=== PATIENT | male | born 1955 | race Caucasian/White ===

== ENCOUNTER 2018-07-11 08:00 | Outpatient (RCR) | payer OTHER, SELFPAY ==
--- NOTE | 2018-06-13 13:36 | PTTR_ITS ---
DATE: 06/13/18 SUBJECTIVE: [place] states he rec'd an injection; autologous blood, into the right elbow yesterday. This was the most painful injection he has had thus far regarding his right elbow; 3 injections. OBJECTIVE: Manual therapy: ([id number]). Humeroulnar joint distractions, proximal radial head PA mobs, forearm supination and pronation with hold relax techniques followed by passive wrist flexor and extensor stretching. Ended with cryotherapy x10 min. at no charge. Held on soft tissue mobs secondary to the injection. Will resume this 72 hours post injection when he is seen this coming Monday. Will review his strengthening program, as well, for radial deviation, forearm flexion and eccentric wrist extension. * [x] Ultrasound - (x [8] mins) - [id number]]: applied @3 megahertz 50% pulsed duty phonophoresis with Dex gel to the common extensor tendon on the right Direct treatment time: 45 min. MM/gc
--- NOTE | 2018-06-15 08:30 | PN_ITS ---
DATE: June 15, 2018 SUBJECTIVE: Budcontinues to complain of injection site pain. Has been wearing his arm counterforce brace. Does feel a little better than it did earlier this week when he was in for PT. Treatment: We resume his instrument assisted soft tissue mobilization. Did perform Ultrasound [id number]: phonophoresis 3mhz, 50% pulsed duty 1 w/cm2 with dex dex gel to lateral epicondyle, common extensor tendon. Manual Therapy [id number]: Instrument assisted soft tissue mobilization via Graston techniques with sweeping and fanning with GT 4 and 5 to the dorsal forearm, strumming along the common extensor tendon with GT3 as well as epicondylar framing with GT3. Then performed PRT's to the extensor musculature. Did review Therapeutic Procedure [id number]: Reviewed his therapeutic exercises for eccentric wrist extension and concentric wrist flexion and radial deviation as well as friction massage. Patient is going away on vacation for the next 10 days. Will follow up with him when he returns. Told him to work on his exercises through fatigue. Treatment time: Direct: 45 mins/Total 45 mins Plan: Will see him when he returns from vacation. MM/dl
--- NOTE | 2018-07-05 13:11 | PTTR_ITS ---
DATE: 07/05/18 SUBJECTIVE: [place] states his elbow is still a little sore. Had difficulty while on vacation when trying to kayak, as this aggravated his elbow. Is complaining of global arthralgias, medial and lateral elbows bilaterally, general fatigue in the leg musculature and admits to being a bit depressed. 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 OBJECTIVE: Manual therapy: ([id number]). IASTM via Graston Techniques for sweeping and fanning with GT 4 and 5 with elbow extended and flexed for muscle slack and tense positions. Performed strumming with GT 3 around the lateral epicondyle. Then performed soft tissue mobs, manually, to include PRTs to the extensor musculature. Also, performed proximal radial head mobs, humeroulnar joint distractions followed by hold relax mobs into supination and pronation. Ended with ice at no charge. * [x] Ultrasound - (x 8 mins) - [id number]: applied @1 megahertz 50% pulsed duty phonophoresis w/Dex gel to the right lateral epicondyle Direct treatment time: 8:30 til 9:00 A.M. Assessment: Tolerated session well. Decreased pain upon departing the clinic today. I do feel he'd benefit from more aggressive strengthening, which we will begin next week 2x with Jeremias Meza ATC for wrist extension, eccentric strengthening, finger extensor strengthening, forearm flexor and radial deviation strengthening as well as postural correction exercises. MM/gc
--- NOTE | 2018-07-11 08:00 | PTTR_ITS ---
DATE: 07/11/18 SUBJECTIVE: [place] states he finds the soft tissue mobilization with Graston techniques offers good symptom reduction. Admits he has not been very faithful with his HEP. Ultrasound [id number]: 3mhz, 50% pulsed phono with dex gel to the lateral epicondyle, common extensor tendon of the R arm followed by Manual therapy: ([id number]). Instrument assisted soft tissue mobilization via Graston incorporating fanning and sweeping through the dorsal forearm, extensors with GT 4 and 5 followed by some strumming with GT3 on the common extensor tendon and framing of lateral epicondyle GT 3. Then performed humeral , ulna joint distraction followed by mobilization into supination/pronation, hold/relax x3 in each direction. This was followed by review of his HEP consisting of eccentric wrist extension exercises, concentric wrist flexion and radial deviation. He was told to resume this activity. Direct treatment time: 30 mins Total treatment time: 30 mins P: Continue as above, will continue progressing with his strengthening and incorporate some therabar exercise. MM/dl
== END 2018-07-13 23:59 | disposition home or self-care (01) ==
LOC: PT 08:00
PROVIDERS: PCP Internal Medicine; Referring Provider Nurse Practitioner; Visit Provider Nurse Practitioner
DX: M77.11 Lateral epicondylitis, right elbow (principal)
CPT/HCPCS: 97035; 97110; 97140

== ENCOUNTER 2018-07-16 02:05 | Emergency (ER) | payer OTHER, SELFPAY ==
[2018-07-16] VITALS (9 sets, daily range): BP systolic 142–149; BP diastolic 76–83; PULSE 61–67; RESP 12–20; TEMP 36.8; O2SAT 94–98
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
[2018-07-16] MEDS: Ibuprofen 600 MG TAB PO (02:42)
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
== END 2018-07-16 02:55 | disposition home or self-care (01) ==
PROVIDERS: Emergency Provider Emergency Medicine; PCP Internal Medicine
DX: T75.4XXA Electrocution, initial encounter (principal); S80.02XA Contusion of left knee, initial encounter; W86.8XXA Exposure to other electric current, initial encounter; Y99.0 Civilian activity done for income or pay
CPT/HCPCS: 93005; 99284; 93010

== ENCOUNTER 2018-08-27 12:52 | Outpatient (REF) | payer OTHER, SELFPAY ==
[2018-08-27 20:42] LABS: HCT 43.2 % (40.0-50.0); Mean Corp. HGB Concentration 34.7 g/dL (32.0-36.0); Mean Corpuscular Hemoglobin 31.2 pg (27.0-33.0); Mean Corpuscular Volume 89.8 fL (80-95); Mean Platelet Volume 10.5 fL (8.0-11.0); Platelet Count 177 x1000/uL (130-400); RBC 4.81 m/cumm (4.50-6.00); RBC Distribution Width 13.5 % (11.8-14.1); White Blood Cell Count 6.66 k/cumm (4.4-10.8)
[2018-08-27 21:08] LABS: Hemoglobin A1C 5.8 % (4.5-6.2)
[2018-08-27 21:09] LABS: ALT 18 U/L (12-78); AST 23 U/L (15-37); Alkaline Phosphatase 62 U/L (46-116); Anion Gap 10.1 mmol/L (3-11); BUN 15 mg/dL (7-18); Bilirubin, Total 0.8 mg/dL (0.2-1.0); CO2 27.9 mmol/L (21.0-32.0); CREATININE 1.03 mg/dL (0.70-1.30); Calcium 9.1 mg/dL (8.5-10.1); Chloride 105 mmol/L (98-107); Glucose 111 mg/dL (70-100); Potassium 4.2 mmol/L (3.5-5.1); Sodium 143 mmol/L (136-145); TSH (W/Ref FT4) 0.87 uIU/mL (0.358-3.74)
[2018-08-27 22:37] LABS: Vitamin D 25 Total 24.1 ng/ml (30-100)
== END 2018-08-27 13:12 ==
LOC: NCHCN 12:52
PROVIDERS: PCP Internal Medicine; Visit Provider Internal Medicine
DX: R53.83 Other fatigue (principal)
CPT/HCPCS: 80053; 82306; 85027; 83036; 84443

== ENCOUNTER 2018-11-11 21:01 | Emergency (ER) | payer OTHER, SELFPAY ==
[2018-11-11 21:04] VITALS: BP 152/88; PULSE 76; RESP 16; TEMP 36.6; O2SAT 97
--- NOTE | 2018-11-11 21:18 | DI.RAD_ITS ---
SYMPTOMS/DIAGNOSIS: PAIN S/P FALL LUMBAR SPINE: There are no prior comparison exams. Degenerative disc changes are noted. No acute fracture is identified. The alignment appears normal. The SI joints and visualized portions of the hip joints appear intact. IMPRESSION: Degenerative changes. No acute abnormality.
--- NOTE | 2018-11-11 21:18 | DI.CT_ITS ---
SYMPTOMS/DIAGNOSIS: PAIN S/P FALL NONCONTRAST HEAD CT: No intracranial hemorrhage or skull fracture is seen. There is no significant atrophy or visible white matter changes. The ventricles are normal in size. The sinuses and mastoid air cells appear clear. IMPRESSION: Negative head CT. CT OF THE CERVICAL SPINE: No fracture or subluxation is seen. There are advanced degenerative disc changes from C4-5 through C7-T1. Facet joint degenerative changes are also seen. IMPRESSION: Degenerative changes. No acute abnormality.
[2018-11-11] MEDS: Acetaminophen 500 MG TAB 1000 MG PO (21:23)
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
--- NOTE | 2018-11-11 22:34 | DI.VRAD_ITS ---
EXAM: CT Head Without Contrast EXAM DATE/TIME: 11/11/2018 9:19 PM CLINICAL HISTORY: 63 years old, male; Pain; Headache; Post-traumatic; Neck pain; Patient HX: Pain after fall TECHNIQUE: Axial computed tomography images of the head/brain without contrast. All CT scans at this facility use at least one of these dose optimization techniques: automated exposure control; mA and/or kV adjustment per patient size (includes targeted exams where dose is matched to clinical indication); or iterative reconstruction. Coronal and sagittal reformatted images were created and reviewed. COMPARISON: No relevant prior studies available. FINDINGS: Brain: There is mild diffuse cerebral atrophy present, consistent with this patient's age. There is no significant white matter disease present. There is no evidence of intracranial hemorrhage. There is no evidence of acute intracranial injury or other pathologic process. There is no evidence of an acute ischemic event. No evidence of an acute intracranial abnormality. Ventricles: The ventricular system is normal in caliber and are seen in the midline. Bones/joints: The orbits are normal without evidence of fracture. The bony cranium shows no evidence of injury or other acute pathologic processes. Sinuses: Mucoperiosteal thickening consistent with chronic sinusitis. No air-fluid levels to suggest evidence of acute sinusitis. Mastoid air cells: The mastoid aircells are normal. Orbits: There is no evidence of retro-bulbar hemorrhage. There is no evidence of globe or lens injury. Soft tissues: The extracranial soft tissues are normal. IMPRESSION: No evidence of an acute intracranial abnormality. EXAM: CT Cervical Spine Without Contrast EXAM DATE/TIME: 11/11/2018 9:19 PM CLINICAL HISTORY: 63 years old, male; Pain; Headache; Post-traumatic; Neck pain; Patient HX: Pain after fall TECHNIQUE: Axial computed tomography images of the cervical spine without intravenous contrast. All CT scans at this facility use at least one of these dose optimization techniques: automated exposure control; mA and/or kV adjustment per patient size (includes targeted exams where dose is matched to clinical indication); or iterative reconstruction. Coronal and sagittal reformatted images were created and reviewed. COMPARISON: No relevant prior studies available. FINDINGS: Vertebrae: There is no evidence of acute vertebral body element or posterior vertebral element fracture. The anterior posterior borders of the vertebral bodies are in good alignment. No evidence of acute subluxation. No evidence of compression fractures. There are moderate to severe degenerative changes of the cervical spine. There are moderate degenerative changes of the facets. There are moderate to severe degenerative changes of the uncovertebral joints. The visualized portions of the skull base and brain are unremarkable. Discs/Spinal canal/Neural foramina: There are moderate to severe degenerative changes of the discs. Moderate neurforaminal narrowing secondary to degenerative changes present. Mild to moderate narrowing of the central spinal canal secondary to degenerative changes. There is no evidence of acute disc injury. The spinal canal and cord are otherwise normal. Soft tissues: Calcifications seen within the hypopharyngeal soft tissues bilaterally consistent with old inflammatory change. The prevertebal, paravertebral, pharyngeal, hypopharyngeal, and laryngeal soft tissue structures are otherwise unremarkable. Lymph nodes: There is no evidence of lymphadenopathy. Lungs: The visualized portions of the lung apices are unremarkable. IMPRESSION: 1. There is no evidence of acute vertebral body element or posterior vertebral element fracture. 2. The anterior posterior borders of the vertebral bodies are in good alignment. No evidence of acute subluxation. 3. There are moderate to severe degenerative changes of the cervical spine. 4. There is no evidence of acute disc injury. Dictated and Authenticated by: Vince Owusu MD. Ordering:RADHA Elizalde MD
--- NOTE | 2018-11-11 22:36 | DI.VRAD_ITS ---
EXAM: XR Lumbar Spine, 4 or 5 Views EXAM DATE/TIME: 11/11/2018 10:01 PM CLINICAL HISTORY: 63 years old, male; Pain; Low back pain; Patient HX: Trauma, fall TECHNIQUE: XR of the lumbar spine, 4 or 5 views. COMPARISON: No relevant prior studies available. FINDINGS: Vertebrae: Mild chronic compression of the lumbar vertebral bodies with sclerosis. There is no evidence of acute compression fractures or deformities. Spinal alignment is normal. Narrowing of the intervertebral disc spaces between L1 and L2, L2-L3, L3-L4 and L5-S1. There is mild degenerative osteophytosis and sclerosis. The facet joints show no evidence of degeneration. Sacrum/coccyx: The sacroiliac joints are within normal limits. Soft tissues: There are no soft tissue calcifications or masses. IMPRESSION: Degenerative changes of the lumbosacral spine no definitive evidence of acute fracture subluxation Dictated and Authenticated by: Vince Owusu MD. Ordering:RADHA Elizalde MD
[2018-11-11] MEDS: Cyclobenzaprine 10 MG TAB PO (22:53)
[2018-11-11 22:58] VITALS: BP 133/77; PULSE 72; RESP 16; O2SAT 95
== END 2018-11-11 23:00 | disposition home or self-care (01) ==
PROVIDERS: Emergency Provider Emergency Medicine; PCP Internal Medicine
DX: S09.90XA Unspecified injury of head, initial encounter (principal); S16.1XXA Strain of muscle, fascia and tendon at neck level, initial encounter; W00.0XXA Fall on same level due to ice and snow, initial encounter; S30.0XXA Contusion of lower back and pelvis, initial encounter
CPT/HCPCS: 99284; 70450; 72110; 72125

== ENCOUNTER 2019-03-21 07:33 | Outpatient (CLI) | payer OTHER, SELFPAY ==
[2019-03-21 08:12] LABS: Abs Immature Grans 0.01 k/cumm (0.0-0.09); Absolute Basophil Count 0.02 k/cumm (0.0-0.2); Absolute Lymphocyte Count 2.12 k/cumm (1.2-3.4); Absolute Monocyte Count 0.62 k/cumm (0.11-0.7); Absolute Neutrophil Count 4.08 k/cumm (1.2-6.7); Basophils % 0.3; Eosinophils % 2.8; HCT 44.3 % (40.0-50.0); HGB 15.1 g/dL (13.5-17.5); Immature Grans % 0.1; Lymphocytes % 30.1; Mean Corp. HGB Concentration 34.1 g/dL (32.0-36.0); Mean Corpuscular Hemoglobin 30.1 pg (27.0-33.0); Mean Corpuscular Volume 88.4 fL (80-95); Mean Platelet Volume 9.9 fL (8.0-11.0); Monocytes % 8.8; Neutrophils % 57.9; Platelet Count 172 x1000/uL (130-400); RBC 5.01 m/cumm (4.50-6.00); RBC Distribution Width 13.2 % (11.8-14.1); White Blood Cell Count 7.05 k/cumm (4.4-10.8)
[2019-03-21 08:50] LABS: Hemoglobin A1C 5.8 % (4.5-6.2)
[2019-03-21 09:09] LABS: ALT 15 U/L (12-78); AST 20 U/L (15-37); Albumin 3.9 g/dL (3.4-5.0); Alkaline Phosphatase 56 U/L (46-116); Anion Gap 11.6 mmol/L (3-11); BUN 15 mg/dL (7-18); Bilirubin, Total 0.8 mg/dL (0.2-1.0); CO2 27.4 mmol/L (21.0-32.0); CREATININE 1.06 mg/dL (0.70-1.30); Calcium 8.9 mg/dL (8.5-10.1); Chloride 104 mmol/L (98-107); Cholesterol 165 mg/dL (50-200); Glucose 96 mg/dL (70-100); HDL Cholesterol 38 mg/dL (40-60); LDL CHOLESTEROL 114 mg/dL (<100); Potassium 3.8 mmol/L (3.5-5.1); Sodium 143 mmol/L (136-145); Total Protein 6.8 g/dL (6.4-8.2); Triglyceride 95 mg/dL (30-150)
[2019-03-21 09:25] LABS: Vitamin D 25 Total 30.7 ng/ml (30-100)
[2019-03-21 09:27] LABS: NT-proBNP 27 pg/mL
== END 2019-03-21 07:53 ==
PROVIDERS: PCP Internal Medicine; Visit Provider Internal Medicine
DX: R53.83 Other fatigue (principal); R05 Cough; G47.33 Obstructive sleep apnea (adult) (pediatric); J30.81 Allergic rhinitis due to animal (cat) (dog) hair and dander; E55.9 Vitamin D deficiency, unspecified; R06.01 Orthopnea; Z00.00 Encounter for general adult medical examination without abnormal findings
CPT/HCPCS: 36415; 80053; 80061; 82306; 82533; 83721; 83036; 83880; 85025

== ENCOUNTER 2019-06-15 08:34 | Emergency (ER) | payer OTHER, SELFPAY ==
[2019-06-15 08:39] VITALS: BP 143/94; PULSE 70; RESP 15; TEMP 37; O2SAT 100
--- NOTE | 2019-06-15 08:56 | W.ED.GENAD ---
Discharge Plan Disposition Patient Disposition: HOME Condition: Stable Discharge Details Chief Complaint: Nk/Back Pain Clinical Impression: Acute thoracic myofascial strain Primary Care Provider: Sonu Espinosa ED Provider: Cristy Cox Home Meds and New Rx's Prescriptions: New cyclobenzaprine 10 mg tablet 10 mg PO TID PRN (Reason: muscle spasm) Qty: 10 RF: 0 Continued multivitamin [Multi-Day] 1 EACH tablet 1 ea PO DAILY RF: 0 cholecalciferol (vitamin D3) 5,000 UNIT tablet 5,000 unit PO DAILY RF: 0 acetaminophen [Mapap Extra Strength] 500 MG tablet 500 mg PO Q4H PRN PRNRF: 0 ibuprofen 600 MG tablet 600 mg PO Q6H PRN (Reason: Pain) Qty: 20 RF: 0 cyclobenzaprine 10 mg tablet 10 mg PO TID PRN (Reason: pain) Qty: 20 RF: 0 Discharge Instructions Instructions: Muscle Strain (ED) Additional Instructions: Alternate Tylenol and Motrin as needed and directed for pain. Alternate ice and heat to the affected area several times daily for 20 minutes at a time. Follow-up with your primary care doctor next week for reevaluation. Return to the emergency department if you develop any worsening or new concerning symptoms. 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 Pain extends from bilateral upper thoracic down to upper lumbar paraspinal region. Denies any radiation of pain to his upper or lower extremities. No cauda equina symptoms. No numbness or weakness in his arms. He has not taken anything for pain. He has tenderness to palpation of bilateral paraspinal thoracic and lumbar regions. No evidence of trauma. No focal deficits. Neurovascularly intact. As there is no direct or blunt trauma, do not see an indication for imaging and patient is agreeable. He is declining any medication for pain here. He is requesting a prescription for flexible which is worked for similar injuries in the past. Prescription for Flexeril given. Patient advised to alternate Tylenol and Motrin, ice and heat. He is advised to follow-up with his primary care doctor for reevaluation and to return here at any time if worse. Medical Records Medical records reviewed: Yes I reviewed the patient's medical records. HPI General Mode of arrival: ambulatory. Date/Time Provider Initiated Documentation: 06/15/19 08:45. Limitations to Documentation: no limitations. Information obtained by: patient. 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 Patient states the patient became weak and he held likely 75% of the patient's weight to prevent him from falling. He is now complaining of pain extending from his bilateral upper back near his trapezius down to his upper lower back bilaterally. He has not taken any medication for pain. Denies any extension of pain, numbness or weakness in his upper or lower extremities. Related Data Home Medications Medication Instructions Recorded Confirmed acetaminophen [Mapap Extra 500 mg PO Q4H PRN PRN 03/30/13 11/11/18 Strength] cholecalciferol (vitamin D3) 5,000 unit PO DAILY 03/30/13 11/11/18 multivitamin [Multi-Day] 1 ea PO DAILY 03/30/13 11/11/18 ibuprofen 600 mg PO Q6H PRN #20 tab 12/29/17 11/11/18 cyclobenzaprine 10 mg PO TID PRN #20 tab 11/11/18 cyclobenzaprine 10 mg PO TID PRN #10 tab 06/15/19 Previous Rx's Medication Instructions Recorded ibuprofen 600 mg PO Q6H PRN #20 tab 12/29/17 cyclobenzaprine 10 mg PO TID PRN #20 tab 11/11/18 cyclobenzaprine 10 mg PO TID PRN #10 tab 06/15/19 Allergies Allergy/AdvReac Type Severity Reaction Status Date / Time Latex, Natural Rubber Allergy Mild Itching Unverified 11/11/18 21:18 loratadine [From Claritin] AdvReac Intermediate COUGH Unverified 11/11/18 21:18 General Stated Complaint: Nk/Back Pain CASTRO: 3 Review of Systems Review of Systems All systems reviewed & are unremarkable except as noted in HPI and below Constitutional Reports as per HPI, Denies chills and Denies fever(s) Eyes Denies blurry vision ENT Denies dizziness, Denies sore throat and Denies throat swelling Cardiovascular Denies chest pain and Denies dyspnea Respiratory Denies cough and Denies dyspnea Gastrointestinal Denies abdominal pain, Denies diarrhea and Denies vomiting Genitourinary Denies hematuria and Denies dysuria Musculoskeletal Reports back pain and Denies numbness Integumentary/Breasts Denies lesions and Denies rash Neurologic Denies dizziness, Denies focal weakness and Denies numbness Allergic/Immunologic Denies throat swelling [facility] Medical History Obstructive sleep apnea (Chronic) Surgical History H/O hand surgery (Inactive) Social History Smoking/Tobacco Use Status: Never Drug use: Never Substance use type: does not use Do you feel safe in your relationship?: Yes Exam Const General: cooperative, healthy appearing and no acute distress HENMT Head: normal to inspection Face and sinus: normal facial exam Eyes General: appearance normal, both eyes and all related structures EOM: EOM intact bilaterally Neck Neck: normal visual inspection and No submandibular swelling Lymphatic: no lymphadenopathy noted Chest Chest: normal inspection of the chest and no tenderness Resp Effort & Inspection: normal respiratory effort and able to speak in complete sentences Cardio Rate: regular rate Back/Spine/Pelvis Thoracic/Lumbar Spine: thoracic and lumbar spine normal to inspection, paraspinal tenderness (extending from upper thoracic to upper lumbar b/l), No thoracic spinal tenderness and No lumbar spinal tenderness Skin General skin exam: no rashes or lesions noted Neuro General: alert, awake and oriented x3 Cognition: normal cognition Speech: speech normal Motor: muscle tone normal throughout and strength 5/5 throughout Sensory Exam: no sensory deficits noted Extrem General: normal to inspection, full ROM, normal capillary refill, no calf tenderness bilaterally and no edema Other: B/L radial/ulnar pulses intact. Psych Appearance: grossly normal Mental Status: mental status grossly normal Speech and Movement: speech and movement normal Affect: normal affect Course Vital Signs Temperature 98.6 F 06/15/19 08:39 Pulse 70 06/15/19 08:39 Respiratory Rate 15 06/15/19 08:39 Blood Pressure 143/94 H 06/15/19 08:39 Pulse Oximetry 100 06/15/19 08:39 Temperature 98.6 F 06/15/19 08:39 Temperature Source Skin 06/15/19 08:39 Pulse 70 06/15/19 08:39 Respiratory Rate 15 06/15/19 08:39 Respiratory Effort Non-Labored 06/15/19 08:39 Blood Pressure 143/94 H 06/15/19 08:39 Blood Pressure Position Sitting 06/15/19 08:39 Pulse Oximetry 100 06/15/19 08:39 Oxygen Delivery Method Room Air 06/15/19 08:39 Oxygen Flow Rate 0 06/15/19 08:39
== END 2019-06-15 09:25 | disposition home or self-care (01) ==
PROVIDERS: Emergency Provider Physician Assistant; PCP Internal Medicine
DX: S29.012A Strain of muscle and tendon of back wall of thorax, initial encounter (principal); X50.0XXA Overexertion from strenuous movement or load, initial encounter; Y99.0 Civilian activity done for income or pay
CPT/HCPCS: 99283

== ENCOUNTER 2019-10-16 09:09 | Outpatient (CLI) | payer OTHER, SELFPAY ==
--- NOTE | 2019-10-16 16:14 | DI.RAD_ITS ---
EXAM: XR HIP PELVIS ADULT BL INDICATION: HIP PAIN LT, M25.552, BACK PAIN LUMBAR RADICULOPATHY, M54.16, RT KNEE PAIN, M25.561 COMPARISON: XR lumbar spine complete from 11/11/2018 TECHNIQUE: 2D digital imaging was performed. FINDINGS: The hip joint spaces are well maintained. There is minimal acetabular spurring. The femoral heads are well maintained. There is mild spurring at the inferior SI joints. IMPRESSION: Mild degenerative changes.
== END 2019-10-16 09:29 ==
PROVIDERS: PCP Internal Medicine; Visit Provider Internal Medicine
DX: M25.552 Pain in left hip (principal); M54.5 Low back pain; M25.561 Pain in right knee; M53.3 Sacrococcygeal disorders, not elsewhere classified
CPT/HCPCS: 73521

== ENCOUNTER 2019-10-30 00:57 | Outpatient (CLI) | payer OTHER, SELFPAY ==
--- NOTE | 2019-10-30 08:55 | DI.MRI_ITS ---
EXAM: MR LUMBAR SPINE WO CLINICAL HISTORY: BACK PAIN LUMBAR WITH RADICULOPATHY, M54.16. TECHNIQUE: Multiplanar multisequence MRI was performed. COMPARISON: XR lumbar spine complete from 11/11/2018 FINDINGS: T11-12 and T12-L1 levels are unremarkable. The conus medullaris terminates at T12-L1. There is mild loss of disc height and slight disc bulging at L1-2. There is mild to moderate broad-based disc bulging at L2-3. There are mild facet degenerative change s and mild ligamentous hypertrophy but no significant neural foraminal narrowing or central canal alla nosis. At L L3-4, there is broad-based disc bulging. There is a superimposed tiny central disc protrusion. There is ligamentous hypertrophy and facet degenerative changes which combine to produce a moderate degree of central canal stenosis as well as moderate to severe bilateral neural foraminal narrowing. The L4-5 disc is well maintained in height. There is mild lateral bulging. There are mild facet join t degenerative changes and hypertrophy. There is no central canal stenosis. There is moderate bilat eral neural foraminal narrowing. There are bilateral L5 pars defects and slight L5-S1 spondylolisthesis, unchanged from previous plain films. There is mild concentric disc bulging but no central canal stenosis. There [id number] bilateral neural foraminal narrowing. The marrow signal appears normal. The aorta and visualized p ortions of the iliac arteries are normal in diameter. IMPRESSION: 1. Combination of degenerative disc changes, small central disc protrusion, facet degenerative carroll ge and ligamentous hypertrophy causes moderate central canal stenosis and moderate to severe bilatera l neural foraminal narrowing at L3-4. 2. Stable L5 spondylolysis and mild spondylolisthesis at L5-S1. Facet degenerative changes cause mary ateral neural foraminal narrowing at multiple levels.
== END 2019-10-30 01:17 ==
PROVIDERS: PCP Internal Medicine; Visit Provider Internal Medicine
DX: M54.16 Radiculopathy, lumbar region (principal); M54.5 Low back pain; M51.16 Intervertebral disc disorders with radiculopathy, lumbar region; M47.26 Other spondylosis with radiculopathy, lumbar region; M43.06 Spondylolysis, lumbar region; M43.17 Spondylolisthesis, lumbosacral region
CPT/HCPCS: 72148

== ENCOUNTER 2019-11-20 01:51 | Outpatient (CLI) | payer OTHER, SELFPAY ==
--- NOTE | 2019-11-20 08:18 | DI.MRI_ITS ---
EXAM: MR LOWER JOINT LT WO CLINICAL HISTORY: LT HIP PAIN, M25.552. TECHNIQUE: Multiplanar multisequence MRI was performed. COMPARISON: XR HIP PELVIS ADULT BL from 10/16/2019 FINDINGS: There is abnormal high signal in the marrow of the left femoral head and neck as well as in the adjac ent acetabulum. A small joint effusion is also present. There is no evidence of a discrete fracture . There appears to be slight collapse of the superior posterior femoral head. Overall, the marrow s hows some red marrow reconversion, which could be seen with anemia. The bladder, prostate and semina l vesicles are unremarkable. No significant abnormalities seen of the right hip. IMPRESSION: Marked marrow edema and slight collapse of the superior right femoral head, suspicious for avascular necrosis.
== END 2019-11-20 02:11 ==
PROVIDERS: PCP Internal Medicine; Visit Provider Internal Medicine
DX: M25.552 Pain in left hip (principal); M25.452 Effusion, left hip; M89.8X8 Other specified disorders of bone, other site
CPT/HCPCS: 73721

== ENCOUNTER 2019-12-13 07:36 | Outpatient (CLI) | payer OTHER, SELFPAY ==
[2019-12-13 08:35] LABS: HCT 44.6 % (40.0-50.0); HGB 14.9 g/dL (13.5-17.5); Mean Corp. HGB Concentration 33.4 g/dL (32.0-36.0); Mean Corpuscular Hemoglobin 29.7 pg (27.0-33.0); Mean Platelet Volume 9.6 fL (8.0-11.0); Platelet Count 190 x1000/uL (130-400); RBC 5.01 m/cumm (4.50-6.00); RBC Distribution Width 13.5 % (11.8-14.1); White Blood Cell Count 6.77 k/cumm (4.4-10.8)
[2019-12-13 08:55] LABS: Anion Gap 7.5 mmol/L (3-11); BUN 15 mg/dL (7-18); CO2 29.5 mmol/L (21.0-32.0); CREATININE 1.11 mg/dL (0.70-1.30); Calcium 8.6 mg/dL (8.5-10.1); Chloride 107 mmol/L (98-107); Glucose 103 mg/dL (74-106); Potassium 3.9 mmol/L (3.5-5.1); Sodium 144 mmol/L (136-145)
[2019-12-16 08:06] LABS: Vitamin D 25 Total 24.7 ng/ml (30-100)
[2019-12-18 11:37] LABS: Testosterone, Free 7.38 ng/dL (3.67-13.9); Testosterone, Total 369 ng/dL (240-950)
== END 2019-12-13 07:56 ==
PROVIDERS: Student in an Organized Health Care Education/Training Program; PCP Internal Medicine; Visit Provider Internal Medicine
DX: M25.552 Pain in left hip (principal); M87.052 Idiopathic aseptic necrosis of left femur; M16.12 Unilateral primary osteoarthritis, left hip; R53.83 Other fatigue; F41.9 Anxiety disorder, unspecified; Z01.818 Encounter for other preprocedural examination; Z01.812 Encounter for preprocedural laboratory examination
CPT/HCPCS: 36415; 80048; 82306; 82533; 84402; 84403; 85027; 86850; 86900; 86901

== ENCOUNTER 2019-12-16 11:53 | Outpatient (CLI) | payer OTHER, SELFPAY ==
--- NOTE | 2019-12-16 13:04 | DI.RAD_ITS ---
EXAM: XR PELVIS AP INDICATION: surgical planning. COMPARISON: XR HIP PELVIS ADULT BL from 10/16/2019 TECHNIQUE: 2D digital imaging was performed. FINDINGS: In the left hip there is moderate narrowing of the joint space. In the right hip there is mild narro wing of the joint space. The bones are normally mineralized and intact. The soft tissues are unrema rkable.
== END 2019-12-16 12:13 ==
PROVIDERS: PCP Internal Medicine; Visit Provider Physician Assistant
DX: M16.0 Bilateral primary osteoarthritis of hip (principal)
CPT/HCPCS: 72170

== ENCOUNTER 2019-12-31 11:52 | Inpatient (IN) | payer OTHER, SELFPAY ==
[2019-12-31] VITALS (13 sets, daily range): BP systolic 83–136; BP diastolic 54–88; PULSE 58–80; RESP 11–19; TEMP 34.1–36.9; O2SAT 96–98
--- NOTE | 2019-12-31 11:00 | DI.RAD_ITS ---
EXAM: XR HIP LT IN OR CLINICAL HISTORY: left total hip anterior. TECHNIQUE: 2D digital imaging was performed. COMPARISON: XR PELVIS AP from 12/16/2019 FINDINGS: Fluoroscopy was utilized by Dr. Colvin during the placement of a left total hip replacement. The o rthopedic hardware appears in good position. Please refer to the procedure report for complete detai ls. IMPRESSION: Status post left total hip replacement.
[2019-12-31] MEDS: Lactated Ringers 1,000 ML 80 ML IV ×3 (12:42→18:31)
[2019-12-31] MEDS: Acetaminophen 500 MG TAB 1000 MG PO ×2 (12:47→20:43)
[2019-12-31] MEDS: Celecoxib 200 MG CAP 400 MG PO (12:47)
[2019-12-31 13:18] LABS: HCT 42.6 % (40.0-50.0); HGB 14.7 g/dL (13.5-17.5); Mean Corp. HGB Concentration 34.5 g/dL (32.0-36.0); Mean Corpuscular Hemoglobin 30.1 pg (27.0-33.0); Mean Corpuscular Volume 87.3 fL (80-95); Mean Platelet Volume 9.2 fL (8.0-11.0); Platelet Count 182 x1000/uL (130-400); RBC 4.88 m/cumm (4.50-6.00)
[2019-12-31] MEDS: ceFAZolin 2 GM/50 ML BAG IVPB (14:02)
[2019-12-31 14:32] LABS: Anion Gap 10.5 mmol/L (3-11); BUN 14 mg/dL (7-18); CO2 27.5 mmol/L (21.0-32.0); CREATININE 1.06 mg/dL (0.70-1.30); Calcium 8.4 mg/dL (8.5-10.1); Chloride 106 mmol/L (98-107); Glucose 108 mg/dL (74-106); Potassium 3.8 mmol/L (3.5-5.1); Sodium 144 mmol/L (136-145)
[2019-12-31] MEDS: Bupivacaine 0.25% Pres-Free 30 ML VIAL (15:23)
[2019-12-31] MEDS: Ketorolac 30 MG/ML VIAL (15:23)
[2019-12-31] MEDS: fentaNYL 100 MCG/2 ML VIAL IVP ×2 (19:23→19:29)
--- NOTE | 2019-12-31 19:34 | W.PM.OP ---
Date of service: 12/31/19 Time of Service: 18:34 Operative Note Operative Note DATE OF PROCEDURE: 12/31/19 PRE-OP DIAGNOSIS: Left Hip Avascular Necrosis POST-OP DIAGNOSIS: other (Left Hip Avascular Necrosis and Hip Dysplasia) PROCEDURE: Left Anterior Total Hip Arthroplasty SURGEON: Gurjit Colvin MARKETING WRITER: Marcell Garcia ANESTHESIA: spinal ESTIMATED BLOOD LOSS: 1,800 PATHOLOGY: none sent COMPLICATIONS: None Patient was transported to: PACU Patient's condition: stable Implants: 1. Depuy Zearing Acetabular Component, 54mm 2. Depuy Acetabular Liner, [id number] 3. Depuy Corail Coxa Vara Femoral Stem, Size 13 4. Depuy Altrx Ceramic Femoral Head, Size 36+5mm Indications: I have seen Godwni in clinic for symptoms of hip pain from avascular necrosis in the setting of hip dysplasia, confirmed with radiographic findings (MRI and X-ray). Godwin has exhausted nonoperative methods and was having significant limitations in daily function and desired better function and less pain. I discussed the technical details of a hip replacement. I explained the risks of the procedure to include, but not limited to, bleeding, infection, pain, stiffness, fracture, damage to nerves and vessels, damage to muscles and tendons, loosening, instability, leg length inequality, need for repeat procedure, blood clot and cardiopulmonary demise. Despite these risks, Godwin elected to proceed. Findings: There was softening of the superior, weight bearing portion of the femoral head with obvious necrosis and articular collapse. He was significantly tight even on initial dissection. There is a significant adduction contracture and notable deformity of the femoral neck. There was concern of anterior instability which was resolved by going to a lateralize neck. Procedure Description: Godwin was greeted in the preoperative holding area where the correct side was identified and marked. The consent was reviewed with the patient and signed. The history and physical was updated. All questions were answered. Godwin was taken back to the operating room. A spinal anesthestic was then administered. The patient was placed into the supine position on the operating room table. The patient was then positioned onto the ARCH table. Both feet were wrapped with Webrill cotton wrap along with Coban. The feet were placed in specialized boots for the ARCH table, well seated within the boot and secured. SCDs were applied. The patient was then slid down onto a peroneal post and the nonoperative leg was secured in a leg de jesus attached to the table. The operative side was placed into the ARCH table attachment and bed height and positioning was secured. A preoperative AP pelvis was obtained to serve as a reference for determining leg lengths. Prophylactic antibiotics in the form of cefazolin were administered. 1g of Tranxemic Acid was given intravenously within 30 minutes of incision. The left leg was then prepped with Chloraprep and draped in a standard fashion. A second prep was performed prior to placing the final shower-curtain type drape with Iodine impregnated skin protection. A timeout to confirm correct identity, side and site, procedure, allergies, anesthesia, and medical concerns was performed. An obliquely oriented incision was made starting lateral to the ASIS and running distal over the Tensor Fascia Dolly (TFL) muscle belly toward the fibular head, approximately 10cm. The skin and soft tissue was dissected sharply, through Fermin?s fascia, and to the fascia of the TFL. With the fascia and superior border of the IT band identified, the fascia was incised with a new knife just above any perforators from the IT band. The TFL muscle belly was bluntly dissected away from the fascia and moved laterally. The fat between TFL and rectus was identified to ensure the dissection was not within the TFL. Blunt dissection created space between abductors and the capsule and retractor was placed over the lateral femoral neck. The fibers of the rectus femoris tendon were identified and these were freed from the anterior capsule. A second cobra retractor was placed around the medial femoral neck. The TFL was further retracted laterally to show the deep fascia. Careful dissection through this layer identified three main crossing vessels of the lateral femoral circumflex. These were cauterized in multiple locations and then cut without any noticeable bleeding. The TFL was further released bluntly from the deep fascia to expose anterior hip capsule and fat The Bayron orthopaedic retractor was then placed beneath the TFL and against sartorius and medial soft tissues to protect and retract the soft tissues. Even retraction at this point is quite difficult. There is very little excursion of the muscles. The fascia was released additionally both proximal and distal to try to encourage better mobility of the musculature. A T-capsulotomy was then performed starting at the superior lateral acetabulum and moving distally to the intertrochanteric ridge. These capsular flaps were tagged with a No. 1 Ethibond and elevated from within. The capsular flaps were released to the shoulder of the lateral neck and to the lesser trochanter to give excellent visualization of the proximal femur. A neck osteotomy was performed using an oscillating saw based on preoperative templates. This cut started above the shoulder and of the lateral neck and exited medially. The saw was at all times directed medially to avoid injury to the greater trochanter. 6cm of traction was applied to the leg and the osteotomy opened. The femoral head was removed with a corkscrew, making sure to protect the TFL on its exit. This was measured on the back table to determing the starting reamer size. There was a notable soft spot to the superior portion of the femoral head which was easily penetrated with a [place] and showed signs of obvious necrosis. There is also articular collapse at that area. Portions of the rectus obscuring visualization were minimally elevated off the superior acetabulum. An anterior retractor was placed over the anterior wall between capsule and labrum and held with the Gripper retraction system. A posterior retractor was placed similarly. This provided excellent visualization. The contents of the cotyloid fossa were removed with electrocautery and the labrum was removed with a knife. There was significant chondromalacia of the superior acetabulum. Acetabular reaming began with a 52 mm reamer. This first reaming was directed anterior to posterior and medial to get down to the true floor. I did make sure to medialize all the way to the ilioischial line given the narrow starting offset. I then reamed sequentially up to a 54 mm reamer where good fit was obtained. The larger reamers were oriented based on anatomical reference of the anterior and lateral bhandari to ensure proper abduction and anteversion. Positioning and size was confirmed with the fluoroscopy. A 54 mm Depuy Zearing acetabular component was selected. The deep tissues were irrigated. The acetabular component was then impacted in a position of about 40-45 degrees of abduction and 15-20 degrees of anteversion, using the patient?s anatomy as the ultimate landmark. Fluoroscopy was used to confirm this. There was excellent histological illustrator of the acetabular component and the inserting handle was removed. A primary acetabular screw was placed into the ilium by drilling through one of the holes in the acetabular component. This was measured and an approrpriately sized screw was placed with excellent purchase. It was checked not to be proud. A second screw was placed in a similar fashion. The acetabular liner, Depuy [id number] polyethylene liner, was inserted and lined up with the tines of the acetabular component. There was no soft tissue interposition. The liner was then impacted into position and confirmed to be well-seated. A portion of the mitra-articular cocktail was then injected around the acetabulum into the capsule and periosteum. This cocktail consisted of 50cc of 0.25% Bupivicaine and 20cc of Exparel, expanded to a total of 120cc. Traction was released from the femur. The leg was rotated to 120 degrees. Any remaining medial capsule was released until the lesser trochanter was easily palpable. A Daniels retractor was placed medially. The lateral capsule was further released into the shoulder to allow access to the greater trochanter. A Daniels retractor was placed over the greater trochanter which allowed the trochanter to flip in front of the capsule for excellent exposure. The leg was brought down into maximal extension and 20 degrees of adduction while ensuring there was no impingement on the acetabulum. Any remnant capsule within the trochanter was released. Piriformis and obturator externis were identified and protected. There was excellent access to the proximal femur. The lateral neck remnant was removed with a rongeur. A blunt canal probe was used to identify the canal and trajectory for later broaching. A box osteotome initiated the broach course. A small curved rasp and a curved curette were used to work laterally. Broaching then began with a size 8 Corail broach. This was inserted manually around the trochanter and into the canal before mallet blows. The broach was seated to a few millimeters below the cut level based on the neck cut and the preoperative template. Sequential broaching was continued until a tight fit was obtained with good rotational control of the femur. A trial standard neck was inserted along with a +1 trial head. The leg was brought out of extension and adduction and then reduced with traction and internal rotation. Unfortunately, the leg did not reduce easily. There was some soft tissue which was initially interposed which was removed. However, the proximal here almost seem to be elevated. I did not find any points of impingement. However, I did reduce with internal rotation. However, it was unstable and therefore the hip was dislocated and a coxa vara neck with a +5 trial head was inserted. This was then reduced and was noted to be more stable. However, it still had some shock at 70 degrees of external rotation and 20 degrees of extension although it was still stable in this position. Fluoroscopy was used to ensure there was no fracture and the stem was seated well. Leg lengths were checked with an AP pelvis and pelvic reference points. Once content with the desired offset and leg lengths, the leg was brought back into extension, external rotation and adduction. The periosteum and surrounding tissue was injected with remaining portion of the mitra-articular cocktail. The proximal femur was irrigated as well as the deep tissues. The Depuy Corail coxa vara stem, size 13, was then manually inserted into the proximal femur making sure to control rotation. It was then malleted into position with light blows, giving breaks to allow bone expansion and decrease risk of fracture. The selected Depuy Altrx Ceramic Head, size 36+5mm, was then placed onto the clean and dry trunnion and secured with impaction onto the tapered fit. There was noted be a very small crack in the medial calcar which was contained and did not separate with any attempt at prying it open. It did not go below the intertrochanteric line. The leg was brought back out of extension and adduction and reduced with traction and internal rotation. Stability was confirmed with no shuck at 90 degrees of external rotation and 30 degrees of extension. No impingement through range of motion arc. Final x-ray images were obtained with fluoroscopy to confirm adequate positioning and no intraoperative fracture. The deep tissues were thoroughly irrigated with Irrisept chlorhexidine solution. The second dose of TXA 1g was administered intravenously. The TFL fascia was finally closed with a No. 2 Stratafix, barbed suture. Deep tissues were then reapproximated with 0 Vicryl and a running 2-0 Vicryl. The skin was closed with a running 4-0 Monocryl in a subcuticular fashion. This was reinforced with skin glue. A Mepilex silver dressing was applied. At the end of the case, all counts were correct. Godwin was transferred to the hospital bed without difficulty and suffering significant blood loss of 1800 cc. This is mostly due to time in the OR with an oozing wound but no specific vascular injury. There is some concern about the stability of the hip although it was stable with final testing.. Maceo has a good prognosis. Physical therapy will start today and without restrictions, weight-bearing as tolerated, although I recommend knees wider than hips and avoiding hip extension. Aspirin 81mg BID will be used for DVT prophylaxis.
[2019-12-31] MEDS: Aspirin E.C. 81 MG TABEC PO (20:42)
[2019-12-31] MEDS: Celecoxib 200 MG CAP PO (20:42)
[2019-12-31] MEDS: ceFAZolin 1 GM/50 ML BAG IVPB (20:43)
[2019-12-31] MEDS: oxyCODONE 5 MG TAB PO (21:48)
[2020-01-01] MEDS: oxyCODONE 5 MG TAB PO ×4 (00:50→15:56)
[2020-01-01 03:45] VITALS: BP 100/65; BP 107/63; BP 123/73; BP 147/84; PULSE 100; PULSE 92; PULSE 94; PULSE 95; RESP 18; TEMP 37.2; O2SAT 97
[2020-01-01] MEDS: ceFAZolin 1 GM/50 ML BAG IVPB ×2 (04:02→11:37)
[2020-01-01] MEDS: Lactated Ringers 1,000 ML 1000 ML IV ×2 (06:59→13:41)
[2020-01-01 07:59] VITALS: BP 134/74; PULSE 74; RESP 19; TEMP 37.2; O2SAT 95
[2020-01-01 08:00] LABS: HCT 32.1 % (40.0-50.0); HGB 10.7 g/dL (13.5-17.5); Mean Corp. HGB Concentration 33.3 g/dL (32.0-36.0); Mean Corpuscular Hemoglobin 29.8 pg (27.0-33.0); Mean Corpuscular Volume 89.4 fL (80-95); Mean Platelet Volume 9.9 fL (8.0-11.0); Platelet Count 179 x1000/uL (130-400); RBC 3.59 m/cumm (4.50-6.00); RBC Distribution Width 13.1 % (11.8-14.1); White Blood Cell Count 10.59 k/cumm (4.4-10.8)
[2020-01-01] MEDS: Cholecalciferol (Vitamin D3) 1,000 UNIT TAB 5000 UNITS PO (08:20)
[2020-01-01] MEDS: Multivitamin TAB 1 TAB PO (08:21)
[2020-01-01] MEDS: Pantoprazole 40 MG TABCR PO (08:21)
[2020-01-01 08:22] LABS: Anion Gap 6.8 mmol/L (3-11); BUN 18 mg/dL (7-18); CO2 28.2 mmol/L (21.0-32.0); CREATININE 1.25 mg/dL (0.70-1.30); Calcium 7.7 mg/dL (8.5-10.1); Chloride 104 mmol/L (98-107); Estimated GFR 58.15 (mL/min/1.73m2); Glucose 142 mg/dL (74-106); Potassium 3.7 mmol/L (3.5-5.1); Sodium 139 mmol/L (136-145)
[2020-01-01] MEDS: Acetaminophen 500 MG TAB 1000 MG PO ×2 (08:22→13:41)
[2020-01-01] MEDS: Celecoxib 200 MG CAP PO (08:23)
[2020-01-01] MEDS: fentaNYL 100 MCG/2 ML VIAL IVP (08:24)
--- NOTE | 2020-01-01 08:55 | IN_ITS ---
Date of service: 01/01/20 Time of Service: 08:55 PT Notes Visit Reasons: OA (L) HIP Physical Therapy Inpatient Initial Evaluation Date: 01/01/2020 Referring Doctor: Gurjit Colvin M.D. PT Orders: PT CONSULT: s/p ortho surgery; s/p L anterior ROSE Precautions: Fall. Standard. Activity as tolerated. Patient Profile/Admitting Diagnosis: Pt is a 64-year-old male with a history of avascular necrosis and osteoarthritis of the left hip, presenting status post left total hip arthroplasty on post-operative day 0. PMHX: Medical History (Updated 12/12/19 @ 14:12 by Kong Brown) History of asthma (Acute) History of posttraumatic stress disorder (PTSD) (Acute) History of reactive airway disease (Acute) Hx of concussion (Acute) Hx of dislocation of shoulder (Acute) Hx of pleural effusion (Acute) Hx of tuberculosis (Acute) MULTIPLE CXR CLEARING PT. 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 Pt lives at home with , Michael, in [place]. Three stairs to enter the home with a rail on the right. No stairs once in the home. Equipment Owned/DME: cane, front-wheeled walker. Subjective: Pt reports that he is tired and a bit sleepy as he did not sleep well last night. Pt?s notes that he was able to stand at the edge of the bed at 4 A.M and walk to the bathroom. Objective: General Observation: Mepilex dressing over incision. Mental Status: alert and oriented x4 Pain: 4/10 in the L hip ROM: Right Upper Extremity: Shoulder Flexion WFL. Shoulder abduction WFL. Elbow flexion WFL. Wrist flexion WFL. Opening and closing of hand WFL. Left Upper Extremity: Shoulder Flexion WFL. Shoulder abduction WFL. Elbow flexion WFL. Wrist flexion WFL. Opening and closing of hand WFL. Right Lower Extremity: Hip flexion WFL. Hip abduction WFL. Knee flexion WFL. Ankle dorsiflexion WFL. Ankle plantarflexion WFL. Left Lower Extremity: Hip flexion WFL. Hip abduction WFL. Knee flexion WFL. Ankle dorsiflexion WFL. Ankle plantarflexion WFL. Strength: Right Upper Extremity: Shoulder flexors 5/5. Shoulder abductors 5/5. Elbow flexors 5/5. Elbow extensors 5/5. Rat Poisoner strong. Left Upper Extremity: Shoulder flexors 5/5. Shoulder abductors 5/5. Elbow flexors 5/5. Elbow extensors 5/5. Rat Poisoner strong. Right Lower Extremity: Hip flexors 5/5. Hip abductors 5/5. Knee flexors 4+/5. Knee extensors 5/5. Ankle dorsiflexors 5/5. Ankle plantarflexors 5/5. Left Lower Extremity: Hip flexors 4/5. Hip abductors 5/5. Knee flexors 4+/5. Knee extensors 5/5. Ankle dorsiflexors 5/5. Ankle plantarflexors 5/5. Sensation: Intact as to pain and pressure on bilateral lower extremities. Bed Mobility/Transfers: Sit to stand supervision Stand to sit supervision Bed to chair supervision Chair to bed supervision Gait: Pt was able to ambulate 50 feet + 120 feet + 50 feet, WBAT on the L LE, using a front-wheeled walker. Step through gait pattern with asymmetrical step length and height. CGA provided by PT student and supervision by the PT with wheelchair follow provided by the pt?s . He reports that the pain in his hip is reduced with walking. No complaints of dizziness, SOB, chest pain. Required cues to maintain a wide base of support. Balance: Static Sitting: Normal Dynamic Sitting: Normal Static Standing: Good Dynamic Standing: Fair Special Tests: Mobility Limitations Standardized Measure [facility]-PAC 6 clicks Basic Mobility Inpatient Short Form: Raw Score: 22 CMS Score: 21% deficit Informed Consent/Education: Patient instructed in purpose of PT consult and plan of care. Assessment: Pt is a 64-year-old male with a history of avascular necrosis and osteoarthritis of the left hip, presenting status post left total hip arthroplasty on post-operative day zero. He presents to physical therapy with impairment level findings and functional limitations as listed below. Patient presents with clinical signs and symptoms consistent with current/admitting diagnoses that have resulted to mobility limitations, gait instability, and generalized weakness as demonstrated by the following impairment level findings: 1. Decreased strength to B knee flexor muscle groups and L hip flexors. 2. Impaired standing balance 3. Impaired activity tolerance 4. Limitation of joint range of motion in left hip Impairments are contributing to the following functional limitations: 1. Increased dependence with transfers 2. Inability to safely ambulate without assistive device and physical assistance 3. Increase completion time for mobility ADL performance 4. Increased fall risk 5. Inability to negotiate steps alone safely Patient is assessed as a 53833 moderate complexity based on the following: History: He presents to physical therapy with impairment level findings and functional limitations as listed above. AM-PAC raw score of 22 with 21% deficit. Examination: Demonstrable impairment in strength, balance, and range of motion with underlying impairments and functional limitations as documented above Presentation: Evolving Decision Makin moderate complexity Goals: Goals X1 week 1. Sit-Stand independent 2. Stand-Sit independent 3. Bed-Chair independent 4. Chair-Bed independent 5. Independent gait on level surface with use of least restrictive device for at least 300 feet without report of pain nor dyspnea 6. Independent stair negotiation while holding onto bilateral rails for at least 4 steps without report of pain nor dyspnea 7. Independent with home exercise program 8. Good static and dynamic standing balance/tolerance Plan of Care/Treatment Plan: 1-2x/day, 7 days/week x 1 week. Plan of care has been reviewed with the GAMING FLOOR SUPERVISOR providing the service under Physical Therapy direction. Initiate Physical Therapy intervention for strengthening, bed mobility, transfers, gait, stairs, balance training, use of assistive device. DISCHARGE RECOMMENDATIONS: Discharge to home when medically cleared. No equipment recommendations at this time. TREATMENT CODE/TIME: 80948 x 25 minutes + 70055 x 10 minutes beginning at 8:55 A.M. Thank you very much for this referral. David Davila, SPT Doctor of Physical Therapy Student [facility] Supervision provided by Stephanie Edmondson PT, DPT, CLT [facility] [place], [place]
[2020-01-01] MEDS: Aspirin E.C. 81 MG TABEC PO (09:41)
[2020-01-01 12:26] VITALS: BP 132/77; PULSE 87; RESP 19; TEMP 37.2; O2SAT 97
[2020-01-01] MEDS: Normal Saline Flush 10 ML SYR IV (13:42)
--- NOTE | 2020-01-01 13:59 | W.PM.PROGNOT ---
Date of Service Date of service: 01/01/20 Time of Service: 13:59 Assessment and Plan Assessment and plan (1) Avascular necrosis of bone of left hip: Status: Acute Assessment and plan: Godwin is a 64-year-old status post left anterior total arthroplasty. This was a complicated hip with a blood of 1800 cc. His hemoglobin is stable today at 10.7. He is not symptomatic. He has been able to ambulate mobilize which is all encouraging. His Mari catheter has been removed and his urine output has been a little on the sluggish side. Therefore, I will repeat a bolus. He will continue to work physical therapy. I expect he will be able to go home later today or tomorrow. Given the difficulty of the case and the issue with anterior stability during the case, I recommend that he keeps his knees wider than his hips. Otherwise, he has no restrictions. Subjective Subjective Interval history since last seen: But reports some pain about the left hip. He has been able to get out of bed with help of his . He was able to ambulate with physical therapy this morning. He denies any popping or clicking sensation of the left hip. He does report some fullness and pain about the left hip which has responded to pain medications. He has had very mild lightheadedness but no true syncope or presyncope. His urine output has been a little sluggish. Exam Narrative Exam Narrative: Evaluation the left hip shows intact dressings. There is some fullness of the left hip but no ecchymosis. He tolerates some gentle internal X rotation without any significant increase in pain. Objective Objective Clinical Data: Abnormal lab results 12/31/19 01/01/20 01/01/20 Range/Units 13:05 07:08 07:08 RBC 3.59 L (4.50-6.00) m/cumm Hgb 10.7 L D (13.5-17.5) g/dL Hct 32.1 L D (40.0-50.0) % Glucose 108 H 142 H (74-106) mg/dL Calcium 8.4 L 7.7 L (8.5-10.1) mg/dL Vital Signs Temperature 37.2 C 01/01/20 12:26 Temperature Source Tympanic 01/01/20 12:26 Pulse 87 01/01/20 12:26 Pulse Rhythm Regular 12/31/19 23:30 Respiratory Rate 19 01/01/20 12:26 Respiratory Effort Non-Labored 12/31/19 23:30 Respiratory Depth Normal 12/31/19 23:30 Respiratory Pattern Normal 12/31/19 23:30 Blood Pressure 132/77 01/01/20 12:26 Pulse Oximetry 97 01/01/20 12:26 Respiratory End-tidal CO2 34 12/31/19 19:23 Oxygen Delivery Method Room Air 01/01/20 12:26 Oxygen Flow Rate 0 01/01/20 12:26 Pain Level 4 01/01/20 13:41 Intake & Output 12/31/19 01/01/20 01/01/20 23:59 11:59 23:59 Intake Total 2420 / 2420 660 / 660 Output Total 125 / 125 100 / 100 Balance 2295 / 2295 560 / 560 Weight 121.9 kg Intake: IV 2420 / 2420 50 / 50 Oral 610 / 610 Output: Urine 125 / 125 100 / 100 Other: Urine Color Yellow Dark Inés Urine Appearance Cloudy Clear Urine Odor Strong Comment very cloudy strong smelling urine passed in the urinal. Voiding Methods Urinal Laboratory Results WBC 10.59 k/cumm (4.4-10.8) D 01/01/20 07:08 RBC 3.59 m/cumm (4.50-6.00) L 01/01/20 07:08 Hgb 10.7 g/dL (13.5-17.5) L D 01/01/20 07:08 Hct 32.1 % (40.0-50.0) L D 01/01/20 07:08 MCV 89.4 fL (80-95) 01/01/20 07:08 MCH 29.8 pg (27.0-33.0) 01/01/20 07:08 MCHC 33.3 g/dL (32.0-36.0) 01/01/20 07:08 RDW 13.1 % (11.8-14.1) 01/01/20 07:08 Plt Count 179 x1000/uL (130-400) 01/01/20 07:08 MPV 9.9 fL (8.0-11.0) 01/01/20 07:08 Sodium 139 mmol/L (136-145) 01/01/20 07:08 Potassium 3.7 mmol/L (3.5-5.1) 01/01/20 07:08 Chloride 104 mmol/L (98-107) 01/01/20 07:08 Carbon Dioxide 28.2 mmol/L (21.0-32.0) 01/01/20 07:08 Anion Gap 6.8 mmol/L (3-11) 01/01/20 07:08 BUN 18 mg/dL (7-18) 01/01/20 07:08 Creatinine 1.25 mg/dL (0.70-1.30) 01/01/20 07:08 Estimated GFR/1.73 m2 58.15 (mL/min/1.73m2) 01/01/20 07:08 Glucose 142 mg/dL (74-106) H 01/01/20 07:08 Calcium 7.7 mg/dL (8.5-10.1) L 01/01/20 07:08 Patient ABO/Rh A Positive 12/31/19 13:05 Antibody Screen Negative 12/31/19 13:05
--- NOTE | 2020-01-01 14:25 | W.NUTCONSULT ---
Date of service: 01/01/20 Time of Service: 14:25 Nutritional Consult ASSESSMENT: 64 year old male s/p left total hip replacement. Advanced to Regular diet with adequate intake. BMI indicates class 2 obesity. Not considered at nutritional risk at this time. MONITORING AND EVALUATION: weight, po intake, labs Time Spent in Nutritional Counseling and Treatment: 0 time spent face to face
--- NOTE | 2020-01-01 14:39 | CHAPLAIN ---
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 He was up, getting ready to walk with PT when I visited. His , Michael, is also an [employer] nurse and will be caring for Huntington at home after he is discharged. I didn't visit long with Godwin as he was getting ready to work with PT.
--- NOTE | 2020-01-01 14:46 | PTTR_ITS ---
Date of service: 01/01/20 Time of Service: 14:46 PT Notes Visit Reasons: OA (L) HIP 01/01/2020 SUBJECTIVE: [place] stating he is having minimal discomfort overall. This increases slightly with movement. He notes that he was planning on using crutches as his assistive device for home. OBJECTIVE: Seated in his chair with family present. Review knees wider than hips precaution. Agreeable to PT treatment. TRANSFERS Sit to stand: S Stand to sit: S GAIT Device: FWW Weight bearing: AT L Assist: SBA Distance: 100'x2 Deviation: Attempt use of bilateral axillary crutches although pt is not steady and does not feel comfortable. STAIRS: 3-4 steps, 2-6 steps, bilateral rails, step to pattern, SBA. ASSESSMENT: Pt tolerates gait training well with use of FWW. He will benefit from FWW at home to maximize safe ambulation. No difficulty managing stairs this afternoon. PLAN: Continue per POC. Treatment time: 30 minutes [id number] Tomasa Story, DIRECTOR CASE MANAGEMENT
--- NOTE | 2020-01-01 15:20 | PDOC.CMIN ---
- If Service Date Differs Date of service: 01/01/20 Time of Service: 15:20 Care Management Initial Assess REASON FOR HOSPITALIZATION:: L Hip Replacement PAST MEDICAL HISTORY/PAST SURGICAL HISTORY:: Medical History (Updated 12/12/19 @ 14:12 by Kong Brown). History of asthma (Acute). History of posttraumatic stress disorder (PTSD) (Acute). History of reactive airway disease (Acute). Hx of concussion (Acute). Hx of dislocation of shoulder (Acute). Hx of pleural effusion (Acute). Hx of tuberculosis (Acute). MULTIPLE CXR CLEARING PT. Obstructive sleep apnea (Chronic). DOES NOT USE DEVICE. Surgical History (Updated 12/12/19 @ 13:32 by Kong Brown). H/O hand surgery (Inactive). History of thoracentesis (Acute) PREVIOUS FUNCTIONAL STATUS/SOCIAL/FAMILY SUPPORTS:: Sloan lives in [place] with his , Michael. 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 His also works at [employer] as an RN on the birthing center. They have two adult children who live in [place] and are very supportive. Sloan is independent at baseline. CURRENT FUNCTIONAL STATUS:: Sloan was sitting up in his chair when CM met with him. His and children were in the room visiting. He stated that he does not have pain in his hip, but he does in other areas. CM asked if he had discussed that with Dr. Colvin, which he did, and per MD, this is normal pain. Sloan asked CM to assist him and his with making changes to his AD. They both need to change Michael's last name as it has her maiden name listed. CM called the [place] [employer] who stated that they would have to fill out a new AD in order to make the change, which isn't necessary for that one change, as she is the same person. CM offered blank copies of AD, which they will fill out at a later date. Sloan reported that per MD, he may go home this afternoon. CM will continue to follow. ADVANCE DIRECTIVES:: Michael listed as agent. Has patient been provided with information about the portal?: No Did the patient sign up for the portal?: No CODE STATUS:: Full Code INSURANCE COVERAGE / FINANCIAL ISSUES:: Health Plans/ Self Pay/ / W Comp [facility] [employer] [facility] [employer] CURRENT HOME/COMMUNITY SERVICES/EQUIPMENT:: No Equipment or services at this time. PRIMARY CARE PHYSICIAN:: Sonu Espinosa POTENTIAL DISCHARGE NEEDS:: Evaluations for further needs, follow up appointment with Ortho PATIENT/FAMILY EDUCATION NEEDS:: Review discharge instructions regarding activity levels and medications, discussion of self care needs including ask me three ANTICIPATED BARRIERS TO DISCHARGE:: None at this time. TRANSPORTATION:: Sloan will transport home via private vehicle driven by his . PLAN:: Anticipate Sloan will return home with no additional services once medically cleared. CM will coordinate a FWW, as recommended by PT. He will follow up with Ortho in two weeks. He is agreeable to the plan.
[2020-01-01 15:28] VITALS: BP 158/84; PULSE 100; RESP 18; TEMP 37.4; O2SAT 98
--- NOTE | 2020-01-01 16:34 | PHARADMIT ---
Admission Pharmacy Clinical Review OA (L) HIP Code Status Full Code Current Weight Wgt-121.9 kg Renally Cleared and Narrow Therapeutic Index Meds CrCl~65 mL?min Meds-OK QTc Value / Action Taken NONE CURENT BP Control, Fever BP-150/84 Tmax- Electrolytes reviewed Na- 139 K+3.7 DVT Prophylaxis ASA-ec Opiate Usage / Scheduled Bowel Regimen Ordered Yes Yes Plt/SCr for Heparin / Enoxaparin Plts-179 SCr-1.25 INR for Warfarin na H/H stable, WBC/Bands H&H-10.7/32.1 WBC- 10.59 Antibiotic appropriateness Ancef Cultures and Sensitivities none Surgical ABX d/c within 24 hr Yes DM control / Insulin Dosing BG-142 Heart Failure (Check EF%) (RENETTA's, B-Block, Diuretics) na IV to PO Switch No Home Meds Reviewed Yes Home Meds Not Ordered Ibuprofen, Comments
--- NOTE | 2020-01-01 17:02 | W.PM.DS.N ---
Date of service: 01/01/20 Time of Service: 17:02 DS: Diagnosis Discharge Diagnosis (1) Avascular necrosis of bone of left hip: Status: Acute (2) Postoperative anemia due to acute blood loss: Status: Acute Discharge Plan Disposition Patient Disposition: HOME Condition: Improving Discharge Details Reason For Visit: OA (L) HIP Admit Date/Time: 12/31/19 11:52 Admit Provider: Gurjit Colvin Attending Provider: Gurjit Colvin Primary Care Provider: Sonu Espinosa Hospital Course Hospital Course: Patient was admitted to the medical/surgical floor following the procedure. It was tolerated well without any notable medical, surgical, or anesthetic complications. Mobilization began postoperatively. The verdin catheter was removed and voiding spontaneously. Vitals were stable. Physical therapy worked with the patient and was cleared for discharge home. No acute medical issues. Home Meds and New Rx's Prescriptions: New celecoxib 200 mg capsule 200 mg PO BID PRN (Reason: pain) Qty: 60 RF: 1 aspirin 81 mg tablet,delayed release (DR/EC) 81 mg PO BID Qty: 60 RF: 0 acetaminophen 500 mg tablet 1,000 mg PO Q8H PRN (Reason: pain) Qty: 90 RF: 3 pantoprazole 40 mg tablet,delayed release (DR/EC) 40 mg PO DAILY Qty: 30 RF: 0 oxycodone 5 mg tablet 5 mg PO Q4H Qty: 18 RF: 0 Continued multivitamin [Multi-Day] 1 EACH tablet 1 ea PO DAILY RF: 0 cholecalciferol (vitamin D3) 5,000 UNIT tablet 5,000 unit PO DAILY RF: 0 vitamin B complex-folic acid [B Complex 100] 0.4 mg Tablet 1 tab PO DAILY RF: 0 lorazepam 1 mg Tablet 1 mg PO QHS PRNRF: 0 Discontinued acetaminophen-codeine 300-15 mg tablet 1 tab PO BID PRN (Reason: pain) Qty: 14 RF: 0 acetaminophen [Mapap Extra Strength] 500 MG tablet 500 mg PO Q4H PRN PRNRF: 0 ibuprofen 600 MG tablet 600 mg PO Q6H PRN (Reason: Pain) Qty: 20 RF: 0 Discharge Instructions Additional Instructions: Dr. Colvin?s Total Hip Discharge Instructions Activity: The most important activity is to walk. You should try to take short walks a few times a day. You have no restrictions on movement or positioning, but do not try to force what you do. You will find some stiffness and weakness with hip flexion (lifting your knee). Do not try to strengthen this too early, continue to practice walking and stairs and this will come. - Outpatient physical therapy can be helpful to help return you to a normal gait and improve your flexibility and strength. This can start around 2 weeks. For some patients, it?s not necessary. Usually this is determined at the time of discharge or at the first post-operative visit. - You should wear the SCOTT hose on both legs for 2 weeks. Dressing: Keep the surgical dressing in place for at least one week. After the first week it may be removed and replace with light gauze and tape or nothing. It may get wet after 3 days but avoid soaking the dressing. If it gets wet, just lightly pat dry. It is important to always keep some gauze between skin folds, especially when you are sitting. Spend some time with the wound exposed when you are lying flat as the incision does wrinkle onto itself. Medications: - You should take Tylenol and an anti-inflammatory Celebrex as your primary pain control medications - You have been prescribed a stronger pain medication Oxycodone for breakthrough pain, take as needed as prescribed. - You have also been prescribed a stomach acid reduction agent Pantoprozole to help reduce stomach acid and reflux. - You will be taking Aspirin 81mg twice a day for DVT prevention unless instructed otherwise. - If you have constipation you should take Colace or Miralax (both [id number]). It takes most people 3-4 days to have a bowel movement. Follow-up: 2 weeks Referrals: Gurjit Colvin MD [ [facility] STAFF PHYSICIAN] - Activity:: Activity as Tolerated Equipment/Supplies:: Walker Diet:: As Tolerated Discharge Orders Discharge Orders: Discharge Order (Routine); Ordered 01/01/20 Ordered By: Gurjit Colvin DS: Summary Status at Discharge Functional status at discharge: uses cane/walker Overall status at discharge: patient is progressing back to baseline Mental Status: mental status grossly normal Speech and Movement: speech and movement normal Mood: congruent mood Affect: normal affect Exam Psych Mental Status: mental status grossly normal Speech and Movement: speech and movement normal Mood: congruent mood Affect: normal affect DS: Data Vitals/I&O Vitals and I&O: Vital Signs Temperature 37.4 C 01/01/20 15:28 Temperature Source Skin 01/01/20 15:28 Pulse 100 H 01/01/20 15:28 Pulse Rhythm Regular 01/01/20 08:50 Respiratory Rate 18 01/01/20 15:28 Respiratory Effort Non-Labored 01/01/20 08:50 Respiratory Depth Normal 01/01/20 08:50 Respiratory Pattern Normal 01/01/20 08:50 Blood Pressure 158/84 H 01/01/20 15:28 Pulse Oximetry 98 01/01/20 15:28 Respiratory End-tidal CO2 34 12/31/19 19:23 Oxygen Delivery Method Room Air 01/01/20 15:28 Oxygen Flow Rate 0 01/01/20 15:28 Pain Level 3 01/01/20 16:40 Intake & Output 12/31/19 01/01/20 01/01/20 23:59 11:59 23:59 Intake Total 2420 / 2420 710 / 2410 1700 / 2410 Output Total 125 / 125 150 / 275 125 / 275 Balance 2295 / 2295 560 / 2135 1575 / 2135 Weight 121.9 kg Intake: IV 2420 / 2420 100 / 1150 1050 / 1150 Oral 610 / 1260 650 / 1260 Output: Urine 125 / 125 150 / 275 125 / 275 Other: Urine Color Yellow Light Inés Light Inés Urine Appearance Cloudy Clear Clear Urine Odor Strong Strong Strong Comment very cloudy strong smelling urine passed in the urinal. documented from what was written on patients board. documented from what was written on patients board. Voiding Methods Urinal Urinal Data Completed and Pending Labs on day of discharge: Labs from last 24 hours 01/01/20 01/01/20 07:08 07:08 WBC 10.59 D RBC 3.59 L Hgb 10.7 L D Hct 32.1 L D MCV 89.4 MCH 29.8 MCHC 33.3 RDW 13.1 Plt Count 179 MPV 9.9 Sodium 139 Potassium 3.7 Chloride 104 Carbon Dioxide 28.2 Anion Gap 6.8 BUN 18 Creatinine 1.25 Estimated GFR/1.73 m2 58.15 Glucose 142 H Calcium 7.7 L PFSH Social History Smoking/Tobacco Use Status: Never Drug use: Never Substance use type: does not use Do you feel safe in your relationship?: Yes
--- NOTE | 2020-01-01 17:20 | PDOC.CMDIS ---
- If Service Date Differs Date of service: 01/01/20 Time of Service: 17:20 LACE Index Scoring Tool - Questions: Length of Stay (in days): 2 Acuity (Admit via E.D.?): No E.D. Visits: 1 - Answers: Total Score: 3 Risk of Readmission: Low Risk Care Management Discharge Reason for Hospitalization: L Hip Replacement Discharge Plan: Sloan will return home with no additional services at this time. His will drive him home via private vehicle. He will follow up with Ortho in two weeks. CM coordinated a FWW, as recommended by PT. He is agreeable to the plan. Patient/Family Education Needs: Review discharge instructions regarding activity levels and medications, discussion of self care needs including ask me three Services Needed at Discharge: DME Agency (FWW)
--- NOTE | 2020-01-03 09:37 | INDS_ITS ---
Date of service: 01/03/20 Time of Service: 09:37 PT Notes Visit Reasons: OA (L) HIP Date: 01/01/2020 Referring Doctor: Gurjit Colvin M.D. PT Orders: PT CONSULT: s/p ortho surgery; s/p L anterior ROSE Precautions: Fall. Standard. Activity as tolerated. Patient Profile/Admitting Diagnosis: Pt is a 64-year-old male with a history of avascular necrosis and osteoarthritis of the left hip, presenting status post left total hip arthroplasty on post-operative day 0. PMHX: Medical History (Updated 12/12/19 @ 14:12 by Kong Brown) History of asthma (Acute) History of posttraumatic stress disorder (PTSD) (Acute) History of reactive airway disease (Acute) Hx of concussion (Acute) Hx of dislocation of shoulder (Acute) Hx of pleural effusion (Acute) Hx of tuberculosis (Acute) MULTIPLE CXR CLEARING PT. 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 Pt lives at home with , Michael, in [place]. Three stairs to enter the home with a rail on the right. No stairs once in the home. Equipment Owned/DME: cane, front-wheeled walker. Subjective: Pt reports that he is tired and a bit sleepy as he did not sleep well last night. Pt?s notes that he was able to stand at the edge of the bed at 4 A.M and walk to the bathroom. Objective: General Observation: Mepilex dressing over incision. Mental Status: alert and oriented x4 Pain: 4/10 in the L hip ROM: Right Upper Extremity: Shoulder Flexion WFL. Shoulder abduction WFL. Elbow flexion WFL. Wrist flexion WFL. Opening and closing of hand WFL. Left Upper Extremity: Shoulder Flexion WFL. Shoulder abduction WFL. Elbow flexion WFL. Wrist flexion WFL. Opening and closing of hand WFL. Right Lower Extremity: Hip flexion WFL. Hip abduction WFL. Knee flexion WFL. Ankle dorsiflexion WFL. Ankle plantarflexion WFL. Left Lower Extremity: Hip flexion WFL. Hip abduction WFL. Knee flexion WFL. Ankle dorsiflexion WFL. Ankle plantarflexion WFL. Strength: Right Upper Extremity: Shoulder flexors 5/5. Shoulder abductors 5/5. Elbow flexors 5/5. Elbow extensors 5/5. Dry Starch Operator strong. Left Upper Extremity: Shoulder flexors 5/5. Shoulder abductors 5/5. Elbow flexors 5/5. Elbow extensors 5/5. Dry Starch Operator strong. Right Lower Extremity: Hip flexors 5/5. Hip abductors 5/5. Knee flexors 4+/5. Knee extensors 5/5. Ankle dorsiflexors 5/5. Ankle plantarflexors 5/5. Left Lower Extremity: Hip flexors 4/5. Hip abductors 5/5. Knee flexors 4+/5. Knee extensors 5/5. Ankle dorsiflexors 5/5. Ankle plantarflexors 5/5. Sensation: Intact as to pain and pressure on bilateral lower extremities. Bed Mobility/Transfers: Sit to stand supervision Stand to sit supervision Bed to chair supervision Chair to bed supervision Gait: Pt was able to ambulate 175 feet, WBAT on the L LE, using a front-wheeled walker. Step through gait pattern with asymmetrical step length and height. CGA provided by PT student and supervision by the PT with wheelchair follow provided by the pt?s . He reports that the pain in his hip is reduced with walking. No complaints of dizziness, SOB, chest pain. Required cues to maintain a wide base of support. Balance: Static Sitting: Normal Dynamic Sitting: Normal Static Standing: Good Dynamic Standing: Fair Informed Consent/Education: Patient instructed in purpose of PT consult and plan of care. Assessment: Pt is a 64-year-old male with a history of avascular necrosis and osteoarthritis of the left hip, presenting status post left total hip arthroplasty on post-operative day 1. Goals: Goals X1 week 1. Sit-Stand independent MET 2. Stand-Sit independent MET 3. Bed-Chair independent MET 4. Chair-Bed independent MET 5. Independent gait on level surface with use of least restrictive device for at least 300 feet without report of pain nor dyspnea MET 6. Independent stair negotiation while holding onto bilateral rails for at least 4 steps without report of pain nor dyspnea MET 7. Independent with home exercise program NOT MET 8. Good static and dynamic standing balance/tolerance NOT MET DISCHARGE RECOMMENDATIONS: Discharge to home when medically cleared. No equipment recommendations at this time. TREATMENT CODE/TIME: 17622 x 30 minutes. Thank you very much for this referral. Stephanie Edmondson PT, DPT, CLT [facility] [place], [place]
--- NOTE | 2020-01-03 09:50 | INDS_ITS ---
Date of service: 01/03/20 Time of Service: 09:50 PT Notes Visit Reasons: OA (L) HIP Physical Therapy Inpatient Discharge Summary Date: 01/01/2020 Dates of Service: 01/01/2020 This is a clinical summary of care provided on the duration of dates listed above. No charge was made in the completion of this documentation. Patient Profile/Admitting Diagnosis: Pt is a 64-year-old male with a history of avascular necrosis and osteoarthritis of the left hip, presented status post left total hip arthroplasty on post-operative day zero. Objective: General Observation: Mepilex dressing over incision. Mental Status: alert and oriented x4 Pain: 4/10 ROM: Right Upper Extremity: Shoulder Flexion WFL. Shoulder abduction WFL. Elbow flexion WFL. Wrist flexion WFL. Opening and closing of hand WFL. Left Upper Extremity: Shoulder Flexion WFL. Shoulder abduction WFL. Elbow flexion WFL. Wrist flexion WFL. Opening and closing of hand WFL. Right Lower Extremity: Hip flexion WFL. Hip abduction WFL. Knee flexion WFL. Ankle dorsiflexion WFL. Ankle plantarflexion WFL. Left Lower Extremity: Hip flexion WFL. Hip abduction WFL. Knee flexion WFL. Ankle dorsiflexion WFL. Ankle plantarflexion WFL. Strength: Right Upper Extremity: Shoulder flexors 5/5. Shoulder abductors 5/5. Elbow flexors 5/5. Elbow extensors 5/5. Refuge Manager strong. Left Upper Extremity: Shoulder flexors 5/5. Shoulder abductors 5/5. Elbow flexors 5/5. Elbow extensors 5/5. Refuge Manager strong. Right Lower Extremity: Hip flexors 5/5. Hip abductors 5/5. Knee flexors 4+/5. Knee extensors 5/5. Ankle dorsiflexors 5/5. Ankle plantarflexors 5/5. Left Lower Extremity: Hip flexors 4/5. Hip abductors 5/5. Knee flexors 4+/5. Knee extensors 5/5. Ankle dorsiflexors 5/5. Ankle plantarflexors 5/5. Sensation: Intact as to pain and pressure on bilateral lower extremities. Bed Mobility/Transfers: Rolling NT Supine to sit NT Sit to supine NT Sit to stand supervision Stand to sit supervision Bed to chair supervision Chair to bed supervision Gait: Pt was able to ambulate 100 feet x 2, WBAT on the L LE, using a front- wheeled walker. Step through gait pattern with asymmetrical step length and height. SBA provided by SUPERVISOR [employer]ING [employer]. Attempted use of bilateral axillary crutches, cecil camara, pt was not stable. Stairs: Pt was able to ascend and descend the 4-inch steps x 2 and 6-inch steps x 3 with bilateral upper extremity support on rails. SBA provided by SUPERVISOR [employer]ING [employer]. Balance: Static Sitting: Normal Dynamic Sitting: Normal Static Standing: Good Dynamic Standing: Fair Assessment: Pt is a 64-year-old male with a history of avascular necrosis and osteoarthritis of the left hip, presenting status post left total hip arthroplasty on post-operative day zero. He presented to physical therapy with impairment level findings and functional limitations as listed below. Pt demonstrate improvements in ambulation with decreased dependence by physical therapy and was able to tolerate negotiation of stairs without complaints of increased pain. He no longer requires skilled physical therapy at this time. Patient presented with clinical signs and symptoms consistent with current/admitting diagnoses that have resulted to mobility limitations, gait instability, and generalized weakness as demonstrated by the following impairment level findings: 1. Decreased strength to B knee flexor muscle groups and L hip flexors. 2. Impaired sitting/standing balance 3. Impaired activity tolerance 4. Limitation of joint range of motion in left hip Impairments continue to contribute to the following functional limitations: 1. Increased dependence with transfers 2. Inability to safely ambulate without assistive device and physical assistance 3. Increase completion time for mobility ADL performance 4. Increased fall risk 5. Inability to negotiate steps alone safely Patient is assessed as a [id number] moderate complexity based on the following: History: He presents to physical therapy with impairment level findings and functional limitations as listed above. AM-PAC raw score of 22 with 21% deficit. Examination: Demonstrable impairment in strength, balance, and range of motion with underlying impairments and functional limitations as documented above Presentation: Evolving Decision Makin moderate complexity Goals: Goals X1 week 1. Sit-Stand independent -NOT MET 2. Stand-Sit independent -NOT MET 3. Bed-Chair independent -NOT MET 4. Chair-Bed independent -NOT MET 5. Independent gait on level surface with use of least restrictive device for at least 300 feet without report of pain nor dyspnea -NOT MET 6. Independent stair negotiation while holding onto bilateral rails for at least 4 steps without report of pain nor dyspnea -MET 7. Independent with home exercise program -NOT MET 8. Good static and dynamic standing balance/tolerance -NOT MET DISCHARGE RECOMMENDATIONS: Discharge to home when medically cleared. No equipment recommendations at this time. Thank you very much for this referral. David Davila, SPT Doctor of Physical Therapy Student [facility] Supervision provided by Stephanie Edmondson PT, DPT, CLT [facility] [place], [place]
== END 2020-01-01 17:55 | disposition home or self-care (01) | DRG 470 ==
LOC: PDS 11:52 → MS 01-01 09:03
PROVIDERS: Admitting Provider Student in an Organized Health Care Education/Training Program; PCP Internal Medicine; Visit Provider Student in an Organized Health Care Education/Training Program
PROC: 0SRB04A Replacement of Left Hip Joint with Ceramic on Polyethylene Synthetic Substitute, Uncemented, Open Approach (ICD-10-PCS; CPT 27130; principal; 2019-12-31 15:30)
DX: M87.052 Idiopathic aseptic necrosis of left femur (principal); D62 Acute posthemorrhagic anemia; M25.552 Pain in left hip; Z96.642 Presence of left artificial hip joint; Y83.1 Surgical operation with implant of artificial internal device as the cause of abnormal reaction of the patient, or of later complication, without mention of misadventure at the time of the procedure; Q65.89 Other specified congenital deformities of hip; G47.33 Obstructive sleep apnea (adult) (pediatric)
CPT/HCPCS: 27130; 36415; 80048; 85027; 86850; 86900; 86901; 97162; 97530; NC; 73501; J0690; J1885; J2250; J2405; J3010

== ENCOUNTER 2020-01-16 11:10 | Outpatient (CLI) | payer OTHER, SELFPAY ==
--- NOTE | 2020-01-16 11:00 | DI.RAD_ITS ---
EXAM: XR HIP LT COMPLETE AP PELVIS INDICATION: 1ST POST OP. COMPARISON: XR HIP LT IN OR from 12/31/2019 TECHNIQUE: 2D digital imaging was performed. FINDINGS: There are stable postsurgical changes of a left total hip replacement. No evidence of hardware failu re is seen. The bones are intact. The soft tissues are unremarkable. IMPRESSION: Stable left THR. DATA REPOSITORY: RADIATION DOSE DELIVERED:
== END 2020-01-16 11:30 ==
PROVIDERS: PCP Internal Medicine; Visit Provider Student in an Organized Health Care Education/Training Program
DX: Z96.642 Presence of left artificial hip joint (principal); Z47.1 Aftercare following joint replacement surgery
CPT/HCPCS: 73502

== ENCOUNTER 2020-02-10 10:58 | Outpatient (CLI) | payer OTHER, SELFPAY ==
--- NOTE | 2020-02-10 10:30 | DI.RAD_ITS ---
EXAM: XR HIP LT AP LAT ONLY CLINICAL HISTORY: eval L ROSE, new pain TECHNIQUE: COMPARISON: XR HIP LT COMPLETE AP PELVIS from 01/16/2020 FINDINGS: Two views were obtained and show total hip joint replacement in position. The components appear well seated. No other significant bony abnormality seen. IMPRESSION:
== END 2020-02-10 11:18 ==
PROVIDERS: PCP Internal Medicine; Visit Provider Student in an Organized Health Care Education/Training Program
DX: Z96.642 Presence of left artificial hip joint (principal); Z47.1 Aftercare following joint replacement surgery; M87.052 Idiopathic aseptic necrosis of left femur
CPT/HCPCS: 73502

== ENCOUNTER 2020-03-17 10:23 | Outpatient (REF) | payer OTHER, SELFPAY ==
[2020-03-17 21:37] LABS: Anion Gap 6.8 mmol/L (3-11); BUN 12 mg/dL (7-18); CO2 29.2 mmol/L (21.0-32.0); Calcium 8.9 mg/dL (8.5-10.1); Chloride 105 mmol/L (98-107); Glucose 100 mg/dL (74-106); Sodium 141 mmol/L (136-145)
[2020-03-17 22:14] LABS: Hemoglobin A1C 5.8 % (3.8-5.6)
[2020-03-19 05:35] LABS: Vitamin D 25 Total 23.8 ng/ml (30-100)
[2020-03-20 11:26] LABS: Varicella IgG Antibody Positive (See Note)
[2020-03-20 12:38] LABS: HSV Type 1 Ab, IgG Negative (Negative); HSV Type 2 Ab, IgG Positive (Negative)
== END 2020-03-17 10:43 ==
LOC: NCHCN 10:23
PROVIDERS: PCP Internal Medicine; Visit Provider Internal Medicine
DX: R21 Rash and other nonspecific skin eruption (principal); E55.9 Vitamin D deficiency, unspecified; R03.0 Elevated blood-pressure reading, without diagnosis of hypertension; Z11.59 Encounter for screening for other viral diseases
CPT/HCPCS: 80048; 82306; 86787; 87798; 83036; 86695; 86696

== ENCOUNTER 2020-03-24 12:33 | Outpatient (REF) | payer OTHER, SELFPAY ==
[2020-03-26 14:00] LABS: HSV 1 DNA Result Negative (Negative); HSV 2 DNA Result Positive (Negative)
== END 2020-03-24 12:53 ==
LOC: NCHCN 12:33
PROVIDERS: PCP Internal Medicine; Visit Provider Internal Medicine
DX: Z11.8 Encounter for screening for other infectious and parasitic diseases (principal)
CPT/HCPCS: 87529

== ENCOUNTER 2020-08-28 13:43 | Outpatient (REF) | payer OTHER, SELFPAY ==
[2020-09-01 15:18] LABS: Patient Race White; SARS-CoV-2 RNA Undetected (Undetected); SARS-CoV-2 Specimen Source Nasal
== END 2020-08-28 14:03 ==
LOC: NCHCN 13:43
PROVIDERS: PCP Internal Medicine; Visit Provider Internal Medicine
DX: Z20.828 Contact with and (suspected) exposure to other viral communicable diseases (principal)
CPT/HCPCS: U0003

== ENCOUNTER 2020-08-31 09:01 | Day surgery (SDC) | payer OTHER, SELFPAY ==
--- NOTE | 2020-08-31 06:47 | COLE_ITS ---
Date of service: 08/31/20 Time of Service: 10: Colonoscopy Report Date of procedure: 08/31/20 Pre-op diagnosis general: Colon Cancer Screening Post-op diagnosis procedure note: other (ectal polyps and ascending colon polyp) Procedure: Colonoscopy with polypectomy Surgeon: Debby Sales Anesthesia proc note operative: other (General/ASA 2/Xiomara Hoffmann, IBIS) Estimated blood loss (mL): 2 Pathology: other (Ascending polyps and rectal polyp) Complications: None Disposition: same day Indications: The patient is here for Colonoscopy pre-op. His last screening was 10 years ago at the [place] and was unremarkable. He has no family history of colon cancer. He has not had any bowel habit changes. -Discussed colonoscopy bowel prep as well as the procedure. Discussed possible complications of the procedure to include bleeding, pain, perforation, missed small lesion/polyp, sore throat, aspiration and adverse reaction to the medications. Questions were answered to patient?s satisfaction. No guarantees were implied or given. He expressed concern regarding being combative in the past following surgical procedures and waking from anesthesia. Will discuss with anesthesia that the patient would like to have his significant other with him upon waking from sedation. Prep: Miralax/Dulcolax Procedure Start Time: 10:20 Procedure End Time: 10:46 Retraction Time: 20 minutes Findings: 2 small polyps Procedure Description: After informed consent was obtained the patient was taken to the procedure room and placed in a left decubitous position. Monitors were applied and a time out was done. The patients name, date of , proced ure, allergies to medications and metal in their body was reviewed. The patient was then sedated. Once sedated and comfortable a rectal exam was done. External exam was normal. Internal exam revealed a normal sphincter tone and no palpable masses. I was unable to feel his prostate The scope was then introduced and retro-flexed. No internal hemorrhoids were identified. The scope was then advanced to the cecum without difficulty. The ileocecal valve and appendiceal orifice were identified. The prep was good. The scope was then slowly retracted over 20 minutes back into the rectum. Dev yps were removed with cold forceps in the ascending colon and rectum. The scope was removed and the patient was woken up and taken back to Same day surgery in stable condition. The patient tolerated the procedure well and there were no immediate complications. Follow up: Depends on final pathology
--- NOTE | 2020-08-31 06:48 | W.PM.DSUDISC ---
Discharge Plan Disposition Patient Disposition: HOME Condition: Good Discharge Details Reason For Visit: Colonoscopy Attending Provider: Debby Sales Primary Care Provider: Sonu Espinosa Home Meds and New Rx's Prescriptions: Continued albuterol sulfate 90 mcg/actuation HFA aerosol inhaler 2 puff inhalation Q6H PRNRF: 0 multivitamin [Multi-Day] 1 EACH tablet 1 ea PO DAILY RF: 0 cholecalciferol (vitamin D3) 5,000 UNIT tablet 5,000 unit PO DAILY RF: 0 vitamin B complex-folic acid [B Complex 100] 0.4 mg Tablet 1 tab PO DAILY RF: 0 acetaminophen 500 mg tablet 1,000 mg PO Q8H PRN (Reason: pain) Qty: 90 RF: 3 Discharge Instructions Additional Instructions: Findings: 2 small polyps Follow up: depends on final pathology results. Please call if you develop: fevers >101.5 Nausea or Vomiting Abdominal pain that is not transient DAY SURGERY UNIT POST ENDOSCOPY INSTRUCTIONS 1. Because there will be medication in your system for the next 24 hours, you may feel a little sleepy. Your coordination will be affected. Therefore: a. Do not drive or operate dangerous equipment for 24 hours. b. Do not drink alcohol beverages for 24 hours (not even beer). c. Plan to go home and rest for the day. 2. Generally there are no restrictions on your activity after a day or so has gone by, but you may feel a bit fatigued for a few days. 3 After you arrive home you may have a light meal and return to a normal diet as you can tolerate it without feeling sick to your stomach. 4. After surgery, you may feel pain or discomfort. This should be only transient, but if it persists please contact your doctor. 5. If there are any questions regarding the findings of your procedure, please feel free to contact your doctor. 6. If you are unable to contact your doctor with a problem, contact the hospital at [phone]. 7. Continue all your regular medications unless directed otherwise. I understand the above instructions and have no questions. Signature of Patient or Responsible Adult Escort Date/Time Name of Responsible Adult Escort Signature of Nurse Date/Time Activity:: Activity as Tolerated Diet:: As Tolerated Discharge Orders Discharge Orders: Discharge Order (Routine); Ordered 08/31/20 Ordered By: Debby Sales
[2020-08-31 09:10] VITALS: BP 150/92; PULSE 79; RESP 18; TEMP 36.6; O2SAT 99
[2020-08-31] MEDS: Lactated Ringers 1,000 ML 80 ML IV (09:34)
--- NOTE | 2020-08-31 10:21 | BOWEL_PTH ---
PATIENT: Sloan Syed LOC: [facility] U#:[id number] AGE/SX: 64/M ROOM: RE08/31/[address]: Debby Sales MD : [id number] BED: DIS: 08/31/2020 SPEC #: [id number] RECD: 08/31/20 12:48 STATUS: [facility] REQ #: [id number] JERRICA: 08/31/20 10:[address]: Debby Sales DEPT: Surgical Specimen RECD BY: Julissa Lora ENTERED: 08/31/20 12:48 SP TYPE: Bowel OTHR DR: Sonu Espinosa Tissues: 1 - BIOPSY BOWEL 2 - BIOPSY BOWEL Procedures: GROSS AND MICRO LEVEL 4 Comments: [id number]
[2020-08-31 10:45] VITALS: BP 125/74; PULSE 68; RESP 18; TEMP 36.5; O2SAT 100
[2020-08-31 10:50] VITALS: BP 120/76; PULSE 68; RESP 18; TEMP 36.5; O2SAT 100
[2020-08-31 10:55] VITALS: BP 127/78; PULSE 66; RESP 14; TEMP 36.5; O2SAT 100
[2020-08-31 11:10] VITALS: BP 127/73; PULSE 67; RESP 15; TEMP 36.6; O2SAT 98
[2020-08-31 11:35] VITALS: BP 116/73; PULSE 62; RESP 16; TEMP 36.3; O2SAT 96
== END 2020-08-31 12:15 | disposition home or self-care (01) ==
PROVIDERS: PCP Internal Medicine; Visit Provider Surgery
PROC: 0DJD8ZZ Inspection of Lower Intestinal Tract, Via Natural or Artificial Opening Endoscopic (ICD-10-PCS; CPT 45378; principal; 2020-08-31 10:00)
DX: Z12.11 Encounter for screening for malignant neoplasm of colon (principal); D12.2 Benign neoplasm of ascending colon; D12.8 Benign neoplasm of rectum
CPT/HCPCS: 45380; 88305; J2704

== ENCOUNTER 2020-11-04 11:22 | Outpatient (REF) | payer OTHER, SELFPAY ==
[2020-11-06 00:03] LABS: COVID-19 RT-PCR UVMMC Result Negative (Negative)
== END 2020-11-04 11:42 ==
LOC: NCHCN 11:22
PROVIDERS: PCP Internal Medicine; Visit Provider Internal Medicine
DX: Z11.59 Encounter for screening for other viral diseases (principal)
CPT/HCPCS: U0003

== ENCOUNTER 2020-12-10 15:44 | Outpatient (REF) | payer OTHER, SELFPAY ==
[2020-12-10 20:25] LABS: COVID-19 RT-PCR UVMMC Result Negative (Negative)
== END 2020-12-10 16:04 ==
LOC: NCHCN 15:44
PROVIDERS: PCP Internal Medicine; Visit Provider Internal Medicine
DX: Z20.822 Contact with and (suspected) exposure to COVID-19 (principal)
CPT/HCPCS: U0003

== ENCOUNTER 2021-02-12 09:35 | Outpatient (CLI) | payer OTHER, SELFPAY ==
--- NOTE | 2021-02-12 09:30 | DI.RAD_ITS ---
EXAM: XR HIP LT AP LAT ONLY CLINICAL HISTORY: ANNUAL F/U L ROSE TECHNIQUE: COMPARISON: CR XR HIP LT AP LAT ONLY from 02/10/2020 FINDINGS: Two views were obtained. There is a total hip joint replacement in position. The components appear well seated. No other significant bony abnormality seen. IMPRESSION: RADIATION DOSE DELIVERED: Total DLP
== END 2021-02-12 09:36 | disposition home or self-care (01) ==
LOC: DIORS 09:36
PROVIDERS: PCP Internal Medicine; Referring Provider Internal Medicine; Visit Provider Student in an Organized Health Care Education/Training Program
DX: Z96.642 Presence of left artificial hip joint (principal)
CPT/HCPCS: 73502

== ENCOUNTER 2021-06-22 03:29 | Outpatient (CLI) | payer OTHER, SELFPAY ==
[2021-06-22 09:12] LABS: HCT 43.7 % (40.0-50.0); HGB 14.8 g/dL (13.5-17.5); MCH 29.5 pg (27.0-33.0); MCHC 33.9 % (32.0-36.0); MCV 87.2 fL (80-95); MPV 9.4 fL (8.0-11.0); Platelet Count 192 10^3/uL (130-400); RBC 5.01 10^6/uL (4.36-5.78); RDW 12.8 % (11.8-14.1); RDW-SD 40.5 fL; WBC 8.24 10^3/uL (4.4-10.8)
[2021-06-22 09:50] LABS: Anion Gap 9.4 mmol/L (3-11); BUN 14 mg/dL (7-18); CO2 27.6 mmol/L (21.0-32.0); CREATININE 1.2 mg/dL (0.70-1.30); Calcium 9.1 mg/dL (8.5-10.1); Chloride 107 mmol/L (98-107); Glucose 115 mg/dL (74-106); Potassium 3.9 mmol/L (3.5-5.1); Sodium 144 mmol/L (136-145)
[2021-06-24 01:26] LABS: Vitamin D 25 Total 22.1 ng/mL (30-100)
== END 2021-06-22 03:30 | disposition home or self-care (01) ==
PROVIDERS: PCP Internal Medicine; Visit Provider Internal Medicine
DX: E55.9 Vitamin D deficiency, unspecified (principal); R73.03 Prediabetes; R03.0 Elevated blood-pressure reading, without diagnosis of hypertension; R53.83 Other fatigue
CPT/HCPCS: 36415; 80048; 82306; 85027; 83036

== ENCOUNTER 2021-10-19 17:28 | Observation (INO) | payer OTHER, SELFPAY ==
[2021-10-19] VITALS (55 sets, daily range): BP systolic 139–181; BP diastolic 83–102; PULSE 57–75; RESP 12–23; TEMP 36.5; O2SAT 94–100
--- NOTE | 2021-10-19 17:30 | RT.EKG_ITS ---
APPROVED REPORT Exam: Resting ECG Reason for Exam: chest pain Patient Location: E HR:72 bpm ECG Measurements Heart Rate 72 AXIS AL 219 P 7 QRSd 105 QRS 93 QT 382 T -8 QTc 419 Conclusion Sinus rhythm...normal P axis, V-rate 60- 99 Inferior Q>35mS, T neg, II III aVF, previously noted 07/2018
--- NOTE | 2021-10-19 17:45 | DI.RAD_ITS ---
Exam(s) XR PORTABLE CHEST AP EXAM: XR PORTABLE CHEST AP CLINICAL HISTORY: chest pain TECHNIQUE: 2D digital imaging was performed of the chest. One image was obtained. An AP view was ob tained. COMPARISON: CR CHEST 2 VIEWS PA,LAT from 02/05/2018 FINDINGS: MEDIASTINUM: Normal. HEART: Normal. PULMONARY VASCULATURE: Normal. LUNGS: Clear. PLEURAL SPACE: No pleural effusion or pneumothorax. BONE:Within normal limits for the patient's age. OTHER FINDINGS:Normal. IMPRESSION: No acute pulmonary findings. DATA REPOSITORY: RADIATION DOSE DELIVERED:
[2021-10-19 17:57] LABS: Abs Immature Grans 0.03 10^3/uL (0.0-0.06); Absolute Basophil Count 0.03 10^3/uL (0.0-0.2); Absolute Eosinophil Count 0.18 10^3/uL (0.0-0.7); Absolute Lymphocyte Count 2.37 10^3/uL (1.2-3.4); Absolute Monocyte Count 0.73 10^3/uL (0.1-0.8); Absolute Neutrophil Count 4.13 10^3/uL (1.2-6.7); Basophils % 0.4; Eosinophils % 2.4; HCT 45.2 % (40.0-50.0); HGB 14.8 g/dL (13.5-17.5); Immature Grans % 0.4; Lymphocytes % 31.7; MCH 29.5 pg (27.0-33.0); MCHC 32.7 % (32.0-36.0); MCV 90.2 fL (80-95); MPV 9.8 fL (8.0-11.0); Monocytes % 9.8; Neutrophils % 55.3; Nucleated RBC 0 %; Platelet Count 196 10^3/uL (130-400); RBC 5.01 10^6/uL (4.36-5.78); RDW 12.7 % (11.8-14.1); WBC 7.47 10^3/uL (4.4-10.8)
[2021-10-19 18:13] LABS: ALT 12 U/L (16-63); AST 22 U/L (15-37); Albumin 4.3 g/dL (3.4-5.0); Alkaline Phosphatase 63 U/L (46-116); Anion Gap 7.8 mmol/L (3-11); BUN 20 mg/dL (7-18); Bilirubin, Total 0.4 mg/dL (0.2-1.0); CO2 29.2 mmol/L (21.0-32.0); CREATININE 1.1 mg/dL (0.70-1.30); Calcium 8.9 mg/dL (8.5-10.1); Chloride 108 mmol/L (98-107); Glucose 105 mg/dL (74-106); Magnesium 2.1 mg/dL (1.8-2.4); Potassium 3.5 mmol/L (3.5-5.1); Sodium 145 mmol/L (136-145); Total Protein 7.4 g/dL (6.4-8.2); Troponin I < 0.05 ng/mL (<0.06)
--- NOTE | 2021-10-19 18:48 | ED.GENADUL_ITS ---
Discharge Plan Disposition Patient Disposition: [facility] INPATIENT Condition: Serious Discharge Details Clinical Impression: Chest pain, atypical Admit Date/Time: 10/19/21 21:48 Admit Provider: Sergio Smith Attending Provider: Sergio Smith Primary Care Provider: Sonu Espinosa ED Provider: Julissa Guajardo Discharge Data Discharge Date/Time-TO BE ENTERED AT DEPARTURE: 10/19/21 23:10 Medical Decision Making Patient have a heart score of 5, while my suspicion that this presentation is that of atypical chest pain, patient is of moderate risk and would benefit from overnight observation Given a dose of aspirin 324 and nitroglycerin, had some mild improvement with 1 sublingual nitro Without tachypnea or tachycardia or pleuritic pain, clinically low suspicion for pulmonary embolism Agreeable to admission to the hospital at this time for rule out exam, Chest x-ray without acute abnormality, troponin negative x2 EKG with Q waves inferiorly without any acute ischemia or injury noted Case was discussed with admitting hospitalist, Dr. Smith who is willing to admit HPI General Mode of arrival: ambulatory . Date/Time Provider Initiated Documentation: 10/19/21 17:45 . Limitations to Documentation: no limitations . Information obtained by: patient . HPI Narrative: This 66-year-old male presents with report of chest pain since Monday of this week. He states is intermittent and described as a sharp stabbing pain. He states initially it lasted several seconds but today 5 to 10 minutes which concerned him. He denies exacerbating or alleviating factors. He denies any history of known hypertension or hyperlipidemia. He states his blood pressure has been high today which concerned him. He denies any nausea or diaphoresis associated. He denies prior history of similar symptoms in the past. Denies any pleuritic pain or calf tenderness or swelling. Related Data Home Medications Medication Instructions Recorded Confirmed cholecalciferol (vitamin D3) 5,000 unit PO DAILY 03/30/13 10/19/21 multivitamin [Multi-Day] 1 ea PO DAILY 03/30/13 10/19/21 vitamin B complex-folic acid [B 1 tab PO DAILY 12/12/19 10/19/21 Complex 100] acetaminophen 1,000 mg PO Q8H PRN #90 tab 01/01/20 10/19/21 albuterol sulfate 90 mcg/actuation 2 puff INHALATION Q6H PRN 08/21/20 10/19/21 aerosol inhaler Previous Rx's Medication Instructions Recorded acetaminophen 1,000 mg PO Q8H PRN #90 tab 01/01/20 Allergies Allergy/AdvReac Type Severity Reaction Status Date / Time Latex, Natural Rubber Allergy Mild Itching Unverified 10/19/21 17:39 zolpidem [From Ambien] AdvReac Severe Psychosis Verified 10/19/21 17:39 loratadine [From Claritin] AdvReac Intermediate COUGH Unverified 10/19/21 17:39 mirtazapine AdvReac Intermediate Other (See Unverified 10/19/21 17:39 Comment) General Stated Complaint: Chest Pain CASTRO: 2 Review of Systems All systems reviewed & are unremarkable except as noted in HPI and below PFSH Active Problem List (Updated 10/20/21 @ 09:25 by CODI Montoya) Chest pain, atypical (Acute) Trochanteric bursitis, left hip (Acute) History of total left hip arthroplasty (Acute 12/31/19) Tubular adenoma of colon (Acute) Avascular necrosis of bone of left hip (Acute) Postoperative anemia due to acute blood loss (Acute) Medical History (Updated 10/20/21 @ 09:25 by CODI Montoya) Detached retina History of asthma History of posttraumatic stress disorder (PTSD) History of reactive airway disease Hx of concussion Hx of dislocation of shoulder Hx of pleural effusion Hx of tuberculosis MULTIPLE CXR CLEARING PT. Obstructive sleep apnea DOES NOT USE DEVICE Surgical History (Updated 02/12/21 @ 10:27 by CODI Leach) H/O hand surgery History of hip replacement History of thoracentesis Social History Smoking/Tobacco Use Status: Never Smoking risk assessment performed?: Yes Alcohol Intake: current Alcohol Intake frequency: a few times a month Drug use: Never Substance use type: does not use Do you feel safe at home: Yes Do you feel safe in your relationship?: Yes Exam Const General: cooperative, comfortable and no acute distress Eyes Pupils: PERRL Chest Chest: normal inspection of the chest Resp Effort & Inspection: normal respiratory effort Auscultation: clear to auscultation bilaterally Cardio Rate: regular rate Rhythm: regular rhythm Other: Murmur noted GI Other: Nontender abdominal exam Skin General skin exam: no rashes or lesions noted Neuro General: patient alert and patient oriented x3 Extrem Other: 1+ edema to bilateral lower extremities Course Vital Signs Vital signs: Vital Signs Pulse 75 10/19/21 17:35 Respiratory Rate 14 10/19/21 17:35 Blood Pressure 178/94 H 10/19/21 17:35 Pulse Oximetry 99 10/19/21 17:35 Pulse 75 10/19/21 17:35 Respiratory Rate 14 10/19/21 17:35 Respiratory Effort Non-Labored 10/19/21 17:41 Respiratory Depth Normal 10/19/21 17:41 Respiratory Pattern Normal 10/19/21 17:41 Blood Pressure 178/94 H 10/19/21 17:35 Blood Pressure Position Supine 10/19/21 17:35 Pulse Oximetry 99 10/19/21 17:35 Oxygen Delivery Method Room Air 10/19/21 17:35 Oxygen Flow Rate 0 10/19/21 17:35 Pain Level 4 10/19/21 17:41 Lab/Test Results Lab/Test Results: Laboratory Tests Range/Units 10/19/21 10/19/21 17:40 17:40 WBC (4.4-10.8) 10^3/uL 7.47 RBC (4.36-5.78) 10^6/uL 5.01 Hgb (13.5-17.5) g/dL 14.8 Hct (40.0-50.0) % 45.2 MCV (80-95) fL 90.2 MCH (27.0-33.0) pg 29.5 MCHC (32.0-36.0) % 32.7 RDW (11.8-14.1) % 12.7 Plt Count (130-400) 10^3/uL 196 MPV (8.0-11.0) fL 9.8 Immature Gran % 0.4 Neutrophils % 55.3 Lymphocytes % 31.7 Monocytes % 9.8 Eosinophils % 2.4 Basophils % 0.4 Nucleated RBC % % 0 Absolute Neutrophils (1.2-6.7) 10^3/uL 4.13 Absolute Lymphocytes (1.2-3.4) 10^3/uL 2.37 Absolute Monocytes (0.1-0.8) 10^3/uL 0.73 Absolute Eosinophils (0.0-0.7) 10^3/uL 0.18 Absolute Basophils (0.0-0.2) 10^3/uL 0.03 Sodium (136-145) mmol/L 145 Potassium (3.5-5.1) mmol/L 3.5 Chloride (98-107) mmol/L 108 H Carbon Dioxide (21.0-32.0) mmol/L 29.2 Anion Gap (3-11) mmol/L 7.8 BUN (7-18) mg/dL 20 H Creatinine (0.70-1.30) mg/dL 1.1 Estimated GFR/1.73 m2 (mL/min/1.73m2) >= 60.00 Glucose (74-106) mg/dL 105 Calcium (8.5-10.1) mg/dL 8.9 Magnesium (1.8-2.4) mg/dL 2.1 Total Bilirubin (0.2-1.0) mg/dL 0.4 AST (15-37) U/L 22 ALT (16-63) U/L 12 L Alkaline Phosphatase (46-116) U/L 63 Troponin I (<0.06) ng/mL < 0.05 Total Protein (6.4-8.2) g/dL 7.4 Albumin (3.4-5.0) g/dL 4.3 PAWSS Have you Been Recently Intoxicated or Drunk Within the Last 30 days?: No Have you Ever Experienced Previous Episodes of Alcohol Withdrawal?: No Have you ever Experienced Withdrawal Seizures?: No Have you ever Experienced Delirium Tremens(DT)s?: No Have you ever undergone Alcohol Rehabilitation Treatment (i.e, inpt ot outpatient treatment programs)?: No Have you ever Experienced Blackouts?: No Have you ever Combined Alcohol with other Downers within the last 90 days?: No Have you ever Combined Alcohol with any other Substance of Abuse during the last 90 days?: No Positive Blood Alcohol level on Presentation? [PCS.BAL]: No Evidence of Increased Autonomic Activity (i.e. HR>120, tremor, sweating, agitation, nausea)?: No Result: 0
--- NOTE | 2021-10-19 19:17 | DI.VRAD_ITS ---
PROCEDURE INFORMATION: Exam: XR Chest Exam date and time: 10/19/2021 5:52 PM Age: 66 years old Clinical indication: Left-sided; Patient HX: Chest pain , left side, mid clavicular TECHNIQUE: Imaging protocol: XR of the chest. Views: 1 view. COMPARISON: CR CHEST 2 VIEWS PA,LAT 02/05/2018 1:18 PM FINDINGS: Lungs: No consolidation. Pleural spaces: No pleural effusion. No pneumothorax. Heart/Mediastinum: No cardiomegaly. Bones/joints: Unremarkable. IMPRESSION: No acute findings. Dictated and Authenticated by: Judy Sutton MD. Ordering:ARNALDO Costa MD
--- NOTE | 2021-10-19 20:30 | RT.EKG_ITS ---
APPROVED REPORT Exam: Resting ECG Reason for Exam: Chest Pain Patient Location: E HR:61 bpm ECG Measurements Heart Rate 61 AXIS AR 227 P 37 QRSd 105 QRS 79 QT 403 T 0 QTc 406 Conclusion Sinus rhythm...normal P axis, V-rate 60- 99 Prolonged AR interval...AR >220, V-rate 50- 90 Physician: no stemi, unchanged from EKG earlier today and also unchanged from EKG on 07/16/2018
[2021-10-19] MEDS: Aspirin 81 MG CHEW 324 MG CH (20:36)
[2021-10-19 20:54] LABS: Troponin I < 0.05 ng/mL (<0.06)
--- NOTE | 2021-10-19 21:34 | NUR.NOTE ---
Patient given 1 nitro with positive relief.Nursing Note:
[2021-10-19 21:59] LABS: Source Nasal/Nares
[2021-10-19 22:52] LABS: COVID-19 PCR Negative (Negative)
--- NOTE | 2021-10-19 23:11 | W.PM.HP.N ---
Date of service: 10/19/21 Time of Service: 23:11 Assessment and Plan Assessment and plan (1) Chest pain, atypical: Status: Acute Assessment and plan: His chest pain is atypical for coronary artery disease. He will be admitted and we will see if we get a treadmill test tomorrow. I have also ordered an echocardiogram and repeat troponin and repeat electrocardiogram. I did talk to him about coronavirus vaccines and their effectiveness. We did discuss the low risk of getting serious side effect from the vaccine. History of Present Illness History of Present Illness Chief Complaint: chest pain Narrative: This 66-year-old male is here because of left-sided chest pain. This has been present over the last week or so. Is not been associated with any activity but can come on at rest or with driving his car. Sometimes he can push on left side of his chest under his breast and it can make the pain get worse. The pain sometimes pleuritic. He has never had a before this last week. He felt as though it was much worse today although the intensity without more than 2 out of 10 but came to the hospital to be checked. It is located in a fairly small area of the left chest. There is no radiation. There is no jaw or neck pain. He has not had any pain when he walks up a hill from his neighbors house. There is been no nausea or vomiting, dyspnea or diaphoresis. There is no history of heart disease or hypertension or hyperlipidemia. He does not use tobacco or alcohol except for occasional glass of wine with his . His father had atrial fibrillation and carotid artery disease but no coronary artery disease that he is aware of. He presented here to the emergency department has had 2 - troponin tests and did have some recurrent pain that did seem to get better with nitroglycerin. The patient does not use any medicine except occasional albuterol which is necessitated because of cold air exposure causing some wheezing. 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 He has not gotten coronavirus vaccine because he is concerned about misinformation about the effectiveness of the vaccine and the risks of side effects from the vaccine. Review of Systems Constitutional Constitutional: Denies chills and Denies fever(s) Cardiovascular Cardiovascular: Reports chest pain, Reports chest pain at rest, Denies chest pain with activity, Denies diaphoresis, Denies irregular heart rhythm, Denies leg edema, Denies palpitations and Denies dyspnea Respiratory Respiratory: Denies chest congestion, Denies cough, Denies dyspnea and Reports wheezing Gastrointestinal Gastrointestinal: Denies loose stools, Denies nausea and Denies vomiting Genitourinary Genitourinary: Denies difficulty urinating Musculoskeletal Musculoskeletal: Reports system reviewed and no additional complaints, except as documented Endocrine Endocrine: Denies palpitations Allergic/Immunologic Allergic/Immunologic: Reports wheezing [facility] Active Problem List (Updated 10/19/21 @ 23:19 by Sergio Smith MD) Chest pain, atypical (Acute) Trochanteric bursitis, left hip (Acute) History of total left hip arthroplasty (Acute 12/31/19) Tubular adenoma of colon (Acute) Avascular necrosis of bone of left hip (Acute) Postoperative anemia due to acute blood loss (Acute) Medical History (Updated 10/19/21 @ 23:19 by Sergio Smith MD) Detached retina History of asthma History of posttraumatic stress disorder (PTSD) History of reactive airway disease Hx of concussion Hx of dislocation of shoulder Hx of pleural effusion Hx of tuberculosis MULTIPLE CXR CLEARING PT. Obstructive sleep apnea DOES NOT USE DEVICE Surgical History (Updated 02/12/21 @ 10:27 by CODI Leach) H/O hand surgery History of hip replacement History of thoracentesis Social History Smoking/Tobacco Use Status: Never Smoking risk assessment performed?: Yes Alcohol Intake: current Alcohol Intake frequency: a few times a month Drug use: Never Substance use type: does not use Do you feel safe at home: Yes Do you feel safe in your relationship?: Yes Meds Allergies and Home Medications Allergies Allergy/AdvReac Type Severity Reaction Status Date / Time Latex, Natural Rubber Allergy Mild Itching Unverified 10/19/21 17:39 zolpidem [From Ambien] AdvReac Severe Psychosis Verified 10/19/21 17:39 loratadine [From Claritin] AdvReac Intermediate COUGH Unverified 10/19/21 17:39 mirtazapine AdvReac Intermediate Other (See Unverified 10/19/21 17:39 Comment) Home Medications Medication Instructions Recorded Confirmed Type cholecalciferol (vitamin D3) 5,000 unit PO DAILY 03/30/13 10/19/21 History multivitamin [Multi-Day] 1 ea PO DAILY 03/30/13 10/19/21 History vitamin B complex-folic acid [B 1 tab PO DAILY 12/12/19 10/19/21 History Complex 100] acetaminophen 1,000 mg PO Q8H PRN #90 tab 01/01/20 10/19/21 Rx albuterol sulfate 90 mcg/actuation 2 puff INHALATION Q6H PRN 08/21/20 10/19/21 History aerosol inhaler Exam Const General: cooperative and well developed Nutritional Appearance: overweight Orientation: alert, awake and oriented x3 Neck Neck: normal visual inspection and no lymphadenopathy Thyroid: thyroid normal and nontender Chest Chest: normal inspection of the chest Resp Effort & Inspection: normal respiratory effort and able to speak in complete sentences Auscultation: no rales, no rhonchi and no wheezes Cardio Jugular venous pressure: no JVD Rate: regular rate Rhythm: regular rhythm Heart Sounds: S1 normal, S2 normal, no click, no gallops, no murmurs and no rubs GI Inspection: normal to inspection Palpation: soft, no hepatosplenomegaly and nontender Extrem General: normal to inspection and no pedal edema Results Labs Result diagrams: 10/19/21 17:40 10/19/21 17:40 Labs: Laboratory Results - last 24 hr 10/19/21 10/19/21 10/19/21 17:40 17:40 20:30 WBC 7.47 RBC 5.01 Hgb 14.8 Hct 45.2 MCV 90.2 MCH 29.5 MCHC 32.7 RDW 12.7 Plt Count 196 MPV 9.8 Immature Gran % 0.4 Neutrophils % 55.3 Lymphocytes % 31.7 Monocytes % 9.8 Eosinophils % 2.4 Basophils % 0.4 Nucleated RBC % 0 Absolute Neutrophils 4.13 Absolute Lymphocytes 2.37 Absolute Monocytes 0.73 Absolute Eosinophils 0.18 Absolute Basophils 0.03 Sodium 145 Potassium 3.5 Chloride 108 H Carbon Dioxide 29.2 Anion Gap 7.8 BUN 20 H Creatinine 1.1 Estimated GFR/1.73 m2 >= 60.00 Glucose 105 Calcium 8.9 Magnesium 2.1 Total Bilirubin 0.4 AST 22 ALT 12 L Alkaline Phosphatase 63 Troponin I < 0.05 < 0.05 Total Protein 7.4 Albumin 4.3 COVID-19 Source SARS-CoV-2 (PCR) 10/19/21 21:55 WBC RBC Hgb Hct MCV MCH MCHC RDW Plt Count MPV Immature Gran % Neutrophils % Lymphocytes % Monocytes % Eosinophils % Basophils % Nucleated RBC % Absolute Neutrophils Absolute Lymphocytes Absolute Monocytes Absolute Eosinophils Absolute Basophils Sodium Potassium Chloride Carbon Dioxide Anion Gap BUN Creatinine Estimated GFR/1.73 m2 Glucose Calcium Magnesium Total Bilirubin AST ALT Alkaline Phosphatase Troponin I Total Protein Albumin COVID-19 Source Nasal/Nares SARS-CoV-2 (PCR) Negative Last Vital Signs Pulse 62 10/19/21 22:30 Resp 14 10/19/21 22:30 BP 146/83 H 10/19/21 22:30 Pulse Ox 97 10/19/21 22:30 PAWSS Have you Been Recently Intoxicated or Drunk Within the Last 30 days?: No Have you Ever Experienced Previous Episodes of Alcohol Withdrawal?: No Have you ever Experienced Withdrawal Seizures?: No Have you ever Experienced Delirium Tremens(DT)s?: No Have you ever undergone Alcohol Rehabilitation Treatment (i.e, inpt ot outpatient treatment programs)?: No Have you ever Experienced Blackouts?: No Have you ever Combined Alcohol with other Downers within the last 90 days?: No Have you ever Combined Alcohol with any other Substance of Abuse during the last 90 days?: No Positive Blood Alcohol level on Presentation? [PCS.BAL]: No Evidence of Increased Autonomic Activity (i.e. HR>120, tremor, sweating, agitation, nausea)?: No Result: 0
[2021-10-20] VITALS (9 sets, daily range): BP systolic 130–160; BP diastolic 80–99; PULSE 60–76; RESP 16–18; TEMP 35.7–37; O2SAT 96–99
[2021-10-20 00:09] LABS: D-Dimer 314 ng/mlFEU (<500)
[2021-10-20 07:22] LABS: HCT 44.2 % (40.0-50.0); HGB 14.5 g/dL (13.5-17.5); MCH 29.5 pg (27.0-33.0); MCHC 32.8 % (32.0-36.0); MPV 9.6 fL (8.0-11.0); Platelet Count 159 10^3/uL (130-400); RBC 4.91 10^6/uL (4.36-5.78); RDW 12.4 % (11.8-14.1); WBC 7.02 10^3/uL (4.4-10.8)
[2021-10-20 07:41] LABS: Troponin I < 0.05 ng/mL (<0.06)
[2021-10-20] MEDS: Normal Saline Flush 10 ML SYR IVP ×2 (07:42→20:22)
[2021-10-20] MEDS: Aspirin E.C. 81 MG TABEC PO (07:42)
--- NOTE | 2021-10-20 09:00 | RT.EKG_ITS ---
APPROVED REPORT Exam: Resting ECG Reason for Exam: chest pain Patient Location: I HR:65 bpm ECG Measurements Heart Rate 65 AXIS IL 228 P 19 QRSd 106 QRS 91 QT 390 T 0 QTc 406 Conclusion Sinus rhythm...normal P axis, V-rate 60- 99 Prolonged IL interval...IL >220, V-rate 50- 90 Inferior infarct, age indeterminate...Q>35mS, T neg, II III aVF
--- NOTE | 2021-10-20 11:32 | INITIAL_ITS ---
- If Service Date Differs Date of service: 10/20/21 Time of Service: 11:32 Care Management Initial Assess REASON FOR HOSPITALIZATION:: chest pain PAST MEDICAL HISTORY/PAST SURGICAL HISTORY:: Active Problem List. Chest pain, atypical (Acute). Trochanteric bursitis, left hip (Acute). History of total left hip arthroplasty (Acute 12/31/19). Tubular adenoma of colon (Acute). Avascular necrosis of bone of left hip (Acute). Postoperative anemia due to ac mechoopda blood loss (Acute). Medical History. Detached retina. History of asthma. History of posttraumatic stress disorder (PTSD). History of reactive airway disease. Hx of concussion. Hx of dislocation of shoulder. Hx of pleural effusion. Hx of tuberculosis. MULTIPLE CXR CLEARING PT. Obstructive sleep apnea. DOES NOT USE DEVICE. Surgical History. H/O hand surgery. History of hip replacement. History of thoracentesis PREVIOUS FUNCTIONAL STATUS/SOCIAL/FAMILY SUPPORTS:: Sloan, who prefers to be called Godwin lives in [place] with his , Michael. 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 They have two adult children who live in [place] and are very supportive. Godwin is independent at baseline. CURRENT FUNCTIONAL STATUS:: Godwin was sitting up in his chair when CM met with him. He shared some concerns with CM regarding this admission. He stated that he did not feel comfortable in the room he was assigned to, as it is a Covid isolation room (he is not on isolation precautions), but there is no other non isolation room available for him at this time. He also reported that he refused lovenox, as he did not feel it was indicated. He stated that he does not want to remain overnight again for his NPI, as it is not available today. CM brought his concerns to the MD, who will address them with him. CM will continue to follow. ADVANCE DIRECTIVES:: Michael listed as agent. Has patient been provided with info about the portal/API?: Yes Did the patient sign up for the portal?: No CODE STATUS:: Full Code INSURANCE COVERAGE / FINANCIAL ISSUES:: [employer]/ [employer] CURRENT HOME/COMMUNITY SERVICES/EQUIPMENT:: No Equipment or services at this [facility]. PRIMARY CARE PHYSICIAN:: Sonu Espinosa POTENTIAL DISCHARGE NEEDS:: Evaluations for further needs, follow up appointments. PATIENT/FAMILY EDUCATION NEEDS:: Review discharge instructions and limitations, discussion of self care needs including ask me three. ANTICIPATED BARRIERS TO DISCHARGE:: NPI is not available today, which may delay discharge. TRANSPORTATION:: Via private vehicle. PLAN:: Anticipate Silex will return home when medically cleared by MD. He will drive himself home via private vehicle. He will follow up with his PCP and discharge plan of care. CM will continue to follow.
--- NOTE | 2021-10-20 13:35 | W.PM.PROGNOT ---
Date of Service Date of service: 10/20/21 Time of Service: 13:35 Assessment and Plan Assessment and plan (1) Chest pain, atypical: Status: Acute Assessment and plan: Concern for unstable angina as the chest pain occurred at rest and was relieved with nitroglycerin. Will continue to monitor on tele with plans for MPI tomorrow. NPO after midnight. Echo reassuring - preserved EF and no wall motion abnormalities. Checking Fasting lipid panel, A1C. (2) Hypertension: Status: Chronic Assessment and plan: persistent here. Would like to start on a medication on this admission. Given trace edema in the feet, would do well with a diuretic. Will start chlorthalidone. (3) Obesity: Status: Chronic Assessment and plan: BMI of 33.9. Check TSH, A1C. Concern for underlying sleep apnea. (4) History of asthma: Assessment and plan: Has prn albuterol (5) DVT prophylaxis: Status: Acute Assessment and plan: SC enoxaparin (6) Discharge planning issues: Status: Acute Assessment and plan: full code Discussed with the patient that, should he leave tonight, it would be against medical advice. Disposition is pending results of his MPI tomorrow. Subjective Subjective Interval history since last seen: Mr Syed has not had any chest pain today. He was actually interested in going home today with outpatient follow up for stress test since it was not available today, but agreed to stay. He did endorse the fact that the chest pain was at rest and relieved with nitroglycerin. We discussed results of his echocardiogram and I gave him a copy of the results on paper. Denies dizziness, chest pain at the time of exam, shortness of breath, nausea. Exam Narrative Exam Narrative: General: Pleasant milddle-aged obese male, [place], NAD HEENT: EOMI, MMM Heart: RRR, no m/r/g Lungs: CTAB Abdomen: soft, nontender, nondistended Extremities: trace edema at B feet Objective Last Vital Signs Temp 35.7 C L 10/20/21 07:22 Pulse 70 10/20/21 07:22 Resp 18 10/20/21 07:22 BP 154/95 H 10/20/21 07:22 Pulse Ox 96 10/20/21 07:22 Laboratory Results - last 24 hr 10/19/21 10/19/21 10/19/21 17:40 17:40 20:30 WBC 7.47 RBC 5.01 Hgb 14.8 Hct 45.2 MCV 90.2 MCH 29.5 MCHC 32.7 RDW 12.7 Plt Count 196 MPV 9.8 Immature Gran % 0.4 Neutrophils % 55.3 Lymphocytes % 31.7 Monocytes % 9.8 Eosinophils % 2.4 Basophils % 0.4 Nucleated RBC % 0 Absolute Neutrophils 4.13 Absolute Lymphocytes 2.37 Absolute Monocytes 0.73 Absolute Eosinophils 0.18 Absolute Basophils 0.03 D-Dimer Sodium 145 Potassium 3.5 Chloride 108 H Carbon Dioxide 29.2 Anion Gap 7.8 BUN 20 H Creatinine 1.1 Estimated GFR/1.73 m2 >= 60.00 Glucose 105 Calcium 8.9 Magnesium 2.1 Total Bilirubin 0.4 AST 22 ALT 12 L Alkaline Phosphatase 63 Troponin I < 0.05 < 0.05 Total Protein 7.4 Albumin 4.3 COVID-19 Source SARS-CoV-2 (PCR) 10/19/21 10/19/21 10/20/21 21:55 23:24 07:00 WBC 7.02 RBC 4.91 Hgb 14.5 Hct 44.2 MCV 90.0 MCH 29.5 MCHC 32.8 RDW 12.4 Plt Count 159 MPV 9.6 Immature Gran % Neutrophils % Lymphocytes % Monocytes % Eosinophils % Basophils % Nucleated RBC % Absolute Neutrophils Absolute Lymphocytes Absolute Monocytes Absolute Eosinophils Absolute Basophils D-Dimer 314 Sodium Potassium Chloride Carbon Dioxide Anion Gap BUN Creatinine Estimated GFR/1.73 m2 Glucose Calcium Magnesium Total Bilirubin AST ALT Alkaline Phosphatase Troponin I Total Protein Albumin COVID-19 Source Nasal/Nares SARS-CoV-2 (PCR) Negative 10/20/21 07:00 WBC RBC Hgb Hct MCV MCH MCHC RDW Plt Count MPV Immature Gran % Neutrophils % Lymphocytes % Monocytes % Eosinophils % Basophils % Nucleated RBC % Absolute Neutrophils Absolute Lymphocytes Absolute Monocytes Absolute Eosinophils Absolute Basophils D-Dimer Sodium Potassium Chloride Carbon Dioxide Anion Gap BUN Creatinine Estimated GFR/1.73 m2 Glucose Calcium Magnesium Total Bilirubin AST ALT Alkaline Phosphatase Troponin I < 0.05 Total Protein Albumin COVID-19 Source SARS-CoV-2 (PCR) Objective Narrative Objective Narrative: EKG: HR 65, NSR, inferior ST-T abnormalities, unchanged from prior EKG. PAWSS Have you Been Recently Intoxicated or Drunk Within the Last 30 days?: No Have you Ever Experienced Previous Episodes of Alcohol Withdrawal?: No Have you ever Experienced Withdrawal Seizures?: No Have you ever Experienced Delirium Tremens(DT)s?: No Have you ever undergone Alcohol Rehabilitation Treatment (i.e, inpt ot outpatient treatment programs)?: No Have you ever Experienced Blackouts?: No Have you ever Combined Alcohol with other Downers within the last 90 days?: No Have you ever Combined Alcohol with any other Substance of Abuse during the last 90 days?: No Positive Blood Alcohol level on Presentation? [PCS.BAL]: No Evidence of Increased Autonomic Activity (i.e. HR>120, tremor, sweating, agitation, nausea)?: No Result: 0
--- NOTE | 2021-10-20 16:22 | CHAPLAIN ---
I visited with Godwin this morning. He was waiting to see Dr. Carrasco on her rounds and wondered when that might be, as he was expecting to be discharged. 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 He was worried about being in a room in the COVID section of Med/Surg. He has not been vaccinated and explained why. Godwin shared some personal history. He told me that he is very close to his , Michael, a nurse in our Birthing Center, and he would prefer to be home with her tonight and had considered leaving AMA, and to have his stress test tomorrow. According to Dr. Carrasco's notes, he agreed to stay.
[2021-10-21 02:42] VITALS: BP 136/74; PULSE 65; RESP 14; O2SAT 96
[2021-10-21 07:12] VITALS: PULSE 66
[2021-10-21 07:51] LABS: HCT 43.7 % (40.0-50.0); HGB 14.6 g/dL (13.5-17.5); MCH 29.1 pg (27.0-33.0); MCHC 33.4 % (32.0-36.0); MCV 87.2 fL (80-95); MPV 9.8 fL (8.0-11.0); Platelet Count 175 10^3/uL (130-400); RBC 5.01 10^6/uL (4.36-5.78); RDW 12.5 % (11.8-14.1); RDW-SD 39.8 fL; WBC 7.68 10^3/uL (4.4-10.8)
[2021-10-21 08:10] VITALS: BP 162/95; PULSE 72; RESP 18; TEMP 36.4; O2SAT 98
[2021-10-21 08:38] LABS: TSH (W/Ref FT4) 1.53 uIU/mL (0.36-3.74)
--- NOTE | 2021-10-21 09:05 | DI.NM_ITS ---
APPROVED REPORT Exam: Exercise Treadmill Patient Location: In-Patient Room/Bed: 215 Stress Nurse: Lakeisha Zuluaga RN Ordering Provider:MAUREEN BLACKWOOD, Contact Number: [phone] BMI: 33.90 Baseline Rhythm: Sinus Rhythm Comment: Borderline prolonged PA interval Indications: Chest pain Medical History Medical History: Hypertension, asthma, KYLAH, L hip pain, left hip arthoplasty, RAD Cardiac Medications: Albuterol Allergies: Latex, natural rubber, zolpidem, mirtazapine, loratidine Cardiac Risk Factors: Hypertension, asthma, obesity, family hx Previous Cardiac Procedures: None Pretest Chest Pain Characteristics: None Exercise History: Indeterminate Physical Disabilities: None Lung Sounds: Clear to auscultation Heart Sounds: Regular Stress Test Details Test: Exercise stress testing was performed using a modified Humphrey protocol. Nuclear Acquisition: Rest Tc-99m/Stress Tc-99m 1 day Rest Isotope: Tc-99m Sestamibi. Dose: 12.1 Date: 10/21/2021 Injection Time: 0825 Stress Isotope: Tc-99m Sestamibi. Dose: 37.0 Date: 10/21/2021 Injection Time: 0955 HR Resting HR Supine: 67 bpm Max Heart Rate (APMHR): 154.251590 bpm Resting HR Standin bpm Target HR (85% APMHR): 130.451085 bpm Max HR Achieved: 146 bpm % of APMHR: 94.81 Recovery HR: 98 bpm HR response to stress: Normal HR response to stress BP Resting BP Supine: 150/82 mmHg Resting BP Standin/78 mmHg Max BP: 210/88 mmHg Recovery BP: 148/70 mmHg BP response to stress: Abnormal hypertensive response to stress. ECG Resting ECG: Sinus Rhythm Ectopy: None Stress ECG: Sinus Tachycardia ST Change: No significant ST segment changes noted Arrhythmia: Occasional PVCs, couplets Recovery ECG: Sinus Rhythm Recovery ST Change: No significant ST segment changes noted Recovery Arrhythmia: Rare PAC, PVC Clinical Reason for Termination: Fatigue Stress Symptoms: General Fatigue Exercise duration: 7 min28 sec Highest Stage Reached: Stage 3: 3.4 mph at 14% grade. Exercise capacity: 8.45 METs Mojica Treadmill Score: 6.1 Rate Pressure Product: 08476 Stress ECG Conclusion 1. The resting electrocardiogram showed right axis deviation, early R wave transition 2. The patient exercised on the Humphrey protocol and completed a workload of 8.45 METS, limited by gerard yu 3. Normal heart rate response to exercise. The patient achieved 94% of predicted heart rate for age. Hypertensive blood pressure response to exercise 4. Electrocardiographically there was no evidence of myocardial ischemia 5. Rare atrial and ventricular ectopic beats were noted Mojica Treadmill Score is 6.1 which is Low risk. Stress Test Summary STAGE Time (mins) Speed (mph) Grade (%) HR BP SYMPTOMS METS Supine 67 150/82 Standing 73 148/78 SpO2 96% 1 3 1.7 10 103 152/82 SpO2 94% 4.6 2 6 2.5 12 130 162/84 SpO2 92% 7 3 9 3.4 14 146 SpO2 92% 10.2 1 min recovery 138 208/88 SpO2 95% 3 min recovery 111 210/88 SpO2 97% 6 min recovery 98 178/74 SpO2 95% 9 min recovery 92 148/70 SpO2 95% After injection of nuc med, treadmill speed decreased from 3.4 mph to 3.2 mph and grade decreased fro m 14% to 13% to allow patient to maintain exercise for 1 minute. MPI Conclusion Normal myocardial perfusion without evidence of ischemia or prior infarction EF is 58%, normal wall motion Radiologist Interpretation Radiologist Interpretation by: Evangelista Howell MD Interpretation Date/Time: 10/22/2021 16:04:08
[2021-10-21 09:34] LABS: Calculated LDL 115 mg/dL (<100); Cholesterol 172 mg/dL (<200); HDL Cholesterol 40 mg/dL (40-60); Triglyceride 87 mg/dL (<150)
[2021-10-21 10:49] LABS: Hemoglobin A1C 5.8 % (<5.7)
[2021-10-21 11:48] VITALS: BP 126/77; PULSE 74; RESP 18; TEMP 36.8; O2SAT 96
--- NOTE | 2021-10-21 13:13 | PHA.REVIEW ---
Pharmacy Admission Review - Admission Clinical Review (Last Reviewed 02/12/21 @ 10:19 by CODI Leach) Discharge planning issues (Acute) DVT prophylaxis (Acute) Chest pain, atypical (Acute) Latex, Natural Rubber Allergy (Mild, Unverified 10/19/21 17:39) Itching zolpidem [From Ambien] Adverse Reaction (Severe, Verified 10/19/21 17:39) Psychosis loratadine [From Claritin] Adverse Reaction (Intermediate, Unverified 10/19/21 17:39) COUGH mirtazapine Adverse Reaction (Intermediate, Unverified 10/19/21 17:39) Other (See Comment) Resuscitation Status Full Code Height 6 ft Weight 113.398 kg - Renal Dosing Renal Dosing: BUN 20 mg/dL (7-18) H 10/19/21 17:40 Creatinine 1.1 mg/dL (0.70-1.30) 10/19/21 17:40 Medications needing adjustments: Reviewed (SCr: 1.1, CrCl~85.9mL/min (using adjusted body weight). All medications dosed appropriately.) - Anticoagulation Anticoagulation: Hgb 14.6 g/dL (13.5-17.5) 10/21/21 07:35 Hct 43.7 % (40.0-50.0) 10/21/21 07:35 Plt Count 175 10^3/uL (130-400) 10/21/21 07:35 Creatinine 1.1 mg/dL (0.70-1.30) 10/19/21 17:40 DVT Prophylaxis: Reviewed Medications: Enoxaparin (Enoxaparin 40mg SC Q24H.) - Opiate Usage Evaluate Pain Scale/Pains Meds: N/A - Relevant Labs Sodium 145 mmol/L (136-145) 10/19/21 17:40 Potassium 3.5 mmol/L (3.5-5.1) 10/19/21 17:40 Chloride 108 mmol/L (98-107) H 10/19/21 17:40 Magnesium 2.1 mg/dL (1.8-2.4) 10/19/21 17:40 Electrolytes, C-Reactive P, ESR: Reviewed - DM Control DM Control: Glucose 105 mg/dL (74-106) 10/19/21 17:40 Hemoglobin A1c 5.8 % (<5.7) H 10/21/21 07:35 Insulin Dosing: N/A - Heart Failure/IA Heart Failure/IA: Troponin I < 0.05 ng/mL (<0.06) 10/20/21 07:00 EF%, RENETTA's, B-Blockers, Diuretics: N/A - BP Control BP Control: Blood Pressure 126/77 Blood Pressure 162/95 Blood Pressure 136/74 If elevated: Reviewed (Blood pressure elevated this admission, initiated Chlorthalidone 12.5mg daily.) - Qtc Review If Elevated: N/A (QTc 419 on admission.) - IV to PO Switch IV Medications: Reviewed - Home Meds Home Med List reviewed: Reviewed - Current meds Current Medication Order Review: Reviewed - Comments Comments/Follow Ups: Continue to monitor blood pressure, vitals, labs and for medication changes.
--- NOTE | 2021-10-21 15:30 | W.PM.DS.N ---
Date of service: 10/21/21 Time of Service: 15:30 DS: Diagnosis Discharge Diagnosis (1) Non-cardiac chest pain: Status: Resolved (2) Hypertension: Status: Chronic (3) Obstructive sleep apnea: (4) Obesity: Status: Chronic (5) History of asthma: (6) Prediabetes: Status: Acute (7) COVID-19 ruled out by laboratory testing: Status: Ruled-out Discharge Plan Disposition Patient Disposition: HOME Condition: Serious Discharge Details Reason For Visit: Chest Pain Admit Date/Time: 10/19/21 21:48 Admit Provider: Sergio Smith Attending Provider: Sergio Smith Primary Care Provider: Sonu Espinosa Hospital Course Hospital Course: Mr Syed is a 66 year old male with PMHx of asthma, KYLAH not using CPAP, obesity with NMI of 33.9, who was observed on [facility] hospitalist service from 10/19/21 until 10/21/21 for chest pain at rest which resolved with nitroglycerin. The patient was observed on telemetry without any arrhythmic events. He did not have any EKG changes and his troponins remained negative. He had an echocardiogram which showed no wall motion abnormalities and preserved LVEF. He underwent an MPI stress test which was negative for ischemia. He is medically stable for discharge home today. He is prediabetic and is being given information on this on discharge. His A1C is 5.8. He is hypertensive and was initiated on chlorthalidone 12.5 mg PO daily. He should follow up with his PCP. Care for patient on day of discharge took 35 minutes. Home Meds and New Rx's Prescriptions: New chlorthalidone 25 mg Tablet 12.5 mg PO DAILY Qty: 30 RF: 0 No Action albuterol sulfate 90 mcg/actuation HFA aerosol inhaler 2 puff inhalation Q6H PRNRF: 0 multivitamin [Multi-Day] 1 EACH tablet 1 ea PO DAILY RF: 0 cholecalciferol (vitamin D3) 5,000 UNIT tablet 5,000 unit PO DAILY RF: 0 vitamin B complex-folic acid [B Complex 100] 0.4 mg Tablet 1 tab PO DAILY RF: 0 acetaminophen 500 mg tablet 1,000 mg PO Q8H PRN (Reason: pain) Qty: 90 RF: 3 Discharge Instructions Instructions: Chlorthalidone (By mouth), Hypertension (DC), Noncardiac Chest Pain (DC), Prediabetes (DC) Additional Instructions: Follow up with your PCP in 1-2 weeks. Follow a low sodium diet. Return to the hospital with any fever, bleeding, or shortness of breath. If chest pain recurs, try an antacid. Referrals: Sonu Espinosa MD [Primary Care Provider] - Activity:: Activity as Tolerated Equipment/Supplies:: No Equipment Needed Diet:: Low Sodium Discharge Orders Discharge Orders: Discharge Order (Routine); Ordered 10/21/21 Ordered By: Ro Carrasco DS: Summary Time Spent with Patient providing and/or coordinating discharge services: Greater than 30 minutes Status at Discharge Functional status at discharge: independent ambulation Overall status at discharge: patient is back to baseline Mental Status: mental status grossly normal Speech and Movement: speech and movement normal Mood: congruent mood Affect: normal affect Exam Narrative Exam Narrative: General: Pleasant milddle-aged obese male, [place], NAD HEENT: EOMI, MMM Heart: RRR, no m/r/g Lungs: CTAB Abdomen: soft, nontender, nondistended Extremities: trace edema at B feet Psych Mental Status: mental status grossly normal Speech and Movement: speech and movement normal Mood: congruent mood Affect: normal affect DS: Data Vitals/I&O Vitals and I&O: Vital Signs Temperature 36.8 C 10/21/21 11:48 Temperature Source Tympanic 10/21/21 11:48 Pulse 74 10/21/21 11:48 Pulse Rhythm Regular 10/21/21 08:00 Pulse 63 10/19/21 22:20 Respiratory Rate 18 10/21/21 11:48 Respiratory Effort Non-Labored 10/21/21 08:00 Respiratory Depth Normal 10/21/21 08:00 Respiratory Pattern Normal 10/21/21 08:00 Blood Pressure 126/77 10/21/21 11:48 Blood Pressure Mean 100 10/19/21 22:16 Blood Pressure Position Supine 10/19/21 17:35 Pulse Oximetry 96 10/21/21 11:48 Oxygen Delivery Method Room Air 10/21/21 11:48 Oxygen Flow Rate 0 10/21/21 11:48 Pain Level 0 10/21/21 02:42 Intake & Output 10/20/21 10/21/21 10/21/21 23:59 11:59 23:59 Intake Total 100 / 100 Balance 100 / 100 Intake: Oral 100 / 100 Other: Urine Appearance Clear Clear Comment Patient up independently to the bathroom. pT voiding independent in toilet Voiding Methods Toilet Toilet Data Completed and Pending Completed studies during hospitalization [Text1]: CXR: No acute pulmonary findings. MPI: Normal myocardial perfusion without evidence of ischemia or prior infarction EF is 58%, normal wall motion Echo: Left Ventricle The left ventricle is normal size. The left ventricular systolic function is normal. The left ventricular ejection fraction is within the normal range. There is normal left ventricular wall thickness. There is normal LV segmental wall motion. There is no ventricular septal defect visualized. LVEF is 60%. Right Ventricle The right ventricle is normal size. The right ventricular systolic function is normal. The RVSP is 27.9 mmHg. Atria The left atrium size is normal. The right atrium size is normal. The interatrial septum is intact with no evidence for an atrial septal defect. Aortic Valve The Aortic valve is sclerotic. Aortic valve is trileaflet. There is no aortic valvular stenosis. Trace aortic regurgitation. Mitral Valve The mitral valve is normal in structure. No evidence of mitral valve stenosis. Mild mitral regurgitation. Tricuspid Valve The tricuspid valve is normal in structure. There is no tricuspid valve stenosis. Trace tricuspid regurgitation. Pulmonic Valve The pulmonary valve is normal in structure. There is no pulmonic valvular stenosis. There is no pulmonic valvular regurgitation. Great Vessels The aortic root is normal in size. The ascending aorta is normal in size. Aortic arch is normal in caliber. IVC is normal in size and collapses >50% with inspiration. Pericardium There is no pericardial effusion. Labs on day of discharge: Labs from last 24 hours 10/21/21 10/21/21 10/21/21 07:35 07:35 07:35 WBC 7.68 RBC 5.01 Hgb 14.6 Hct 43.7 MCV 87.2 MCH 29.1 MCHC 33.4 RDW 12.5 Plt Count 175 MPV 9.8 Hemoglobin A1c 5.8 H Triglycerides 87 Total Cholesterol 172 LDL Cholesterol, Calc 115 H HDL Cholesterol 40 TSH 1.53 PFSH All Active Problems (Updated 10/21/21 @ 15:35 by Ro Carrasco MD) Prediabetes (Acute) Discharge planning issues (Acute) DVT prophylaxis (Acute) Obesity (Chronic) Hypertension (Chronic) Chest pain, atypical (Acute) Trochanteric bursitis, left hip (Acute) History of total left hip arthroplasty (Acute 12/31/19) Tubular adenoma of colon (Acute) Avascular necrosis of bone of left hip (Acute) Postoperative anemia due to acute blood loss (Acute) Medical History (Updated 10/21/21 @ 15:35 by Ro Crarasco MD) Detached retina History of asthma History of posttraumatic stress disorder (PTSD) History of reactive airway disease Hx of concussion Hx of dislocation of shoulder Hx of pleural effusion Hx of tuberculosis MULTIPLE CXR CLEARING PT. Obstructive sleep apnea DOES NOT USE DEVICE Surgical History (Updated 02/12/21 @ 10:27 by CODI Leach) H/O hand surgery History of hip replacement History of thoracentesis Social History Smoking/Tobacco Use Status: Never Smoking risk assessment performed?: Yes Alcohol Intake: current Alcohol Intake frequency: a few times a month Drug use: Never Substance use type: does not use Do you feel safe at home: Yes Do you feel safe in your relationship?: Yes
--- NOTE | 2021-10-21 17:26 | PDOC.CMDIS ---
- If Service Date Differs Date of service: 10/21/21 Time of Service: 17:26 LACE Index Scoring Tool - Questions: Length of Stay (in days): 2 Acuity (Admit via E.D.?): Yes E.D. Visits: 1 - Answers: Total Score: 6 Risk of Readmission: Low Risk Care Management Discharge Reason for Hospitalization: chest pain Discharge Plan: Godwin will return home with no new services. He will drive himself home via private vehicle and follow up with his PCP and discharge plan of care. Patient/Family Education Needs: Review discharge instructions and limitations, discussion of self care needs including ask me three.
== END 2021-10-21 15:12 | disposition home or self-care (01) ==
LOC: ER 23:23 → MS 23:25
PROVIDERS: Internal Medicine; Admitting Provider Family Medicine; Emergency Provider Physician Assistant; PCP Internal Medicine; Visit Provider Family Medicine
DX: R07.89 Other chest pain (principal); R73.03 Prediabetes; J45.909 Unspecified asthma, uncomplicated; E66.9 Obesity, unspecified; I10 Essential (primary) hypertension; G47.33 Obstructive sleep apnea (adult) (pediatric); Z20.822 Contact with and (suspected) exposure to COVID-19
CPT/HCPCS: 36415; 78452; 80053; 80061; 85027; 87635; 93005; 99285; 71045; 83036; 83735; 84443; 84484; 85025; 85379; 93010; 93017; 93306; 99217; 99220; 99226; G0378

== ENCOUNTER 2022-03-01 18:10 | Outpatient (CLI) | payer OTHER, SELFPAY ==
[2022-03-01 17:06] LABS: BUN 14 mg/dL (7-18); CREATININE 1.1 mg/dL (0.70-1.30)
== END 2022-03-01 18:11 | disposition home or self-care (01) ==
LOC: LBO 18:17
PROVIDERS: PCP Internal Medicine; Visit Provider Internal Medicine
DX: Z13.89 Encounter for screening for other disorder (principal)
CPT/HCPCS: 36415; 84520; 82565

== ENCOUNTER 2022-03-09 11:49 | Emergency (ER) | payer OTHER, SELFPAY ==
[2022-03-09 11:59] VITALS: BP 151/77; PULSE 72; RESP 18; TEMP 37.3; O2SAT 96
--- NOTE | 2022-03-09 12:26 | ED.GENADUL_ITS ---
Discharge Plan Disposition Patient Disposition: HOME Condition: Good Discharge Details Clinical Impression: COVID-19 Primary Care Provider: Sonu Espinosa ED Provider: Delio Clark Home Meds and New Rx's Prescriptions: Continued albuterol sulfate 90 mcg/actuation HFA aerosol inhaler 2 puff inhalation Q6H PRN0RF multivitamin [Multi-Day] 1 EACH tablet 1 ea PO DAILY 0RF cholecalciferol (vitamin D3) 5,000 UNIT tablet 5,000 unit PO DAILY 0RF vitamin B complex-folic acid [B Complex 100] 0.4 mg Tablet 1 tab PO DAILY 0RF acetaminophen 500 mg tablet 1,000 mg PO Q8H PRN (Reason: pain) Qty: 90 3RF chlorthalidone 25 mg Tablet 12.5 mg PO DAILY Qty: 30 0RF Discharge Instructions Instructions: COVID-19 (Coronavirus Disease 2019) (ED) Additional Instructions: At this time your chest x-ray shows no evidence of pneumonia per the radiologist. Although you are still suffering from symptoms of COVID-19, there is no current evidence of a superimposed bacterial infection. Due to your history of lung disease with tuberculosis, it is important that you continue to monitor your symptoms closely. If you notice fever or chills, worsening cough, worsening productivity of your cough, it is important that you return for reevaluation. Please continue to take your paxlovid as directed. Please continue to monitor your home oxygen levels, and if you notice any values that are consistently below 91%, please return for reassessment. If you notice any worsening of your symptoms, or any new symptoms such as vomiting, diarrhea, fever, chills, shortness of breath, chest pain, numbness, weakness, or fainting , please return immediately to the emergency department for reevaluation. Please follow up with your primary care provider as soon as possible for reassessment and reevaluation. As always, it was a pleasure participating in your medical care today. 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 Patient states that he initially came down with symptoms on 02/27, and was eventually diagnosed with COVID-19 after a few days of symptoms. He was started on Paxil of it by his primary care provider Dr. Espinosa, and has had been 3 days with the Paxil of it so far. Yesterday evening he developed increased cough and shortness of breath. He states that his who is a nurse listen to his lungs and the auscultated crackles. He admits to a mild amount of cough this morning, but improves slightly for the productivity component as it becomes afternoon. He denies any hemoptysis, he has not had fever or chills for the last few days. He denies any recent long trips, surgeries or procedures. No previous blood clots. He denies any chest tightness or chest heaviness. He does admit to a very mild burning in his chest when he coughs. No other complaints at this time. Patient did receive his COVID-vaccine this fall. Patient has not received any steroids. He has not received monoclonal antibody infusion. Physical exam demonstrates minimal crackles in the bases. No calf tenderness. No hypoxemia or tachypnea on exam. Patient looks notably stable. Suspect COVID 19 with continued symptoms, differential also includes so flu and superimposed bacterial pneumonia. We will get an x-ray, monitor closely get of fluids and reassess. 1:10 PM Patient remained stable, vital signs stable, no evidence of hypoxemia, tachypnea or respiratory distress. Chest x-ray is read as negative for acute process per radiology. No evidence of significant or notable new infiltrate. We did discuss risks and benefits of steroids, and through shared decision-making process, patient has agreed to steroid administration at this time. Decadron will be given in a single dose IM. Patient's COVID test is positive, flu and RSV are negative. Patient appears still notably clinically stable, and does not show any evidence requiring admission, oxygen supplementation, or other further critical evaluation at this time. Vital signs demonstrate no tachypnea, hypoxemia, or tachycardia or fever. Recommend continue close monitoring of his oxygen status. Discussed red flags that would represent development of bacterial pneumonia. I have extensively reviewed the treatment plan and d ischarge instructions with the patient. I have addressed all patient concerns at this time. The patient was made aware of what symptoms to monitor for that would warrant a return to the emergency department. Discussed the plan with the patient, they demonstrate verbal understanding and agreement with our assessment and plan at this time. The documentation in this chart was dictated using [employer] dictation software. Please excuse any dictation errors. FINDINGS: LUNGS: Clear. No pleural abnormality seen. HEART: Normal. MEDIASTINUM: Normal. BONES: Degenerative changes in the spine. IMPRESSION: No acute pulmonary findings. HPI General Date/Time Provider Initiated Documentation: 03/09/22 11:52 . HPI Narrative: This is a 66-year-old male with a past medical history of hypertension, tuberculosis in the 1980s with chronic lung scarring, who did have a prolonged treatment phase at that time, who presents today for COVID-19 and some continued/worsening cough and shortness of breath. Patient states that he initially came down with symptoms on 02/27, and was eventually diagnosed with COVID-19 after a few days of symptoms. He was started on Paxil of it by his primary care provider Dr. Espinosa, and has had been 3 days with the Paxil of it so far. Yesterday evening he developed increased cough and shortness of breath. He states that his who is a nurse listen to his lungs and the auscultated crackles. He admits to a mild amount of cough this morning, but improves slightly for the productivity component as it becomes afternoon. He denies any hemoptysis, he has not had fever or chills for the last few days. He denies any recent long trips, surgeries or procedures. No previous blood clots. He denies any chest tightness or chest heaviness. He does admit to a very mild burning in his chest when he coughs. No other complaints at this time. Patient did receive his COVID-vaccine this fall. Patient has not received any steroids. He has not received monoclonal antibody infusion. Related Data Home Medications Medication Instructions Recorded Confirmed cholecalciferol (vitamin D3) 125 5,000 unit PO DAILY 03/30/13 10/19/21 mcg (5,000 unit) tablet multivitamin (Multi-Day) 1 ea PO DAILY 03/30/13 10/19/21 vitamin B complex-folic acid 0.4 1 tab PO DAILY 12/12/19 10/19/21 mg tablet (B Complex 100) acetaminophen 500 mg tablet 1,000 mg PO Q8H PRN #90 tab 01/01/20 10/19/21 albuterol sulfate 90 mcg/actuation 2 puff INHALATION Q6H PRN 08/21/20 10/19/21 aerosol inhaler chlorthalidone 25 mg tablet 12.5 mg PO DAILY #30 tab 10/21/21 Previous Rx's Medication Instructions Recorded acetaminophen 500 mg tablet 1,000 mg PO Q8H PRN #90 tab 01/01/20 chlorthalidone 25 mg tablet 12.5 mg PO DAILY #30 tab 10/21/21 Allergies Allergy/AdvReac Type Severity Reaction Status Date / Time Latex, Natural Rubber Allergy Mild Itching Unverified 03/09/22 12:28 zolpidem [From Ambien] AdvReac Severe Psychosis Verified 03/09/22 12:28 loratadine [From Claritin] AdvReac Intermediate COUGH Unverified 03/09/22 12:28 mirtazapine AdvReac Intermediate Other (See Unverified 03/09/22 12:28 Comment) General Stated Complaint: RespSymp CASTRO: 4 Review of Systems All systems reviewed & are unremarkable except as noted in HPI and below PFSH All Active Problems (Updated 03/09/22 @ 13:07 by Delio Clark DO) COVID-19 (Acute) Prediabetes (Acute) Discharge planning issues (Acute) DVT prophylaxis (Acute) Obesity (Chronic) Hypertension (Chronic) Chest pain, atypical (Acute) Trochanteric bursitis, left hip (Acute) History of total left hip arthroplasty (Acute 12/31/19) Tubular adenoma of colon (Acute) Avascular necrosis of bone of left hip (Acute) s/p L ROSE on 12/31/19 Postoperative anemia due to acute blood loss (Acute) Medical History Detached retina History of asthma History of posttraumatic stress disorder (PTSD) History of reactive airway disease Hx of concussion Hx of dislocation of shoulder Hx of pleural effusion Hx of tuberculosis MULTIPLE CXR CLEARING PT. Obstructive sleep apnea DOES NOT USE DEVICE Surgical History H/O hand surgery History of hip replacement History of thoracentesis Social History Smoking/Tobacco Use Status: Never Smoking risk assessment performed?: Yes Alcohol Intake: current Alcohol Intake frequency: a few times a month Drug use: Never Substance use type: does not use Do you feel safe at home: Yes Do you feel safe in your relationship?: Yes Exam Narrative Exam Narrative: 1.Const: Well-nourished, Well-developed, appearing stated age 2.Eyes: PERRL, no conjunctival injection, and symmetrical lids. 3.ENT: Atraumatic external nose and ears. Moist MM. Neck: Symmetric, trachea midline, No thyromegaly. 4.CVS: +S1/S2, No murmurs or gallops. Peripheral pulses 2+ and equal in all extremities. Brisk capillary refill in all extremities. 5.RESP: Unlabored respiratory effort. Minimal crackles in the bases. No wheezes or rhonchi. 6.GI: Soft, Nontender/Nondistended, No hepatosplenomegaly. No guarding or rebound. 7.MSK: Normocephalic/Atraumatic, Extremities w/o deformity or ttp No cyanosis or clubbing, Normal movement of all extremities, no calf tenderness. 8.Skin: Warm, Dry. No rashes or lesions. 9.Neuro: nutrition director II-XII grossly intact. Sensation grossly intact, no focal neurologic deficits. 10.Psych: (AAO) x3. Appropriate mood and affect Course Vital Signs Vital signs: Vital Signs Temperature 37.3 C 03/09/22 11:59 Pulse 72 03/09/22 11:59 Respiratory Rate 18 03/09/22 11:59 Blood Pressure 151/77 H 03/09/22 11:59 Pulse Oximetry 96 03/09/22 11:59 Temperature 37.3 C 03/09/22 11:59 Temperature Source Temporal Artery Scan 03/09/22 11:59 Pulse 72 03/09/22 11:59 Respiratory Rate 18 03/09/22 11:59 Blood Pressure 151/77 H 03/09/22 11:59 Blood Pressure Position Sitting 03/09/22 11:59 Pulse Oximetry 96 03/09/22 11:59 Oxygen Delivery Method Room Air 03/09/22 11:59 Oxygen Flow Rate 0 03/09/22 11:59 Pain Level 0 03/09/22 11:59
--- NOTE | 2022-03-09 12:37 | DI.RAD_ITS ---
Exam(s) XR PORTABLE CHEST AP EXAM: XR PORTABLE CHEST AP CLINICAL HISTORY: covid +, chough, r/o pneumonia TECHNIQUE: 2D digital imaging was performed. COMPARISON: CR,XR XR PORTABLE CHEST AP from 10/19/2021 FINDINGS: LUNGS: Clear. No pleural abnormality seen. HEART: Normal. MEDIASTINUM: Normal. BONES: Degenerative changes in the spine. IMPRESSION: No acute pulmonary findings. DATA REPOSITORY: RADIATION DOSE DELIVERED:
[2022-03-09] MEDS: Dexamethasone 10 MG/ML VIAL IM (13:14)
[2022-03-09 13:16] LABS: Influenza A PCR Negative (Negative); Influenza B PCR Negative (Negative); RSV PCR Negative (Negative)
[2022-03-09 14:02] LABS: COVID-19 PCR Positive (Negative)
== END 2022-03-09 13:15 | disposition home or self-care (01) ==
PROVIDERS: Emergency Provider Student in an Organized Health Care Education/Training Program; PCP Internal Medicine
DX: U07.1 COVID-19 (principal)
CPT/HCPCS: 87637; 96372; 99283; 99284; 71045; J1100

== ENCOUNTER 2022-05-03 19:52 | Outpatient (REF) | payer OTHER, SELFPAY ==
[2022-05-03 15:35] LABS: Hemoglobin A1C 5.8 % (<5.7)
[2022-05-03 15:50] LABS: NT-proBNP 31 pg/mL (<300)
[2022-05-03 16:39] LABS: Vitamin B12 286 pg/mL (193-986)
== END 2022-05-03 19:53 | disposition home or self-care (01) ==
LOC: NCHCN 19:52
PROVIDERS: PCP Internal Medicine; Visit Provider Internal Medicine
DX: Z86.16 Personal history of COVID-19 (principal); R41.3 Other amnesia; R06.09 Other forms of dyspnea; F32.9 Major depressive disorder, single episode, unspecified; R73.03 Prediabetes; M25.551 Pain in right hip; G47.33 Obstructive sleep apnea (adult) (pediatric); E55.9 Vitamin D deficiency, unspecified
CPT/HCPCS: 82306; 82607; 83036; 83880

== ENCOUNTER → 2022-05-05 02:27 | Outpatient (CLI) | payer OTHER, SELFPAY ==
--- NOTE | 2022-05-05 10:11 | DI.RAD_ITS ---
Exam(s) XR HIP RT COMPLETE AP PELVIS EXAM: XR HIP RT COMPLETE AP PELVIS INDICATION: RT HIP PAIN, M25.551. COMPARISON: CR XR HIP LT COMPLETE AP PELVIS from 01/16/2020 TECHNIQUE: 2D digital imaging was performed. Two views. FINDINGS: Stable appearance left hip prosthesis. Mild spurring right acetabulum. Right hip joint space is ma intained. IMPRESSION: Mild degenerative changes of the right hip. DATA REPOSITORY: RADIATION DOSE DELIVERED:
== END ==
PROVIDERS: PCP Internal Medicine; Visit Provider Internal Medicine
DX: M16.11 Unilateral primary osteoarthritis, right hip (principal)
CPT/HCPCS: 73502

== ENCOUNTER 2022-06-13 04:26 | Outpatient (CLI) | payer OTHER, SELFPAY ==
[2022-06-13] MEDS: Albuterol HFA 18 GM 200 PUFF INH IH (11:44)
[2022-06-13] MEDS: Inhaler, Assist Device 1 EACH MC (11:44)
--- NOTE | 2022-06-14 17:41 | PFT_ITS ---
Date of service: 06/13/22 Time of Service: 08:06 Pulmonary Function Test Result Requesting Provider Clementee Indications: [facility] Interpretation Spirometry: There is no airflow limitation. Tehre is no significant bronchodilator response. There is restrictive appearing spirometry. The muscle pressures are normal. Lung Volumes: Lung volumes are borderline low. Diffusion Capacity: The diffusion is slightly low. Airway Pressure: Normal airways resistance. Impression There is mild restrictive disease with normal muscle pressures and a reduced DLCO. This pattern can be seen in interstitial lung disease. Note: When compared to 2013, The FVC and FEV1 have actually improved when accounting for aging. Clinical Correlation therefore is recommended.
== END 2022-06-13 04:27 | disposition home or self-care (01) ==
LOC: RT 04:26
PROVIDERS: PCP Internal Medicine; Visit Provider Student in an Organized Health Care Education/Training Program
DX: U09.9 Post COVID-19 condition, unspecified (principal); R94.2 Abnormal results of pulmonary function studies
CPT/HCPCS: 94060; 94726; 94729

== ENCOUNTER → 2022-07-25 01:52 | Outpatient (CLI) | payer OTHER, SELFPAY ==
--- NOTE | 2022-07-25 | DI.MRI_ITS ---
Exam(s) MR LUMBAR SPINE WO EXAM: MR LUMBAR SPINE WO CLINICAL HISTORY: LUMBAR BACK PAIN WITH RADICULOPATHY, M54.16. TECHNIQUE: Multiplanar multisequence MRI of the Lumbar spine was performed. COMPARISON: MR MR LUMBAR SPINE WO from 10/30/2019 FINDINGS: Conus medullaris is at normal level. There is no evidence of conus mass nor subjacent clumping of in trathecal nerve roots to suggest arachnoiditis. The distal thecal sac appears unremarkable.There is no evidence of Tarlov intrasacral cysts nor other significant findings within the sacral canal Bones:There are no fractures nor ominous osseous lesions in the lumbar vertebral bodies and visualize d sacrum. With respect to the individual levels... T12-L1: Unremarkable L1-2: Normal disc height and signal. No disc herniation nor central canal stenosis.No foraminal steno sis L2-3: Normal disc height. No disc herniation nor central canal stenosis.No foraminal stenosis.No face t arthropathy. L3-4: Mild decreased disc height which is uniform. Vacuum phenomenon seen within the mid disc space. The previously present disc protrusion at this level is less evident on the present study. However , there is now mild degenerative anterolisthesis of L3 upon L4 due to significant facet arthropathy a t this level which has progressed. There is no disc herniation at this time but there is moderate ce ntral canal stenosis again noted at this level due to the broad annular bulging, short AP dimensions of the pedicles, and facet arthropathy. There is only mild foraminal stenosis, this due to the relat clara preservation of disc height. L4-5: Normal disc height and signal. No disc herniation. No central canal stenosis. No foraminal s tenosis. Minimal facet degenerative changes. L5-S1: Mild-moderate anterolisthesis of L5 upon S1, related to pars defects. The amount of anterior slippage of L5 upon S1 appears similar to the previous study. There is pseudo herniation of the josé kristy again noted but without a dominant disc herniation. Central canal dimensions are within normal l imits. There is, however, significant impingement of the exiting nerve roots bilaterally again noted , these compressed between the overlying L5 pedicles and the subjacent annular bulging in the exiting neural foramina bilaterally. The actual facet joints at this level appear unremarkable. Soft tissues: paraspinal soft tissues appear unremarkable. IMPRESSION: 1. Compared to the prior MRI scan of 10/30/2019 the previously present disc protrusion at L3-4 has re solved. However, there is mild degenerative anterolisthesis of L3 upon L4 due to facet arthropathy w hich has progressed at this level. There is moderate central spinal canal stenosis at this level. N o foraminal stenosis at this level. 2. There is bilateral foraminal stenosis at L5-S1 level related to the anterolisthesis of L5 upon S1, as described above. There is impingement of the exiting nerve roots bilaterally in the exiting neur al foramina these levels, these compressed between the overlying L5 pedicles and subjacent annular bu lging related to the slippage-listhesis DATA REPOSITORY:
== END ==
PROVIDERS: PCP Internal Medicine; Visit Provider Internal Medicine
DX: M54.16 Radiculopathy, lumbar region (principal); M43.16 Spondylolisthesis, lumbar region; M43.17 Spondylolisthesis, lumbosacral region; M48.07 Spinal stenosis, lumbosacral region
CPT/HCPCS: 72148

== ENCOUNTER 2022-08-23 19:33 | Outpatient (REF) | payer OTHER, SELFPAY ==
[2022-08-25 09:54] LABS: Varicella IgG Antibody Positive (See Note)
== END 2022-08-23 19:34 | disposition home or self-care (01) ==
LOC: NCHCN 19:33
PROVIDERS: PCP Internal Medicine; Visit Provider Internal Medicine
DX: Z13.89 Encounter for screening for other disorder (principal)
CPT/HCPCS: 86787

== ENCOUNTER 2022-09-07 16:07 | Outpatient (REF) | payer OTHER, SELFPAY ==
[2022-09-09 11:50] LABS: Measles IgG Antibody Positive (See Note); Mumps Antibody IgG Positive (See Note)
[2022-09-09 11:54] LABS: Rubella IgG Ab (UVM) Positive (See Note)
== END 2022-09-07 16:08 | disposition home or self-care (01) ==
LOC: NCHCN 16:07
PROVIDERS: PCP Internal Medicine; Visit Provider Internal Medicine
DX: Z11.59 Encounter for screening for other viral diseases (principal); Z01.84 Encounter for antibody response examination
CPT/HCPCS: 86735; 86762; 86765

== ENCOUNTER 2022-10-27 09:31 | Outpatient (CLI) | payer OTHER, SELFPAY ==
--- NOTE | 2022-10-27 06:00 | DI.RAD_ITS ---
Exam(s) XR PAIN CLINIC LUMBAR SP 2V EXAM: XR PAIN CLINIC LUMBAR SP 2V CLINICAL HISTORY: Dx: Lumbar Radiculopathy TECHNIQUE: 2D and realtime digital imaging was performed. CONTRAST MATERIAL: Refer to procedure report. COMPARISON: No exams were available for comparison FINDINGS: Fluoroscopy was provided for Dr. Muñiz during the performance of a transforaminal epidural steroid in [facility]. Please refer to the procedure report for complete details. Ka,r=23.2 mGy IMPRESSION:
[2022-10-27 09:42] VITALS: BP 155/86; PULSE 68; RESP 20; TEMP 37.1; O2SAT 97
[2022-10-27] MEDS: Dexamethasone Sod. Phos./Pres-Free 10 MG/ML VIAL IJ (10:20)
[2022-10-27] MEDS: Omnipaque 240 MG/ML 50 ML BTL IJ (10:21)
[2022-10-27 10:35] VITALS: BP 154/88; PULSE 75; RESP 16; O2SAT 97
--- NOTE | 2022-10-27 11:12 | PDOC.PAIN ---
Date of service: 10/27/22 Time of Service: 11:14 Pain Clinic Procedure Note Procedure Note Procedure Note: LUMBAR / SACRAL TRANSFORAMINAL INJECTION Sloan Syed has been referred to the [facility] for a transforaminal nerve root block and steroid injection. COMMENTS: I previously evaluated him in the office on 08/18/22. Pre-procedure pain VAS was 7/10. Dx: Lumbosacral radiculopathy Patient was interviewed and the medical record reviewed. There were no medical, pharmacologic, radiographic or other structural contraindications to attempting fluoroscopically guided transforaminal nerve root block and epidural steroid injection. Risks and expected side effects as well as potential benefit of the procedure were reviewed and voiced concerns addressed. The printed consent form was signed and witnessed. Standard time-out procedure was performed. Patient was placed in the prone position on the fluoroscopy table and automated blood pressure cuff and pulse oximeter applied. Fluoroscopy was utilized to identify the right L5 neural foramen between L5 and sacral ala. A skin chente was made for the needle insertion site. A Chlorhexadine prep was carried out, and sterile drapes were applied. Local anesthesia was achieved in the skin and subcutaneous tissues. A 22 gauge curved tip spinal needle was then inserted, advanced with fluoroscopic guidance into the neural foramen, confirmed on the lateral view. After negative aspiration, 2 ml of Omnipaque 240 was injected confirming position in A/P and lateral views. This showed a good spread of dye transforaminally into the epidural space. There was no vascular update with contrast injection under continuous fluoroscopy and digital substraction. 15 mg of Dexamethasone was injected, followed by 0.5 ml of 1% Xylocaine flush for the nerve root block, as well. There was no unusual discomfort expressed.The needle was withdrawn. The patient tolerated the procedure well. A Band-Aid was applied. Vital signs were stable throughout the procedure and were as recorded in nursing records. If given, dosages of intravenous drugs for anxiolysis and analgesia were documented in nursing records. Follow up plans and appointments were discussed. Post procedure instruction was given as documented in nursing records and patient was discharged in the care of an identified team otr truck driver. COMMENTS: Post-procedure pain VAS was 1/10. This procedure can be completed up to 3 times per 12 months if it is found to be helpful. Sebastian Muñiz DO, MPH [facility]-Pain Management [facility] CC: Sonu Espinosa
== END 2022-10-27 09:32 | disposition home or self-care (01) ==
LOC: PC 09:31
PROVIDERS: PCP Internal Medicine; Visit Provider Preventive Medicine Occupational Medicine
DX: M54.17 Radiculopathy, lumbosacral region (principal)
CPT/HCPCS: 64483; 72100; Q9967

== ENCOUNTER 2022-12-30 17:41 | Outpatient (CLI) | payer OTHER, SELFPAY ==
--- NOTE | 2022-12-30 17:30 | DI.RAD_ITS ---
Exam(s) XR CHEST 2V PA LATERAL EXAM: XR CHEST 2V PA LATERAL CLINICAL HISTORY: evaluate pathology TECHNIQUE: 2D digital imaging was performed. COMPARISON: CR XR PORTABLE CHEST AP from 03/09/2022 CR XR HIP RT COMPLETE AP PELVIS from 05/05/2022 FINDINGS: HEART: Normal size. Aorta: Not dilated. Mildly tortuous. PULMONARY VASCULATURE: Normal. LUNGS: Mild scarring at the right lung base, otherwise clear. PLEURAL SPACE: No pleural effusion or pneumothorax. BONE:Unremarkable for age. IMPRESSION: No acute abnormality. DATA REPOSITORY: RADIATION DOSE DELIVERED:
--- NOTE | 2022-12-30 18:34 | DI.VRAD_ITS ---
PROCEDURE INFORMATION: Exam: XR Chest Exam date and time: 12/30/2022 6:13 PM Age: 67 years old Clinical indication: Other: Evaluate pathology TECHNIQUE: Imaging protocol: Radiologic exam of the chest. Views: 2 views. COMPARISON: 1. CT CHEST WO 06/08/2022 3:02 PM 2. CR XR PORTABLE CHEST AP 03/09/2022 12:19 PM 3. XR PORTABLE CHEST AP 10/19/2021 6:31 PM FINDINGS: Lungs: Unremarkable. No consolidation. Pleural spaces: Unremarkable. No pleural effusion. No pneumothorax. Heart/Mediastinum: Unremarkable. No cardiomegaly. Bones/joints: There are degenerative changes of the thoracic spine. IMPRESSION: No acute findings. Dictated and Authenticated by: Jarrett Bright MD. Ordering:BRANDON Guerrero MD
== END 2022-12-30 18:01 ==
LOC: DI 17:41
PROVIDERS: PCP Internal Medicine; Visit Provider Nurse Practitioner Family
DX: I88.9 Nonspecific lymphadenitis, unspecified (principal)
CPT/HCPCS: 71046

== ENCOUNTER 2022-12-30 17:46 | Outpatient (REF) | payer OTHER, SELFPAY ==
[2022-12-30 20:53] LABS: Abs Immature Grans 0.02 10^3/uL (0.0-0.06); Absolute Basophil Count 0.03 10^3/uL (0.0-0.2); Absolute Eosinophil Count 0.22 10^3/uL (0.0-0.7); Absolute Lymphocyte Count 1.95 10^3/uL (1.2-3.4); Absolute Monocyte Count 0.75 10^3/uL (0.1-0.8); Basophils % 0.4; Eosinophils % 3.2; HCT 45.3 % (40.0-50.0); Immature Grans % 0.3; Lymphocytes % 28.4; MCH 29.8 pg (27.0-33.0); MCHC 33.1 % (32.0-36.0); MCV 90 fL (80-95); Monocytes % 10.9; Neutrophils % 56.8; Platelet Count 198 10^3/uL (130-400); RBC 5.04 10^6/uL (4.36-5.78); RDW 12.7 % (11.8-14.1); RDW-SD 41.4 fL; WBC 6.87 10^3/uL (4.4-10.8)
[2022-12-30 21:04] LABS: ALT 11 U/L (16-63); AST 17 U/L (15-37); Albumin 4.3 g/dL (3.4-5.0); Alkaline Phosphatase 65 U/L (46-116); Anion Gap 4.6 mmol/L (3-11); BUN 11 mg/dL (7-18); Bilirubin, Total 0.4 mg/dL (0.2-1.0); CO2 32.4 mmol/L (21.0-32.0); CREATININE 1.1 mg/dL (0.70-1.30); Calcium 9.4 mg/dL (8.5-10.1); Chloride 106 mmol/L (98-107); Estimated GFR 73.58 (mL/min/1.73m2); Glucose 103 mg/dL (74-106); Potassium 4.3 mmol/L (3.5-5.1); Sodium 143 mmol/L (136-145); Total Protein 6.9 g/dL (6.4-8.2)
== END 2022-12-30 17:47 | disposition home or self-care (01) ==
LOC: LBN 17:46
PROVIDERS: PCP Internal Medicine; Visit Provider Nurse Practitioner Family
DX: I88.9 Nonspecific lymphadenitis, unspecified (principal)
CPT/HCPCS: 80053; 85025

== ENCOUNTER 2023-07-03 13:47 | Outpatient (REF) | payer OTHER, SELFPAY ==
[2023-07-03 15:13] LABS: Abs Immature Grans 0.01 10^3/uL (0.0-0.06); Absolute Basophil Count 0.02 10^3/uL (0.0-0.2); Absolute Eosinophil Count 0.19 10^3/uL (0.0-0.7); Absolute Lymphocyte Count 1.68 10^3/uL (1.2-3.4); Absolute Monocyte Count 0.53 10^3/uL (0.1-0.8); Absolute Neutrophil Count 3.85 10^3/uL (1.2-6.7); Basophils % 0.3; HCT 44.8 % (40.0-50.0); HGB 15.1 g/dL (13.5-17.5); Immature Grans % 0.2; Lymphocytes % 26.8; MCH 29.9 pg (27.0-33.0); MCHC 33.7 % (32.0-36.0); MCV 89 fL (80-95); MPV 10.5 fL (8.0-11.0); Monocytes % 8.4; Neutrophils % 61.3; Platelet Count 176 10^3/uL (130-400); RBC 5.05 10^6/uL (4.36-5.78); RDW 12.7 % (11.8-14.1); RDW-SD 41.4 fL; WBC 6.28 10^3/uL (4.4-10.8)
[2023-07-03 15:32] LABS: Iron 48 ug/dL (65-175); Total Iron Binding Capacity 240 ug/dL (250-450); Transferrin Sat 20 % (20-55)
[2023-07-03 15:55] LABS: Vitamin D 25 Total 28.9 ng/mL (30-100)
[2023-07-03 16:46] LABS: Hemoglobin A1C 5.7 % (<5.7)
== END 2023-07-03 13:48 | disposition home or self-care (01) ==
LOC: NCHCN 13:47
PROVIDERS: PCP Internal Medicine; Visit Provider Internal Medicine
DX: Z00.00 Encounter for general adult medical examination without abnormal findings (principal); R73.03 Prediabetes; Z13.21 Encounter for screening for nutritional disorder; Z13.0 Encounter for screening for diseases of the blood and blood-forming organs and certain disorders involving the immune mechanism
CPT/HCPCS: 82306; 83036; 83540; 83550; 85025

== ENCOUNTER 2024-01-01 17:53 | Outpatient (REF) | payer OTHER, MEDICARE, SELFPAY ==
[2024-01-01 14:59] LABS: HCT 43.1 % (40.0-50.0); HGB 14.4 g/dL (13.5-17.5); MCH 29.3 pg (27.0-33.0); MCHC 33.4 % (32.0-36.0); MCV 88 fL (80-95); Platelet Count 172 10^3/uL (130-400); RBC 4.91 10^6/uL (4.36-5.78); RDW 12.7 % (11.8-14.1); RDW-SD 41.1 fL; WBC 5.25 10^3/uL (4.4-10.8)
[2024-01-01 15:21] LABS: Hemoglobin A1C 5.7 % (<5.7)
[2024-01-01 15:32] LABS: Vitamin D 25 Total 23.2 ng/mL (30-100)
[2024-01-01 15:39] LABS: ALT 13 U/L (16-63); AST 18 U/L (15-37); Alkaline Phosphatase 62 U/L (46-116); Anion Gap 8.2 mmol/L (3-11); BUN 16 mg/dL (7-18); Bilirubin, Total 1.1 mg/dL (0.2-1.0); CO2 29.8 mmol/L (21.0-32.0); Calcium 8.9 mg/dL (8.5-10.1); Chloride 107 mmol/L (98-107); Estimated GFR 81.98 (mL/min/1.73m2); Glucose 98 mg/dL (74-106); Potassium 4.1 mmol/L (3.5-5.1); Sodium 145 mmol/L (136-145); Total Protein 6.7 g/dL (6.4-8.2)
[2024-01-05 12:05] LABS: Testosterone, Free 7.72 ng/dL (3.47-13.0); Testosterone, Total 240 ng/dL (240-950)
== END 2024-01-01 17:54 | disposition home or self-care (01) ==
LOC: NCHCN 17:53
PROVIDERS: PCP Internal Medicine; Referring Provider Family Medicine; Visit Provider Family Medicine
DX: F52.21 Male erectile disorder (principal); R73.03 Prediabetes
CPT/HCPCS: 80053; 82306; 84402; 84403; 85027; 83036

== ENCOUNTER 2024-02-04 09:50 | Emergency (ER) | payer OTHER, MEDICARE, SELFPAY ==
[2024-02-04] VITALS (102 sets, daily range): BP systolic 129–194; BP diastolic 61–83; PULSE 53–76; RESP 8–23; TEMP 36; O2SAT 94–100
--- NOTE | 2024-02-04 09:45 | RT.EKG_ITS ---
APPROVED REPORT Exam: Resting ECG Reason for Exam: chest pain Patient Location: E HR:84 bpm ECG Measurements Heart Rate 84 AXIS IL 212 P 55 QRSd 103 QRS 100 QT 391 T -2 QTc 431 Conclusion Sinus rhythm. 84 no stemi
[2024-02-04 10:37] LABS: Abs Immature Grans 0.01 10^3/uL (0.0-0.06); Absolute Basophil Count 0.01 10^3/uL (0.0-0.2); Absolute Eosinophil Count 0.12 10^3/uL (0.0-0.7); Absolute Lymphocyte Count 1.38 10^3/uL (1.2-3.4); Absolute Monocyte Count 0.54 10^3/uL (0.1-0.8); Absolute Neutrophil Count 3.38 10^3/uL (1.2-6.7); Basophils % 0.2; Eosinophils % 2.2; HCT 45.4 % (40.0-50.0); HGB 15.2 g/dL (13.5-17.5); Immature Grans % 0.2; Lymphocytes % 25.4; MCH 29.9 pg (27.0-33.0); MCHC 33.5 % (32.0-36.0); MCV 89 fL (80-95); MPV 9.9 fL (8.0-11.0); Monocytes % 9.9; Neutrophils % 62.1; Platelet Count 166 10^3/uL (130-400); RBC 5.08 10^6/uL (4.36-5.78); RDW 12.8 % (11.8-14.1); RDW-SD 42.2 fL; WBC 5.44 10^3/uL (4.4-10.8)
--- NOTE | 2024-02-04 10:46 | DI.RAD_ITS ---
Exam(s) XR CHEST 2V PA LATERAL EXAM: XR CHEST 2V PA LATERAL CLINICAL HISTORY: chest pain TECHNIQUE: 2D digital imaging was performed. Two views. COMPARISON: CR,XR XR CHEST 2V PA LATERAL from 12/30/2022 FINDINGS: HEART: Normal size. Aorta: Tortuous. PULMONARY VASCULATURE: Normal. LUNGS: Scarring at right lung base, otherwise clear. PLEURAL SPACE: No pleural effusion or pneumothorax. BONE:Unremarkable for age. Soft tissues: Unremarkable. IMPRESSION: No acute abnormality. DATA REPOSITORY: RADIATION DOSE DELIVERED:
--- NOTE | 2024-02-04 10:52 | DI.VRAD_ITS ---
PROCEDURE INFORMATION: Exam: XR Chest Exam date and time: 02/04/2024 10:41 AM Age: 68 years old Clinical indication: Other: Chest pain TECHNIQUE: Imaging protocol: Radiologic exam of the chest. Views: 2 views. COMPARISON: CR XR CHEST 2V PA LATERAL 12/30/2022 6:13 PM FINDINGS: Lungs: Unremarkable. No consolidation. Pleural spaces: Unremarkable. No pleural effusion. No pneumothorax. Heart/Mediastinum: Stable cardiac silhouette Diaphragm: Tenting in the right hemidiaphragm Bones/joints: Unremarkable. IMPRESSION: No focal opacity Dictated and Authenticated by: Nando Benson MD. Ordering:VAUGHN Brooks MD
[2024-02-04 10:58] LABS: ALT 10 U/L (16-63); AST 16 U/L (15-37); Alkaline Phosphatase 65 U/L (46-116); Anion Gap 10.5 mmol/L (3-11); BUN 19 mg/dL (7-18); Bilirubin, Total 0.8 mg/dL (0.2-1.0); CO2 28.5 mmol/L (21.0-32.0); CREATININE 1.1 mg/dL (0.70-1.30); Calcium 8.8 mg/dL (8.5-10.1); Chloride 106 mmol/L (98-107); Estimated GFR 73.12 (mL/min/1.73m2); Glucose 114 mg/dL (74-106); NT-proBNP 58 pg/mL (<300); Potassium 3.8 mmol/L (3.5-5.1); Sodium 145 mmol/L (136-145); Total Protein 6.9 g/dL (6.4-8.2); Troponin I < 50 ng/L (< or =60)
[2024-02-04 14:30] LABS: Troponin I < 50 ng/L (< or =60)
--- NOTE | 2024-02-04 17:06 | ED.GENADUL_ITS ---
Discharge Plan Disposition Patient Disposition: Home Condition: Stable Discharge Details Clinical Impression: Chest pain Primary Care Provider: Sonu Espinosa ED Provider: Ronda Roman Home Meds and New Rx's Prescriptions: No Action albuterol sulfate 90 mcg/actuation HFA aerosol inhaler 2 puff inhalation Q6H PRN trazodone 50 mg tablet 50 mg PO QHS PRN RBU-zcjgvmkliymuz-kysmjko-caff 162 mg-110 mg -152 mg-32.4 mg tablet 2 tab PO Q4H PRN cholecalciferol (vitamin D3) 125 mcg (5,000 unit) capsule 125 mcg PO .2x per week fluticasone propionate 50 mcg/actuation spray,suspension 1 spray intranasal DAILY PRN Rx Instructions: administer into each nostril tadalafil 10 mg tablet 10 mg PO DAILY PRN Rx Instructions: administer approximately 30min before sexual activity; do not use more than 1 dose per 24hrs Glucosamine Chondr Complex capsule PO DAILY ergocalciferol (vitamin D2) 1,250 mcg (50,000 unit) capsule 1,250 mcg PO QWEEK budesonide-formoterol [Symbicort] 160-4.5 mcg/actuation HFA aerosol inhaler 2 puff inhalation BID PRN tacrolimus 0.1 % ointment 1 applic topical DIRECTED triamcinolone acetonide 0.1 % cream 1 applic topical DIRECTED multivitamin [Multi-Day] 1 EACH tablet 1 ea PO DAILY vitamin B complex-folic acid [B Complex 100] 0.4 mg Tablet 1 tab PO DAILY acetaminophen 500 mg tablet 1,000 mg PO Q8H PRN (Reason: pain) Qty: 90 3RF Discharge Instructions Instructions: Chest Pain (ED) Additional Instructions: EKG and lab work today look fine. Please follow-up with your PCP for ongoing symptoms and for outpatient stress testing. Discharge Data Discharge Date/Time-TO BE ENTERED AT DEPARTURE: 02/04/24 14:50 HPI General Date/Time Provider Initiated Documentation: 02/04/24 09:57 . Limitations to Documentation: no limitations . Information obtained by: patient . HPI Narrative: 68-year-old gentleman with past medical history of hypertension presents for evaluation of chest pain. He reports that the symptoms started yesterday. He reports multiple brief episodes of sharp left-sided pain. Pain localized under his left breast, is always in the same spot, does not radiate. Not associated with additional symptoms of diaphoresis, nausea or shortness of breath. He reports that the pain is sharp. Not exacerbated by movement. It is replicated when he touches the area. He denies any recent trauma or activity that may have caused this pain. He reports he has multiple episodes since it started yesterday and each episode lasts less than 30 seconds. Related Data Home Medications Medication Instructions Recorded Confirmed multivitamin (Multi-Day tablet) 1 ea PO DAILY 03/30/13 02/04/24 vitamin B complex-folic acid 0.4 1 tab PO DAILY 12/12/19 02/04/24 mg tablet (B Complex 100) acetaminophen 500 mg tablet 1,000 mg (2 x 500 mg) PO Q8H PRN 01/01/20 02/04/24 pain #90 tabs albuterol sulfate 90 mcg/actuation 2 puff inhalation Q6H PRN 08/21/20 02/04/24 aerosol inhaler tadalafil 10 mg tablet 10 mg PO DAILY PRN 08/17/22 02/04/24 ASA 162 mg-acetaminophen 110 2 tab PO Q4H PRN 11/21/22 02/04/24 mg-salicylate 152 an-lhzhfxts-48.4 mg tab cholecalciferol (vitamin D3) 125 125 mcg PO .2x per week 11/21/22 02/04/24 mcg (5,000 unit) capsule fluticasone propionate 50 1 spray intranasal DAILY PRN 11/21/22 02/04/24 mcg/actuation nasal spray,suspension Glucosamine Chondr Complex PO DAILY 01/05/23 10/03/23 budesonide-formoterol HFA 160 2 puff inhalation BID PRN 01/05/23 02/04/24 mcg-4.5 mcg/actuation aerosol inhaler (Symbicort) ergocalciferol (vitamin D2) 1,250 1,250 mcg PO QWEEK 01/05/23 02/04/24 mcg (50,000 unit) capsule tacrolimus 0.1 % topical ointment 1 applic topical DIRECTED 01/05/23 02/04/24 triamcinolone acetonide 0.1 % 1 applic topical DIRECTED 01/05/23 02/04/24 topical cream trazodone 50 mg tablet 50 mg PO QHS PRN 10/03/23 02/04/24 Previous Rx's Medication Instructions Recorded acetaminophen 500 mg tablet 1,000 mg (2 x 500 mg) PO Q8H PRN 01/01/20 pain #90 tabs Allergies Allergy/AdvReac Type Severity Reaction Status Date / Time diphenhydramine Allergy Severe Other (See Verified 02/04/24 09:57 [From Benadryl] Comment) sertraline Allergy Intermediate Other (See Verified 02/04/24 09:57 Comment) Latex, Natural Rubber Allergy Mild Itching Unverified 02/04/24 09:57 zolpidem [From Ambien] AdvReac Severe Psychosis Verified 02/04/24 09:57 loratadine [From Claritin] AdvReac Intermediate COUGH Unverified 02/04/24 09:57 mirtazapine AdvReac Intermediate Other (See Unverified 02/04/24 09:57 Comment) General Stated Complaint: Chest Pain CASTRO: 2 Exam Narrative Exam Narrative: Review of Systems: All systems reviewed & are unremarkable except as noted in HPI and below Well-developed, no acute distress NCAT PERRL, normal conjunctiva RRR, no murmur Unlabored respiratory effort, clear bilaterally Chest wall tenderness on the left lateral ribs, around T4 Nondistended abdomen Extremities w/o deformity, no cyanosis, no edema No rashes or lesions. no focal neurologic deficits Appropriate mood and affect Course Vital Signs Vital signs: Vital Signs Temperature 36.0 C L 02/04/24 09:53 Pulse 76 02/04/24 09:53 Respiratory Rate 14 02/04/24 09:53 Blood Pressure 194/83 H 02/04/24 09:53 Pulse Oximetry 99 02/04/24 09:53 Temperature 36.0 C L 02/04/24 09:53 Temperature Source Temporal Artery Scan 02/04/24 09:53 Pulse 59 L 02/04/24 14:48 Respiratory Rate 16 02/04/24 14:48 Respiratory Effort Normal, Non-Labored 02/04/24 10:30 Respiratory Depth Normal 02/04/24 10:30 Respiratory Pattern Normal 02/04/24 10:30 Blood Pressure 150/79 H 02/04/24 14:48 Blood Pressure Position Sitting 02/04/24 09:53 Pulse Oximetry 99 02/04/24 14:48 Oxygen Delivery Method Room Air 02/04/24 14:48 Oxygen Flow Rate 0 02/04/24 14:48 Pain Level 0 02/04/24 09:53 Lab/Test Results Lab/Test Results: Laboratory Tests Range/Units 02/04/24 02/04/24 10:25 13:30 WBC (4.4-10.8) 10^3/uL 5.44 RBC (4.36-5.78) 10^6/uL 5.08 Hgb (13.5-17.5) g/dL 15.2 Hct (40.0-50.0) % 45.4 MCV (80-95) fL 89 MCH (27.0-33.0) pg 29.9 MCHC (32.0-36.0) % 33.5 RDW (11.8-14.1) % 12.8 Plt Count (130-400) 10^3/uL 166 MPV (8.0-11.0) fL 9.9 Immature Gran % 0.2 Neutrophils % 62.1 Lymphocytes % 25.4 Monocytes % 9.9 Eosinophils % 2.2 Basophils % 0.2 Nucleated RBC % (0.0-0.3) % 0.0 Absolute Neutrophils (1.2-6.7) 10^3/uL 3.38 Absolute Lymphocytes (1.2-3.4) 10^3/uL 1.38 Absolute Monocytes (0.1-0.8) 10^3/uL 0.54 Absolute Eosinophils (0.0-0.7) 10^3/uL 0.12 Absolute Basophils (0.0-0.2) 10^3/uL 0.01 Sodium (136-145) mmol/L 145 Potassium (3.5-5.1) mmol/L 3.8 Chloride (98-107) mmol/L 106 Carbon Dioxide (21.0-32.0) mmol/L 28.5 Anion Gap (3-11) mmol/L 10.5 BUN (7-18) mg/dL 19 H Creatinine (0.70-1.30) mg/dL 1.1 Est GFR (CKD-EPI 2020) (mL/min/1.73m2) 73.12 Glucose (74-106) mg/dL 114 H Calcium (8.5-10.1) mg/dL 8.8 Total Bilirubin (0.2-1.0) mg/dL 0.8 AST (15-37) U/L 16 ALT (16-63) U/L 10 L Alkaline Phosphatase (46-116) U/L 65 Troponin I (< or =60) ng/L < 50 < 50 NT-Pro-B Natriuret Pep (<300) pg/mL 58 Total Protein (6.4-8.2) g/dL 6.9 Albumin (3.4-5.0) g/dL 4.0 Medical Decision Making Emergent evaluation of chest wall pain. Initial differential includes musculoskeletal pain, rib fracture, ACS less likely, pneumonia or pneumothorax less likely. EKG does not demonstrate acute ischemic changes. The patient is having intermittent symptoms and historically this is not suspicious for ACS. Was hypertensive on arrival, but normalized without intervention. Lab work obtained. No leukocytosis or significant anemia CMP is unremarkable, serial troponins were obtained and these were also unremarkable. Chest x-ray obtained and independently interpreted, no acute process. Given the patient's low risk history and general low risk, the patient can be discharged home to follow-up with PCP and for outpatient stress testing. Return precautions advised. Medical Records Medical records reviewed: Yes I reviewed the patient's medical records. Lab Data Lab results reviewed: Yes I reviewed the patient's lab results. ECG Data Attestation: I personally reviewed and interpreted this ECG (s) as follows: Interpretation: Sinus 84 normal axis occasional PVCs, no STEMI Quality:SDOH Health Related Social Needs: No Data to Display PFSH All Active Problems Chest pain (Acute) Mass of left parotid gland (Acute) Facial paresthesia (Acute) Lumbar radiculopathy (Acute) Pars defect with spondylolisthesis (Acute) Restrictive lung disease (Acute) 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C) (Acute) Standard chest x-ray abnormal (Acute) Prediabetes (Acute) Obesity (Chronic) Hypertension (Chronic) Chest pain, atypical (Acute) Trochanteric bursitis, left hip (Acute) History of total left hip arthroplasty (Acute 12/31/19) Tubular adenoma of colon (Acute) Avascular necrosis of bone of left hip (Acute) s/p L ROSE on 12/31/19 Postoperative anemia due to acute blood loss (Acute) Medical History Abnormal chest x-ray Obesity (BMI 30.0-34.9) Insomnia due to mental condition History of prediabetes Personal history of COVID-19 Back pain with radiculopathy White coat syndrome with diagnosis of hypertension Hearing impairment Asthma, intermittent Allergic rhinitis due to animals H/O adenomatous polyp of colon Hyperlipidemia Vitamin D deficiency Fatigue Psoriasis Reactive depression Anxiety PTSD (post-traumatic stress disorder) Genital herpes Tension headache Exertional dyspnea Memory impairment Right hip pain Erectile dysfunction Detached retina Hx of concussion Hx of dislocation of shoulder Hx of pleural effusion Hx of tuberculosis MULTIPLE CXR CLEARING PT. 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
== END 2024-02-04 14:50 | disposition home or self-care (01) ==
PROVIDERS: Emergency Provider Emergency Medicine; PCP Internal Medicine
DX: R07.9 Chest pain, unspecified (principal); I10 Essential (primary) hypertension; E78.5 Hyperlipidemia, unspecified
CPT/HCPCS: 36415; 80053; 93005; 99285; 71046; 83880; 84484; 85025; 93010; 99284

== ENCOUNTER 2024-04-01 10:21 | Outpatient (REF) | payer OTHER, MEDICARE, SELFPAY ==
[2024-04-01 14:49] LABS: Abs Immature Grans 0.02 10^3/uL (0.0-0.06); Absolute Basophil Count 0.03 10^3/uL (0.0-0.2); Absolute Eosinophil Count 0.16 10^3/uL (0.0-0.7); Absolute Lymphocyte Count 1.78 10^3/uL (1.2-3.4); Absolute Monocyte Count 0.65 10^3/uL (0.1-0.8); Absolute Neutrophil Count 4.55 10^3/uL (1.2-6.7); Basophils % 0.4 %; Eosinophils % 2.2 %; HCT 44.6 % (40.0-50.0); HGB 14.9 g/dL (13.5-17.5); Immature Grans % 0.3 %; Lymphocytes % 24.8 %; MCH 29.9 pg (27.0-33.0); MCHC 33.4 % (32.0-36.0); MCV 90 fL (80-95); MPV 10.2 fL (8.0-11.0); Neutrophils % 63.3 %; Platelet Count 178 10^3/uL (130-400); RBC 4.98 10^6/uL (4.36-5.78); RDW 12.8 % (11.8-14.1); RDW-SD 42.2 fL; WBC 7.19 10^3/uL (4.4-10.8)
[2024-04-01 14:59] LABS: ALT 13 U/L (16-63); AST 14 U/L (15-37); Albumin 4.1 g/dL (3.4-5.0); Alkaline Phosphatase 64 U/L (46-116); Anion Gap 7.1 mmol/L (3-11); BUN 12 mg/dL (7-18); Bilirubin, Total 0.6 mg/dL (0.2-1.0); CO2 28.9 mmol/L (21.0-32.0); CREATININE 1.1 mg/dL (0.70-1.30); Calcium 9.4 mg/dL (8.5-10.1); Chloride 107 mmol/L (98-107); Estimated GFR 73.12 (mL/min/1.73m2); Glucose 104 mg/dL (74-106); Potassium 4.1 mmol/L (3.5-5.1); Sodium 143 mmol/L (136-145); Total Protein 6.9 g/dL (6.4-8.2)
[2024-04-02 11:58] LABS: Lyme Ab w Rflx to Lyme Confirm Negative (Negative)
[2024-04-04 00:28] LABS: Anaplasma phagocytophilum Negative (Negative); B. miyamotoi PCR Negative (Negative); Babesia divergens/MO-1 Negative (Negative); Babesia duncani Negative (Negative); Babesia microti Negative (Negative); Ehrlichia chaffeensis Negative (Negative); Ehrlichia ewingii/canis Negative (Negative); Ehrlichia muris eauclairensis Negative (Negative)
== END 2024-04-01 10:22 | disposition home or self-care (01) ==
LOC: NCHCN 10:21
PROVIDERS: PCP Family Medicine; Visit Provider Family Medicine
DX: R20.2 Paresthesia of skin (principal)
CPT/HCPCS: 80053; 87798; 85025; 86618

== ENCOUNTER 2024-08-05 16:39 | Outpatient (REF) | payer OTHER, MEDICARE, SELFPAY ==
[2024-08-05 14:46] LABS: Abs Immature Grans 0.02 10^3/uL (0.0-0.06); Absolute Basophil Count 0.01 10^3/uL (0.0-0.2); Absolute Lymphocyte Count 1.35 10^3/uL (1.2-3.4); Absolute Monocyte Count 0.44 10^3/uL (0.1-0.8); Absolute Neutrophil Count 3.86 10^3/uL (1.2-6.7); Basophils % 0.2 %; Eosinophils % 1.7 %; HCT 44.4 % (40.0-50.0); HGB 14.7 g/dL (13.5-17.5); Immature Grans % 0.3 %; Lymphocytes % 23.4 %; MCH 30.1 pg (27.0-33.0); MCHC 33.1 % (32.0-36.0); MCV 91 fL (80-95); MPV 10.6 fL (8.0-11.0); Monocytes % 7.6 %; Neutrophils % 66.8 %; Platelet Count 166 10^3/uL (130-400); RBC 4.89 10^6/uL (4.36-5.78); RDW 12.6 % (11.8-14.1); RDW-SD 41.5 fL; WBC 5.78 10^3/uL (4.4-10.8)
[2024-08-05 15:31] LABS: ALT 12 U/L (16-63); AST 18 U/L (15-37); Albumin 3.9 g/dL (3.4-5.0); Alkaline Phosphatase 68 U/L (46-116); Anion Gap 10.9 mmol/L (3-11); BUN 16 mg/dL (7-18); Bilirubin, Total 0.67 mg/dL (0.2-1.0); CO2 28.1 mmol/L (21.0-32.0); CREATININE 1.3 mg/dL (0.70-1.30); Calcium 9.5 mg/dL (8.5-10.1); Chloride 105 mmol/L (98-107); Estimated GFR 59.84 (mL/min/1.73m2); Glucose 133 mg/dL (74-106); Potassium 4.1 mmol/L (3.5-5.1); Sodium 144 mmol/L (136-145); TSH (W/Ref FT4) 0.74 uIU/mL (0.36-3.74); Total Protein 6.6 g/dL (6.4-8.2); Vitamin B12 253 pg/mL (193-986); Vitamin D 25 Total 28.1 ng/mL (30-100)
[2024-08-05 16:15] LABS: Hemoglobin A1C 5.7 % (<5.7)
[2024-08-05 16:30] LABS: Folate 6.1 ng/mL (8.6-20.0)
== END 2024-08-05 16:40 | disposition home or self-care (01) ==
LOC: NCHCN 16:39
PROVIDERS: PCP Family Medicine; Visit Provider Family Medicine
DX: R73.03 Prediabetes (principal); E55.9 Vitamin D deficiency, unspecified; R41.3 Other amnesia
CPT/HCPCS: 80053; 82306; 82607; 82746; 83036; 84443; 85025

== ENCOUNTER 2024-10-14 13:26 | Outpatient (RCR) | payer OTHER, MEDICARE, SELFPAY ==
--- NOTE | 2024-10-17 15:29 | W.HOLTRPT ---
Date of service: 10/17/24 Time of Service: 15:29 Holter Monitor Report Referring Provider:: Marek Griffith Indications:: Palpitations Holter Monitor Note: This is a 48-hour Holter monitor. Predominant rhythm was sinus with an average heart rate of 72. Minimum was 42, maximum 126 There were occasional premature ventricular contractions comprising 3% of total There were frequent atrial premature beats, comprising 14% of total There was no atrial fibrillation, no high-grade AV block, no pauses greater than 3 seconds. Episodes labeled atrial fibrillation were sinus rhythm with very frequent atrial premature beats, and heart rates less than 100 bpm No symptoms were reported
== END 2024-11-12 23:59 | disposition home or self-care (01) ==
LOC: CARDOPNVT 13:26
PROVIDERS: PCP Family Medicine; Visit Provider Internal Medicine Cardiovascular Disease
DX: R00.2 Palpitations (principal); Z51.89 Encounter for other specified aftercare
CPT/HCPCS: 93225; 93226

== ENCOUNTER 2025-02-03 16:25 | Outpatient (CLI) | payer OTHER, MEDICARE, SELFPAY ==
--- NOTE | 2025-02-03 | DI.RAD_ITS ---
Exam(s) XR CHEST 2V PA LATERAL EXAM: XR CHEST 2V PA LATERAL CLINICAL HISTORY: R05.9 Cough, unspecified TECHNIQUE: 2D digital imaging was performed. Two views. COMPARISON: CR,XR XR CHEST 2V PA LATERAL from 02/04/2024 FINDINGS: HEART: Enlarged. Aorta: Mildly tortuous. PULMONARY VASCULATURE: Normal. MEDIASTINUM: Unremarkable. LUNGS: Scarring right lung base, otherwise clear. PLEURAL SPACE: No pleural effusion or pneumothorax. BONE:Unremarkable for age. SOFT TISSUES: Unremarkable. IMPRESSION: No acute abnormality. DATA REPOSITORY: RADIATION DOSE DELIVERED:
== END 2025-02-03 16:45 ==
LOC: DI 16:29
PROVIDERS: PCP Family Medicine; Visit Provider Family Medicine
DX: R05.9 Cough, unspecified (principal)
CPT/HCPCS: 71046

== ENCOUNTER 2025-02-26 10:04 | Outpatient (REF) | payer OTHER, MEDICARE, SELFPAY ==
[2025-02-26 14:35] LABS: Abs Immature Grans 0.01 10^3/uL (0.0-0.06); Absolute Basophil Count 0.02 10^3/uL (0.0-0.2); Absolute Eosinophil Count 0.18 10^3/uL (0.0-0.7); Absolute Monocyte Count 0.55 10^3/uL (0.1-0.8); Absolute Neutrophil Count 3.19 10^3/uL (1.2-6.7); Basophils % 0.4 %; Eosinophils % 3.2 %; HCT 42.9 % (40.0-50.0); HGB 14.2 g/dL (13.5-17.5); Immature Grans % 0.2 %; Lymphocytes % 28.8 %; MCHC 33.1 % (32.0-36.0); MCV 91 fL (80-95); MPV 10.3 fL (8.0-11.0); Monocytes % 9.9 %; Neutrophils % 57.5 %; Platelet Count 177 10^3/uL (130-400); RBC 4.74 10^6/uL (4.36-5.78); RDW 12.9 % (11.8-14.1); WBC 5.55 10^3/uL (4.4-10.8)
[2025-02-26 14:56] LABS: ALT 13 U/L (16-63); AST 18 U/L (15-37); Albumin 3.9 g/dL (3.4-5.0); Alkaline Phosphatase 65 U/L (46-116); Anion Gap 6.5 mmol/L (3-11); BUN 16 mg/dL (7-18); Bilirubin, Total 0.8 mg/dL (0.2-1.0); CO2 31.5 mmol/L (21.0-32.0); CREATININE 1.2 mg/dL (0.70-1.30); Calcium 9.7 mg/dL (8.5-10.1); Chloride 109 mmol/L (98-107); Estimated GFR 65.46 (mL/min/1.73m2); Glucose 97 mg/dL (74-106); Sodium 147 mmol/L (136-145); Total Protein 6.4 g/dL (6.4-8.2)
== END 2025-02-26 10:05 | disposition home or self-care (01) ==
LOC: NCHCN 10:04
PROVIDERS: PCP Family Medicine; Visit Provider Family Medicine
DX: J45.909 Unspecified asthma, uncomplicated (principal)
CPT/HCPCS: 80053; 85025

== ENCOUNTER 2025-04-08 14:11 | Outpatient (REF) | payer OTHER, MEDICARE, SELFPAY ==
[2025-04-08 16:10] LABS: Folate 11.4 ng/mL (8.6-20.0); TSH (W/Ref FT4) 0.88 uIU/mL (0.36-3.74)
[2025-04-23 10:56] LABS: Testosterone, Free 4.92 ng/dL (3.47-13.0); Testosterone, Total 227 ng/dL (240-950)
== END 2025-04-08 14:12 | disposition home or self-care (01) ==
LOC: NCHCN 14:11
PROVIDERS: PCP Family Medicine; Visit Provider Family Medicine
DX: R41.3 Other amnesia (principal)
CPT/HCPCS: 84402; 84403; 82746; 84443

== ENCOUNTER 2025-05-08 17:36 | Outpatient (REF) | payer OTHER, MEDICARE, SELFPAY ==
[2025-05-09 18:37] LABS: PSA, Diagnostic 0.4 ng/mL (<=4.5)
== END 2025-05-08 17:37 | disposition home or self-care (01) ==
LOC: NCHCN 17:36
PROVIDERS: PCP Family Medicine; Visit Provider Family Medicine
DX: R79.89 Other specified abnormal findings of blood chemistry (principal)
CPT/HCPCS: 84153

== ENCOUNTER 2025-07-10 13:48 | Outpatient (CLI) | payer OTHER, MEDICARE, SELFPAY ==
--- NOTE | 2025-07-10 | DI.RAD_ITS ---
Exam(s) XR KNEE RT 3V AP,LAT,ANAMIKA EXAM: XR KNEE RT 3V AP,LAT,ANAMIKA CLINICAL HISTORY: TRAUMATIC EFFUSION OF KNEE JOINT R, M25.469. TECHNIQUE: 2D digital imaging was performed. COMPARISON: No exams were available for comparison FINDINGS: 3 views No evidence of acute fracture but there is a moderate size joint effusion signifying presence of a probable internal derangement. There is mild degenerative narrowing of the medial compartment. No narrowing of the lateral compartment. On the AP view there is a small centrally located 2 millimeter calcific density in the mid joint space. This is either loose intra-articular body or possibly avulsion off the tip of the more lateral of the 2 tibial spines. There is no Segond fragment evident off the lateral tibial plateau. Bone density normal. No osseous lesions. IMPRESSION: Small 2 millimeter calcified density in the mid joint space, possibly loose intra-articular body. Moderate size joint effusion noted. These findings may or may not be related. Consider follow-up MRI for added specificity. DATA REPOSITORY: RADIATION DOSE DELIVERED:
== END 2025-07-10 14:08 ==
LOC: DI 13:49
PROVIDERS: PCP Family Medicine; Visit Provider Family Medicine
DX: M25.561 Pain in right knee (principal); R93.89 Abnormal findings on diagnostic imaging of other specified body structures
CPT/HCPCS: 73562

== ENCOUNTER 2025-08-15 04:15 | Outpatient (CLI) | payer OTHER, MEDICARE, SELFPAY ==
--- NOTE | 2025-08-15 06:15 | DI.MRI_ITS ---
Exam(s) MR LOWER JOINT RT WO EXAM: MR LOWER JOINT RT WO CLINICAL HISTORY: R KNEE PAIN,INTERNAL DERANGEMENT RT KNEE,M23.91 TECHNIQUE: Multiplanar multisequence MRI of the knee was performed. COMPARISON: CR XR KNEE RT 3V AP,LAT,ANAMIKA from 07/10/2025 FINDINGS: EFFUSION: There is a prominent knee joint effusion. There is a Iklpatrick cyst in the medial popliteal fossa which measures approximately 8 cm in craniocaudal length, 1 cm AP and less than 1 cm wide. It has internal aspect contains some septations. MARROW:There is no evidence of fracture, prominent bone contusion, nor osteochondral defects.. There are no significant osseous lesions. PATELLOFEMORAL COMPARTMENT: The quadriceps tendon is intact. The patellar ligament is intact. There is significant thinning of the retropatellar cartilage over the medial facet and there is some degenerative subarticular edema in the posterior patella over the medial facet. The retropatellar cartilage over the lateral facet is preserved and there is no abnormal intraosseous signal in the lateral half of the patella.There is no intraosseous signal to suggest recent patellar dislocation. There are no patellar retinacular tears. CRUCIATE LIGAMENTS: The anterior cruciate ligament is intact.The posterior cruciate ligament is intact. MEDIAL COMPARTMENT/MEDIAL MENISCUS: There is a small surface tear on the superior aspect of the posterior horn of the medial meniscus at the junction of the lateral and mid thirds. There is no bucket-handle configuration. The meniscal root is intact. There is no meniscocapsular separation. This focal tear violates the superior articular surface of the meniscus but does not extend to the inferior articular surface. There are no tears of the anterior horn of the medial meniscus.. There is significant chondromalacia thinning of the articular cartilage over the medial femoral condyle main weight-bearing surface with some mild subarticular edema in the medial condyle. There are no distinct osteochondral defects. There is also a an area of focal cartilage thinning and subarticular edema slightly more anteriorly in the medial condyle which is most probably related to the chondromalacia patella described above in the medial aspect of the patellofemoral compartment. There are small marginal osteophytes off the outer aspect of the medial condyle. There does not appear to be significant cartilage thinning over the medial tibial plateau nor subarticular edema in the medial tibial plateau. MEDIAL COLLATERAL LIGAMENT: No high-grade tear but there is significant fluid signal between the deep and superficial layers of the medial collateral ligament. Also noted is some septated fluid signal between the medial tibial metaphysis and the pes anserine tendons consistent with an element of pes anserine bursitis. This thin septated fluid measures approximately 3.3 cm craniocaudal by 0.7 cm largest AP measurement by 0.5 cm largest width measurement. There is no abnormal intraosseous signal in the adjacent medial aspect of the tibia at this level. LATERAL COMPARTMENT/LATERAL MENISCUS: There is no evidence of lateral meniscal tear.However, there is a small full-thickness chondral defectover the main weight-bearing surface of the lateral femoral condyle, this measuring 4 mm wide by 4 mm AP but without subjacent abnormal bone signal. No other chondral defects in the lateral compartment. No subarticular bone edema of in the lateral condyle nor in the lateral tibial plateau and there are no osteophytes in the lateral compartment. ILIOTIBIAL BAND: Intact LATERAL COLLATERAL LIGAMENT COMPLEX: The fibular collateral ligament is intact. The biceps femoris tendon is intact.Popliteus muscle and tendon are intact. IMPRESSION: 1. There is a small focal superior surface tear at the junction of the lateral and mid thirds of the posterior horn of the medial meniscus. The meniscal root is intact. The anterior horn of the medial meniscus is intact. There is moderate-advanced thinning of the articular cartilage over the main weight- bearing surface of the medial femoral condyle with some mild multifocal subarticular bone edema distinct osteochondral defects. Small marginal osteophyte in the medial compartment noted 2. There is significant thinning of the retropatellar cartilage over the medial facet with subjacent edema in the posterior patella and there is also a corresponding focal area of cartilage thinning and subarticular edema in the medial femoral condylar trochlea in this region. There are no discernible osteochondral defects in this region. 3. Although there is no high-grade tear of the medial collateral ligament there is sliver of fluid signal interposed between the deep and superficial layers of the MCL. There is also a separate septated collection (measurements as above) interposed between the medial tibial metaphysis and pes anserine tendons consistent with pes anserine bursitis. 4. There is a small but the chondral defect over the main weight-bearing surface of the lateral femoral condyle measuring 4 mm wide by 4 mm AP, not associated with subarticular edema nor osteochondral defect. There is no obvious tear of the lateral meniscus. 5. All 3 components of the lateral collateral ligament complex appear unremarkable. 6. There are no cruciate ligament tears. 7. There is a prominent joint effusion and there is a partially septated Kilpatrick cyst in the medial popliteal fossa which measures 8 cm in craniocaudal length. DATA REPOSITORY:
== END 2025-08-15 04:35 ==
PROVIDERS: PCP Family Medicine; Visit Provider Student in an Organized Health Care Education/Training Program
DX: S83.241A Other tear of medial meniscus, current injury, right knee, initial encounter (principal); X58.XXXA Exposure to other specified factors, initial encounter
CPT/HCPCS: 73721

== ENCOUNTER 2025-08-25 09:44 | Outpatient (REF) | payer OTHER, MEDICARE, SELFPAY ==
[2025-08-30 15:29] LABS: Testosterone, Free 20.5 pg/mL (35.0-155.0)
== END 2025-08-25 09:45 | disposition home or self-care (01) ==
LOC: NCHCN 09:44
PROVIDERS: PCP Family Medicine; Visit Provider Family Medicine
DX: R79.89 Other specified abnormal findings of blood chemistry (principal)
CPT/HCPCS: 84402; 84403

== ENCOUNTER → 2025-09-25 02:29 | Outpatient (CLI) | payer OTHER, MEDICARE, SELFPAY ==
--- NOTE | 2025-09-25 | DI.MRI_ITS ---
Exam(s) MR BRAIN WO EXAM: MR BRAIN WO CLINICAL HISTORY: ALTERED MENTAL STATE R41.82 MEMORY CHANGES R41.3 EXECUTIVE FUNCTION DEFICIT TECHNIQUE: Multiplanar multisequence MRI of the brain was performed. COMPARISON: CT CT HEAD WO from 04/05/2024 FINDINGS: CEREBRAL PARENCHYMA: There is no evidence of intracranial hemorrhage, mass effect, or shift of midline structures. There are no extra-axial fluid collections. Ventricles are not enlarged or shifted. No evidence of cerebellar tonsillar ectopia. There is no significant focal signal abnormality in the cerebellar hemispheres nor within the rk, midbrain, and thalami. There is a mild bilateral periventricular signal abnormality consistent chronic small vessel disease. No evidence of restricted diffusion on DWI imaging. SWI imaging reveals no evidence microhemorrhages. PITUITARY GLAND: No mass nor parasellar abnormality. No obvious abnormality in the cavernous sinuses. FLOW VOIDS: The expected flow void are noted. No evidence of obvious aneurysm nor obvious vascular malformation. PARANASAL SINUSES: The visualized paranasal sinuses appear unremarkable. No obvious finding ORBITS: No obvious findings. IMPRESSION: No significant acute intracranial findings on this noninfused MRI scan of the brain. There is mild bilateral periventricular signal abnormality consistent with chronic small vessel disease. No evidence of acute nor subacute infarct. DATA REPOSITORY:
== END ==
LOC: DI 02:29
PROVIDERS: PCP Family Medicine; Visit Provider Nurse Practitioner Primary Care
DX: R41.82 Altered mental status, unspecified (principal); R41.3 Other amnesia; R41.844 Frontal lobe and executive function deficit; R26.89 Other abnormalities of gait and mobility; I67.82 Cerebral ischemia
CPT/HCPCS: 70551

== ENCOUNTER 2025-10-05 19:16 | Emergency (ER) | payer OTHER, MEDICARE, SELFPAY ==
[2025-10-05] VITALS (13 sets, daily range): BP systolic 134–160; BP diastolic 56–83; PULSE 57–87; RESP 0–23; TEMP 37.2–38.4; O2SAT 93–97
--- NOTE | 2025-10-05 19:15 | DI.RAD_ITS ---
Exam(s) XR CHEST 2V PA LATERAL EXAM: XR CHEST 2V PA LATERAL CLINICAL HISTORY: SOB, fever TECHNIQUE: 2D digital imaging was performed of the chest. Three images were obtained. AP and lateral views were obtained. COMPARISON: CR,XR XR CHEST 2V PA LATERAL from 02/04/2024 CR XR CHEST 2V PA LATERAL from 02/03/2025 FINDINGS: MEDIASTINUM: Normal. HEART: Normal. PULMONARY VASCULATURE: Normal. LUNGS: Unchanged scarring in the right lung base. There are no focal consolidating infiltrates present. PLEURAL SPACE: There is mild stable blunting of the right costophrenic angle which may reflect scarring. Tiny effusion cannot be excluded. There is no left pleural effusion. There is no pneumothorax. BONE:Within normal limits for the patient's age. OTHER FINDINGS:Normal. IMPRESSION: 1. No acute pulmonary findings. 2. The preliminary [facility] report was reviewed. DATA REPOSITORY: RADIATION DOSE DELIVERED:
--- NOTE | 2025-10-05 19:15 | RT.EKG_ITS ---
APPROVED REPORT Exam: Resting ECG Reason for Exam: dyspnea Patient Location: E HR:87 bpm ECG Measurements Heart Rate 87 AXIS NE 180 P 15 QRSd 102 QRS 126 QT 358 T -15 QTc 425 Conclusion Sinus rhythm...normal P axis, V-rate 60- 99 Probable left atrial enlargement...P >50mS, <-0.10mV V1 No STEMI
[2025-10-05 19:49] LABS: BE (Venous) 4 mmol/L (-2-3); HCO3 (Venous) 29 mmol/L (23-28); O2 Sat (Venous) 44 %; TCO2 (Venous) 26 mmol/L (24-29); pCO2 (Venous) 50 mmHg (41-51); pO2 (Venous) 26 mmHg
[2025-10-05 19:50] LABS: Abs Immature Grans 0.02 10^3/uL (0.0-0.06); HCT 49.1 % (40.0-50.0); HGB 16.3 g/dL (13.5-17.5); Immature Grans % 0.2 %; MCH 29.4 pg (27.0-33.0); MCHC 33.2 % (32.0-36.0); MCV 89 fL (80-95); MPV 9.4 fL (8.0-11.0); Platelet Count 160 10^3/uL (130-400); RBC 5.55 10^6/uL (4.36-5.78); RDW 12.9 % (11.8-14.1); RDW-SD 42.0 fL; WBC 8.95 10^3/uL (4.4-10.8)
[2025-10-05] MEDS: Ondansetron 4 MG/2 ML VIAL IVP (20:00)
[2025-10-05] MEDS: ACETAMINOPHEN 1,000 MG/100 ML BAG 400 MG IVPB (20:00)
[2025-10-05] MEDS: Normal Saline 1,000 ML 1000 ML IV (20:01)
[2025-10-05 20:11] LABS: COVID-19 PCR Negative (Negative); RSV PCR Negative (Negative)
[2025-10-05 20:13] LABS: Magnesium 1.8 mg/dL (1.6-2.6)
[2025-10-05 20:14] LABS: ALT < 7 U/L (10-49); AST 23 U/L (<34); Albumin 4.6 g/dL (3.4-5.0); Alkaline Phosphatase 65 U/L (46-116); Anion Gap 8.2 mmol/L (3-11); BUN 19 mg/dL (9-23); Bilirubin, Total 1.30 mg/dL (0.2-1.2); CO2 28.8 mmol/L (20.0-31.0); Calcium 8.8 mg/dL (8.3-10.6); Chloride 104 mmol/L (98-107); Glucose 106 mg/dL (74-106); Potassium 4.1 mmol/L (3.5-5.1); Sodium 141 mmol/L (136-145); Total Protein 7.2 g/dL (5.7-8.2); Troponin I < 3 ng/L (<54)
[2025-10-05] MEDS: Ipratropium HFA 12.9 GM 200 PUFF INH IH (21:23)
--- NOTE | 2025-10-05 21:24 | DI.[facility]_ITS ---
PROCEDURE INFORMATION: Exam: XR Chest Exam date and time: 10/05/2025 8:25 PM Age: 70 years old Clinical indication: Fever and shortness of breath TECHNIQUE: Imaging protocol: Radiologic exam of the chest. Views: 2 views. COMPARISON: CR XR CHEST 2V PA LATERAL 02/03/2025 5:12 PM FINDINGS: Lungs: Unremarkable. No consolidation. Pleural spaces: Probable minimal right pleural effusion overall unchanged from prior study. Heart/Mediastinum: No change cardiomegaly. Vasculature: Aortic ectasia again seen. Bones/joints: Unremarkable. Soft tissues: There is some overlying chin artifact. IMPRESSION: Probable small right pleural effusion. Dictated and Authenticated by: Francine Brock MD. Orderin Germania Cruz MD
[2025-10-05 21:33] LABS: Troponin I < 3 ng/L (<54)
--- NOTE | 2025-10-05 21:43 | W.ED.GENAD ---
Discharge Plan Disposition Patient Disposition: Home Discharge Details Clinical Impression: Fever, Cough, Chronic confusion Primary Care Provider: Marek Griffith ED Provider: Anthony Solo Home Meds and New Rx's Prescriptions: No Action albuterol sulfate 90 mcg/actuation HFA aerosol inhaler 2 puff inhalation Q6H PRN trazodone 50 mg tablet 50 mg PO QHS PRN fluticasone propionate 50 mcg/actuation spray,suspension 1 spray intranasal DAILY PRN Rx Instructions: administer into each nostril testosterone cypionate 100 mg/mL oil 100 mg IM Q2W ibuprofen 600 mg tablet 600 mg PO Q8H PRN alprazolam [Xanax] 0.5 mg tablet 0.5 mg PO ONCE PRN (Reason: Claustrophobia) Qty: 2 0RF Rx Instructions: Take 1 60 minutes prior to MRI. May take an additional 1 if still anxious 30 minutes prior to MRI. Glucosamine Chondr Complex capsule 125 mg PO DAILY tacrolimus 0.1 % ointment 1 applic topical DIRECTED Discharge Instructions Instructions: Cough in adults, Fever, Adult (DC) Additional Instructions: As discussed, we did not find an exact diagnosis as the cause of your underlying fever and cough, however most suspicious for a respiratory virus. With that said, if you are feeling worse, becoming more confused, persistent fevers, shortness of breath or develop pain or vomiting, please return to the emergency department for further evaluation. Please also take your supplied ipratropium inhaler, you can do 2 puffs 4 times a day. I would also recommend Tylenol and ibuprofen to help manage your fever. Please follow-up with your primary care provider regarding your visit to the emergency department today. Be sure to discuss results of all test performed here today to include radiology, and laboratory testing as well as results for any pending cultures. Should your symptoms worsen, or if you develop new concerning symptoms, please return immediately emergency department for further evaluation. Stand Alone Forms: Portal Information HPI General Date/Time Provider Initiated Documentation: 10/05/25 19:25. HPI Narrative: MDM/Narrative: 70-year-old male with a past medical history of remote CVA with chronic right-sided pleural effusion, presents for evaluation of fever, cough and worsening of his baseline confusion as per his . Vital signs notable for fever and tachypnea. As patient is meeting SIRS criteria will evaluate for source of infection via chest x-ray, blood testing and urinalysis. ED course: Following ministration of IV fluids, ipratropium for cough suppression and IV Tylenol, patient states that he feels much better. However patient remains persistently febrile, reassuringly though his laboratory results are all within normal limits, no leukocytosis, no neutrophilic predominance, no lactic acid elevation, no organ dysfunction noted on CMP to suggest acute life-threatening pathology. Plan of care discussed with the patient and his who are agreeable to plan for discharge follow-up primary care to return to emergency department for any new or worsening symptoms. Disposition: Home HPI: 70-year-old male with a past medical history of chronic mild confusion, remote history of TB with chronic right-sided pleural effusion, presents for evaluation of fever, malaise, runny nose, and cough which began yesterday. Denies any associated chest pain, Master pain however he does note nausea. Denies any diarrhea, dysuria or any other new or concerning symptoms. ROS: Negative besides as mentioned above Exam: Gen: A&O NAD, frequently coughing HEENT: NCAT, EOMI, not icteric. External ears normal. No rhinorrhea. Moist mucous membranes. Neck: Supple, full range of motion, no observable masses, No meningeal sign. Lungs: No Respiratory distress. CV: RRR, no edema. Abdomen: Soft, nondistended, No rebound tenderness. MSK: No joint swelling, no redness. Skin: No rashes, petechiae, lesions. Normal color per patient. Neuro: Normal Gait, Grossly intact. Psych: Appropriate for situation. Rhythm: NSR Rate: 87 [place]: Normal axis Intervals: Normal intervals Other findings: PVCs. No acute ST segment or T wave changes to suggest acute ischemia. Labs: 10/05/25 21:04 Blood Blood Culture - Pending 10/05/25 19:54 Blood Blood Culture - Pending Laboratory Tests Range/Units 10/05/25 10/05/25 10/05/25 19:27 19:45 19:48 WBC (4.4-10.8) 10^3/uL 8.95 RBC (4.36-5.78) 10^6/uL 5.55 Hgb (13.5-17.5) g/dL 16.3 Hct (40.0-50.0) % 49.1 MCV (80-95) fL 89 MCH (27.0-33.0) pg 29.4 MCHC (32.0-36.0) % 33.2 RDW (11.8-14.1) % 12.9 Plt Count (130-400) 10^3/uL 160 MPV (8.0-11.0) fL 9.4 Immature Gran % % 0.2 Neutrophils % % 79.9 Lymphocytes % % 10.9 Monocytes % % 8.8 Eosinophils % % 0.1 Basophils % % 0.1 Nucleated RBC % (0.0-0.3) % 0.0 Absolute Neutrophils (1.2-6.7) 10^3/uL 7.14 H Absolute Lymphocytes (1.2-3.4) 10^3/uL 0.98 L Absolute Monocytes (0.1-0.8) 10^3/uL 0.79 Absolute Eosinophils (0.0-0.7) 10^3/uL 0.01 Absolute Basophils (0.0-0.2) 10^3/uL 0.01 VBG pH (7.31-7.41) 7.37 VBG pCO2 (41-51) mmHg 50 VBG pO2 mmHg 26 VBG HCO3 (23-28) mmol/L 29 H VBG Total CO2 (24-29) mmol/L 26 VBG O2 Saturation % 44 VBG Base Excess (-2-3) mmol/L 4 H VBG Lactate (<or=2.0) mmol/L 1.2 Sodium (136-145) mmol/L 141 Potassium (3.5-5.1) mmol/L 4.1 Chloride (98-107) mmol/L 104 Carbon Dioxide (20.0-31.0) mmol/L 28.8 Anion Gap (3-11) mmol/L 8.2 BUN (9-23) mg/dL 19 Creatinine (0.73-1.18) mg/dL 1.28 H Est GFR (CKD-EPI 2020) (mL/min/1.73m2) 55.55 Glucose (74-106) mg/dL 106 Calcium (8.3-10.6) mg/dL 8.8 Magnesium (1.6-2.6) mg/dL 1.8 Total Bilirubin (0.2-1.2) mg/dL 1.30 H AST (<34) U/L 23 ALT (10-49) U/L < 7 L Alkaline Phosphatase (46-116) U/L 65 Troponin I (<54) ng/L < 3 NT-Pro-B Natriuret Pep (<300) pg/mL 74 Total Protein (5.7-8.2) g/dL 7.2 Albumin (3.4-5.0) g/dL 4.6 Urine Color (Yellow) Yellow Urine Clarity (Clear) Clear Urine pH (5-8) 7.0 Ur Specific [place] (1.005-1.025) 1.020 Urine Protein (Neg-Trace) mg/dL 30 H Urine Ketones (Negative) mg/dL Negative Urine Blood (Negative) Negative Urine Nitrite (Negative) Negative Urine Bilirubin (Negative) Negative Urine Urobilinogen (Up to 0.2) mg/dL 1.0 H Ur Leukocyte Esterase (Negative) Negative Urine RBC (0-2) HPF 0-2 Urine WBC (0-5) HPF Negative Ur Epithelial Cells (Negative) HPF Negative Urine Crystals (Negative) HPF Negative Urine Bacteria (Negative) HPF Rare Urine Casts (Negative) LPF Negative Urine Mucus (Negative) Moderate Ur Culture Indicated? No Urine Glucose (Negative) mg/dL Negative COVID-19 Source Nasopharynx SARS-CoV-2 (PCR) (Negative) Negative Influenza Type A (PCR) (Negative) Negative Influenza Type B (PCR) (Negative) Negative RSV (PCR) (Negative) Negative Range/Units 10/05/25 21:04 WBC (4.4-10.8) 10^3/uL RBC (4.36-5.78) 10^6/uL Hgb (13.5-17.5) g/dL Hct (40.0-50.0) % MCV (80-95) fL MCH (27.0-33.0) pg MCHC (32.0-36.0) % RDW (11.8-14.1) % Plt Count (130-400) 10^3/uL MPV (8.0-11.0) fL Immature Gran % % Neutrophils % % Lymphocytes % % Monocytes % % Eosinophils % % Basophils % % Nucleated RBC % (0.0-0.3) % Absolute Neutrophils (1.2-6.7) 10^3/uL Absolute Lymphocytes (1.2-3.4) 10^3/uL Absolute Monocytes (0.1-0.8) 10^3/uL Absolute Eosinophils (0.0-0.7) 10^3/uL Absolute Basophils (0.0-0.2) 10^3/uL VBG pH (7.31-7.41) VBG pCO2 (41-51) mmHg VBG pO2 mmHg VBG HCO3 (23-28) mmol/L VBG Total CO2 (24-29) mmol/L VBG O2 Saturation % VBG Base Excess (-2-3) mmol/L VBG Lactate (<or=2.0) mmol/L Sodium (136-145) mmol/L Potassium (3.5-5.1) mmol/L Chloride (98-107) mmol/L Carbon Dioxide (20.0-31.0) mmol/L Anion Gap (3-11) mmol/L BUN (9-23) mg/dL Creatinine (0.73-1.18) mg/dL Est GFR (CKD-EPI 2020) (mL/min/1.73m2) Glucose (74-106) mg/dL Calcium (8.3-10.6) mg/dL Magnesium (1.6-2.6) mg/dL Total Bilirubin (0.2-1.2) mg/dL AST (<34) U/L ALT (10-49) U/L Alkaline Phosphatase (46-116) U/L Troponin I (<54) ng/L < 3 NT-Pro-B Natriuret Pep (<300) pg/mL Total Protein (5.7-8.2) g/dL Albumin (3.4-5.0) g/dL Urine Color (Yellow) Urine Clarity (Clear) Urine pH (5-8) Ur Specific [place] (1.005-1.025) Urine Protein (Neg-Trace) mg/dL Urine Ketones (Negative) mg/dL Urine Blood (Negative) Urine Nitrite (Negative) Urine Bilirubin (Negative) Urine Urobilinogen (Up to 0.2) mg/dL Ur Leukocyte Esterase (Negative) Urine RBC (0-2) HPF Urine WBC (0-5) HPF Ur Epithelial Cells (Negative) HPF Urine Crystals (Negative) HPF Urine Bacteria (Negative) HPF Urine Casts (Negative) LPF Urine Mucus (Negative) Ur Culture Indicated? Urine Glucose (Negative) mg/dL COVID-19 Source SARS-CoV-2 (PCR) (Negative) Influenza Type A (PCR) (Negative) Influenza Type B (PCR) (Negative) RSV (PCR) (Negative) Radiology: PROCEDURE INFORMATION: Exam: XR Chest Exam date and time: 10/05/2025 8:25 PM Age: 70 years old Clinical indication: Fever and shortness of breath TECHNIQUE: Imaging protocol: Radiologic exam of the chest. Views: 2 views. COMPARISON: CR XR CHEST 2V PA LATERAL 02/03/2025 5:12 PM FINDINGS: Lungs: Unremarkable. No consolidation. Pleural spaces: Probable minimal right pleural effusion overall unchanged from prior study. Heart/Mediastinum: No change cardiomegaly. Vasculature: Aortic ectasia again seen. Bones/joints: Unremarkable. Soft tissues: There is some overlying chin artifact. IMPRESSION: Probable small right pleural effusion. Thank you for allowing us to participate in the care of your patient. Dictated and Authenticated by: Francine Brock MD Related Data Home Medications Medication Instructions Recorded Confirmed albuterol sulfate 90 mcg/actuation 2 puff inhalation Q6H PRN 08/21/20 10/05/25 aerosol inhaler fluticasone propionate 50 1 spray intranasal DAILY PRN 11/21/22 10/05/25 mcg/actuation nasal spray,suspension Glucosamine Chondr Complex 125 mg PO DAILY 01/05/23 10/05/25 tacrolimus 0.1 % topical ointment 1 applic topical DIRECTED 01/05/23 10/05/25 trazodone 50 mg tablet 50 mg PO QHS PRN 10/03/23 10/05/25 ibuprofen 600 mg tablet 600 mg PO Q8H PRN 07/28/25 10/05/25 testosterone cypionate 100 mg/mL 100 mg IM Q2W 07/28/25 10/05/25 intramuscular oil alprazolam 0.5 mg tablet (Xanax) 0.5 mg PO ONCE PRN Claustrophobia 07/30/25 10/05/25 #2 tabs Previous Rx's Medication Instructions Recorded alprazolam 0.5 mg tablet (Xanax) 0.5 mg PO ONCE PRN Claustrophobia 07/30/25 #2 tabs Allergies Allergy/AdvReac Type Severity Reaction Status Date / Time diphenhydramine (From Allergy Severe Other (See Verified 10/05/25 19:24 Benadryl) Comment) sertraline Allergy Intermediate Other (See Verified 10/05/25 19:24 Comment) Latex, Natural Rubber Allergy Mild Itching Verified 10/05/25 19:24 zolpidem (From Ambien) AdvReac Severe Psychosis Verified 10/05/25 19:24 bupropion AdvReac Intermediate Other (See Verified 10/05/25 19:24 Comment) loratadine (From Claritin) AdvReac Intermediate COUGH Verified 10/05/25 19:24 mirtazapine AdvReac Intermediate Other (See Verified 10/05/25 19:24 Comment) General Stated Complaint: [facility]Medical CASTRO: 3 Course Vital Signs Vital signs: Vital Signs Temperature 38.4 C H 10/05/25 19:18 Pulse 78 10/05/25 19:18 Respiratory Rate 20 10/05/25 19:18 Blood Pressure 160/83 H 10/05/25 19:18 Pulse Oximetry 94 10/05/25 19:18 Temperature 38.4 C H 10/05/25 19:56 Temperature Source Temporal Artery Scan 10/05/25 19:56 Pulse 74 10/05/25 21:20 Pulse 73 10/05/25 21:31 Respiratory Rate 15 10/05/25 21:31 Respiratory Effort Normal 10/05/25 20:14 Blood Pressure 134/59 L 10/05/25 21:31 Blood Pressure Mean 83 10/05/25 21:31 Pulse Oximetry 96 10/05/25 21:31 Oxygen Delivery Method Room Air 10/05/25 19:56 Oxygen Flow Rate 0 10/05/25 19:56 Lab/Test Results Lab/Test Results: 10/05/25 21:04 Blood Blood Culture - Pending 10/05/25 19:54 Blood Blood Culture - Pending Laboratory Tests Range/Units 10/05/25 10/05/25 10/05/25 19:27 19:45 21:04 WBC (4.4-10.8) 10^3/uL 8.95 RBC (4.36-5.78) 10^6/uL 5.55 Hgb (13.5-17.5) g/dL 16.3 Hct (40.0-50.0) % 49.1 MCV (80-95) fL 89 MCH (27.0-33.0) pg 29.4 MCHC (32.0-36.0) % 33.2 RDW (11.8-14.1) % 12.9 Plt Count (130-400) 10^3/uL 160 MPV (8.0-11.0) fL 9.4 Immature Gran % % 0.2 Neutrophils % % 79.9 Lymphocytes % % 10.9 Monocytes % % 8.8 Eosinophils % % 0.1 Basophils % % 0.1 Nucleated RBC % (0.0-0.3) % 0.0 Absolute Neutrophils (1.2-6.7) 10^3/uL 7.14 H Absolute Lymphocytes (1.2-3.4) 10^3/uL 0.98 L Absolute Monocytes (0.1-0.8) 10^3/uL 0.79 Absolute Eosinophils (0.0-0.7) 10^3/uL 0.01 Absolute Basophils (0.0-0.2) 10^3/uL 0.01 VBG pH (7.31-7.41) 7.37 VBG pCO2 (41-51) mmHg 50 VBG pO2 mmHg 26 VBG HCO3 (23-28) mmol/L 29 H VBG Total CO2 (24-29) mmol/L 26 VBG O2 Saturation % 44 VBG Base Excess (-2-3) mmol/L 4 H VBG Lactate (<or=2.0) mmol/L 1.2 Sodium (136-145) mmol/L 141 Potassium (3.5-5.1) mmol/L 4.1 Chloride (98-107) mmol/L 104 Carbon Dioxide (20.0-31.0) mmol/L 28.8 Anion Gap (3-11) mmol/L 8.2 BUN (9-23) mg/dL 19 Creatinine (0.73-1.18) mg/dL 1.28 H Est GFR (CKD-EPI 2020) (mL/min/1.73m2) 55.55 Glucose (74-106) mg/dL 106 Calcium (8.3-10.6) mg/dL 8.8 Magnesium (1.6-2.6) mg/dL 1.8 Total Bilirubin (0.2-1.2) mg/dL 1.30 H AST (<34) U/L 23 ALT (10-49) U/L < 7 L Alkaline Phosphatase (46-116) U/L 65 Troponin I (<54) ng/L < 3 < 3 NT-Pro-B Natriuret Pep (<300) pg/mL 74 Total Protein (5.7-8.2) g/dL 7.2 Albumin (3.4-5.0) g/dL 4.6 COVID-19 Source Nasopharynx SARS-CoV-2 (PCR) (Negative) Negative Influenza Type A (PCR) (Negative) Negative Influenza Type B (PCR) (Negative) Negative RSV (PCR) (Negative) Negative PFSH All Active Problems (Updated 10/05/25 @ 22:11 by Anthony Solo MD) Chronic confusion (Acute) Cough (Acute) Fever (Acute) Tear of medial meniscus of left knee (Acute) Arthritis of left knee (Acute) Internal derangement of left knee (Acute) Left medial knee pain (Acute) Mass of left parotid gland (Acute) Facial paresthesia (Acute) Lumbar radiculopathy (Acute) Pars defect with spondylolisthesis (Acute) Restrictive lung disease (Acute) 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C) (Acute) Standard chest x-ray abnormal (Acute) Prediabetes (Acute) Obesity (Chronic) Hypertension (Chronic) Chest pain, atypical (Acute) Trochanteric bursitis, left hip (Acute) History of total left hip arthroplasty (Acute 12/31/19) Tubular adenoma of colon (Acute) Avascular necrosis of bone of left hip (Acute) s/p L ROSE on 12/31/19 Postoperative anemia due to acute blood loss (Acute) Medical History (Updated 10/05/25 @ 22:11 by Anthony Solo MD) Internal derangement of right knee Abnormal chest x-ray Obesity (BMI 30.0-34.9) Insomnia due to mental condition History of prediabetes Personal history of COVID-19 Back pain with radiculopathy White coat syndrome with diagnosis of hypertension Hearing impairment Asthma, intermittent Allergic rhinitis due to animals H/O adenomatous polyp of colon Hyperlipidemia Vitamin D deficiency Fatigue Psoriasis Reactive depression Anxiety PTSD (post-traumatic stress disorder) Genital herpes Tension headache Exertional dyspnea Memory impairment Right hip pain Erectile dysfunction Detached retina Hx of concussion Hx of dislocation of shoulder Hx of pleural effusion Hx of tuberculosis MULTIPLE CXR CLEARING PT. 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
[2025-10-05 21:44] LABS: Glucose Negative (Negative)
[2025-10-05 21:50] LABS: C & S Indicated? No; RBC 0-2 HPF (0-2); WBC Negative HPF (0-5)
== END 2025-10-05 22:21 | disposition home or self-care (01) ==
PROVIDERS: Emergency Provider General Practice; PCP Family Medicine
DX: R50.9 Fever, unspecified (principal); R05.9 Cough, unspecified; R41.82 Altered mental status, unspecified
CPT/HCPCS: 99283; 99285; 36415; 96375; 80053; 82805; 87040; 87637; 93005; 96365; 96366; 71046; 81003; 81015; 83605; 83735; 83880; 84484; 85025; 93010; J0131; J2405

== ENCOUNTER 2025-11-06 12:59 | Emergency (ER) | payer OTHER, MEDICARE, SELFPAY ==
[2025-11-06 13:07] VITALS: BP 138/83; PULSE 79; RESP 16; TEMP 37.1; O2SAT 98
--- NOTE | 2025-11-06 13:15 | DI.CT_ITS ---
Exam(s) CT LUMBAR SPINE WO EXAM: CT LUMBAR SPINE WO CLINICAL HISTORY: lower back pain radiating to left hip. TECHNIQUE: Imaging Protocol: Axial computed tomography images with coronal and sagittal reformatted images were created and reviewed COMPARISON: No exams were available for comparison FINDINGS: Bones: There are no acute appearing fractures. No significant osseous lesions. No significant scoliosis. INDIVIDUAL LEVELS: T12-L1:No disc herniation nor canal stenosis. Facet joints unremarkable. No foraminal stenosis. L1-2: There is chronic advanced disc space narrowing at this level and vacuum phenomena M within the disc space is evident. There is symmetrical posterior annular bulging without a dominant disc herniation. Central canal dimensions are lower normal for this age group. Facet joints unremarkable. No significant foraminal stenosis. L2-3: Preserved disc height. Symmetrical annular bulging without a dominant disc herniation. Mild central canal stenosis which is related to short AP dimensions of the pedicles and annular bulging. Facet joints appear unremarkable. No significant foraminal stenosis. L3-4: This level exhibits moderate uniform disc space narrowing. There is also mild degenerative anterolisthesis of L3 upon L4 related to facet arthropathy. There is moderate-severe central spinal canal stenosis at this level. Annular bulging related to the listhesis but no dominant disc herniation. There is advanced bilateral facet arthropathy evident. No pars defects. There is significant bilateral foraminal stenosis due to the disc height loss and listhesis. L4-5: This level exhibits preserved disc height. There is broad annular bulging. Mild central spinal canal stenosis. There is mild degenerative change in the facet joints. There is significant foraminal stenosis on the left side at this level. Slightly milder foraminal stenosis on the right side at this level. L5-S1: This level exhibits mild-moderate disc space narrowing. There is 1 cm anterolisthesis L5 upon S1 related to bilateral pars defects at this level. There is typical pseudo herniation of the annulus but no dominant disc herniation. Central canal dimensions are within normal limits. There is mild bilateral facet arthropathy. There is significant bilateral foraminal stenosis with impingement of the exiting nerve roots bilaterally between the and subjacent annulus and the overlying bilateral L5 pedicles. Sacrum appears intact. There is a left hip prosthesis noted. PARASPINAL SOFT TISSUES: Visualized paraspinal tissues appear unremarkable. IMPRESSION: 1. Multilevel findings as described individually above. At the L3-4 level there is significant central canal stenosis and bilateral foraminal stenosis. 2. At L4-5 level there is mild central canal stenosis and some foraminal stenosis, more so on the left side. 3. At L5-S1 level there is anterolisthesis of L5 relative to S1 related to bilateral pars defects at this level. This slippage causes the lateral recesses to be carried forward and this, combined with some disc space narrowing at this level results in significant bilateral foraminal stenosis with impingement of the bilateral exiting nerve roots between the pseudo herniation of the annulus at this L5-S1 level and the overlying L5 pedicles Other findings as above. Report called by myself to ER physician 11/06/2025 at 2:48 p.m. RADIATION DOSE DELIVERED: 1,163.13mGy.cm Total DLP DATA REPOSITORY: All CT scans at this facility are submitted to the National Radiology Data Registry (NRDR) Dose Index Registry (DIR) with the [employer] ([employer]). RADIATION OPTIMIZATION: All CT scans at this facility use at least one of these dose optimization techniques: automated exposure control; mA and/or kV adjustment per patient size (includes targeted exams where dose is matched to clinical indication); or iterative reconstruction.
[2025-11-06] MEDS: Cyclobenzaprine 10 MG TAB PO (13:32)
[2025-11-06] MEDS: Ibuprofen 600 MG TAB PO (13:32)
[2025-11-06] MEDS: Lidocaine 5% Patch 1 PATCH TP (13:32)
[2025-11-06] MEDS: Acetaminophen 500 MG TAB 1000 MG PO (13:32)
--- NOTE | 2025-11-06 13:58 | W.ED.GENAD ---
Discharge Plan Disposition Patient Disposition: Home Discharge Details Clinical Impression: Sciatica of left side, Lower back pain, Spinal stenosis Primary Care Provider: Marek Griffith ED Provider: Anthony Solo Home Meds and New Rx's Prescriptions: New cyclobenzaprine 10 mg tablet 10 mg PO TID PRNQty: 20 0RF acetaminophen [Tylenol] 325 mg tablet 975 mg PO ONCE PRNQty: 60 0RF ibuprofen 600 mg tablet 600 mg PO Q6H PRNQty: 30 0RF lidocaine [Lidoderm] 5 % adhesive patch,medicated 1 patch topical DAILY Qty: 15 0RF Rx Instructions: leave on most painful area for up to 12 hrs No Action albuterol sulfate 90 mcg/actuation HFA aerosol inhaler 2 puff inhalation Q6H PRN trazodone 50 mg tablet 50 mg PO QHS PRN fluticasone propionate 50 mcg/actuation spray,suspension 1 spray intranasal DAILY PRN Rx Instructions: administer into each nostril testosterone cypionate 100 mg/mL oil 100 mg IM Q2W ibuprofen 600 mg tablet 600 mg PO Q8H PRN alprazolam [Xanax] 0.5 mg tablet 0.5 mg PO ONCE PRN (Reason: Claustrophobia) Qty: 2 0RF Rx Instructions: Take 1 60 minutes prior to MRI. May take an additional 1 if still anxious 30 minutes prior to MRI. Glucosamine Chondr Complex capsule 125 mg PO DAILY tacrolimus 0.1 % ointment 1 applic topical DIRECTED Discharge Instructions Instructions: Lumbar spinal stenosis, Sciatica ED Additional Instructions: As discussed, your CT today showed multiple levels of your lower back which have arthritic changes including spinal stenosis and bilateral pars defects. These chronic changes may have been exacerbated by your recent yardwork causing pressure on their nerve roots exiting the spinal cord, and causing your worsening left lower extremity pain today. Or, this may reflect a advancement in your chronic spine disease. Given your normal sensory exam and motors exam today, I would recommend following up with physical therapy, as well as your primary care provider who may want to obtain an MRI for further evaluation. However if you develop new or concerning symptoms such as leg weakness, paralysis, loss of control of bowel or bladder, I would seek evaluation in the emergency department immediately. Please follow-up with your primary care provider regarding your visit to the emergency department today. Be sure to discuss results of all test performed here today to include radiology, and laboratory testing as well as results for any pending cultures. Should your symptoms worsen, or if you develop new concerning symptoms, please return immediately emergency department for further evaluation. Stand Alone Forms: Physical Therapy Referral, Portal Information HPI General Date/Time Provider Initiated Documentation: 11/06/25 13:02. HPI Narrative: MDM/Narrative: 70-year-old male presents for left-sided sciatica x 4 to 5 days following doing yard work. Neurological exam shows intact strength and reflexes throughout the bilateral lower extremities. Patient is ambulatory however significant pain with flexion of the hip. Given advanced age, will obtain CT imaging as well as x-ray of the pelvis due to his prior hardware implant, low concern for cauda equina at this time given chronicity of symptoms, preserved strength and reflexes. ED course: Patient with improved symptoms following medication. X-ray shows no acute findings of the hip, CT imaging as below with multiple chronic degenerative changes of the lumbar and sacral spine. Plan of care discussed with patient and his agreeable to plan follow-up with PT and the primary care as the patient's symptoms are not accompanied with any acute neurologic changes. Reviewed signs of cauda equina syndrome with the family who are in agreement with the plan for discharge. Disposition: Home HPI: 70-year-old male presents for evaluation of left lower back pain radiating to the left thigh. Patient states that 4 to 5 days ago he went to do some yard work, then laid down to take a nap while sleeping on his stomach. He states when he woke up he was unable to move due to excruciating pain in his lower back rating down his left leg to the level of his thigh. Notes symptoms have not improved over the past several days despite visiting PT, and he is concerned that this might be a problem with his old left hip replacement. He denies any known trauma, fever, chills, loss of control of bowel or bladder, numbness, weakness or any other new or concerning symptoms. ROS: Negative besides as mentioned above Exam: Gen: A&O NAD HEENT: NCAT, EOMI, not icteric. External ears normal. No rhinorrhea. Moist mucous membranes. Neck: Supple, full range of motion, no observable masses, No meningeal sign. Lungs: No Respiratory distress. CV: RRR, no edema. Abdomen: Soft, nondistended, No rebound tenderness. MSK: No joint swelling, no redness. Skin: No rashes, petechiae, lesions. Normal color per patient. Neuro: Normal Gait, Grossly intact. Motor strength is 5 out of 5 in the lower extremities bilaterally. Knee and ankle deep tendon reflexes are 2+ bilaterally and symmetric. Sensation to sharp and dull stimuli intact throughout the bilateral lower extremities. Psych: Appropriate for situation. Radiology: Accession No. : [id number] Creator : Barry Dumont Dictator : Barry Dumont Cloth Layer : Visual [employer] Associate : Barry Dumont Approver2 : Report Date : 11/06/2025 14:16:16 Exam(s) XR HIP LT COMPLETE AP PELVIS EXAM: XR HIP LT COMPLETE AP PELVIS CLINICAL HISTORY: hx of replacement with left hip pain. TECHNIQUE: 2D digital imaging was performed. COMPARISON: CR XR HIP RT COMPLETE AP PELVIS from 05/05/2022 FINDINGS: 3 views No evidence of acute pelvic nor hip fracture. The left hip prosthesis appears intact with no evidence of fracture or loosening. There is no radiographic evidence of osteomyelitis. IMPRESSION: No acute osseous findings. DATA REPOSITORY: RADIATION DOSE DELIVERED: Related Data Home Medications ?Medication ?Instructions ?Recorded ?Confirmed albuterol sulfate 90 mcg/actuation 2 puff inhalation Q6H PRN 08/21/20 11/06/25 aerosol inhaler fluticasone propionate 50 1 spray intranasal DAILY PRN 11/21/22 11/06/25 mcg/actuation nasal spray,suspension Glucosamine Chondr Complex 125 mg PO DAILY 01/05/23 11/06/25 tacrolimus 0.1 % topical ointment 1 applic topical DIRECTED 01/05/23 11/06/25 trazodone 50 mg tablet 50 mg PO QHS PRN 10/03/23 11/06/25 ibuprofen 600 mg tablet 600 mg PO Q8H PRN 07/28/25 11/06/25 testosterone cypionate 100 mg/mL 100 mg IM Q2W 07/28/25 11/06/25 intramuscular oil alprazolam 0.5 mg tablet (Xanax) 0.5 mg PO ONCE PRN Claustrophobia 07/30/25 11/06/25 #2 tabs acetaminophen 325 mg tablet 975 mg (3 x 325 mg) PO ONCE PRN 11/06/25 (Tylenol) #60 tabs cyclobenzaprine 10 mg tablet 10 mg PO TID PRN #20 tabs 11/06/25 ibuprofen 600 mg tablet 600 mg PO Q6H PRN #30 tabs 11/06/25 lidocaine 5 % topical patch 1 patch topical DAILY #15 ea 11/06/25 (Lidoderm) Previous Rx's ?Medication ?Instructions ?Recorded alprazolam 0.5 mg tablet (Xanax) 0.5 mg PO ONCE PRN Claustrophobia 07/30/25 #2 tabs acetaminophen 325 mg tablet 975 mg (3 x 325 mg) PO ONCE PRN 11/06/25 (Tylenol) #60 tabs cyclobenzaprine 10 mg tablet 10 mg PO TID PRN #20 tabs 11/06/25 ibuprofen 600 mg tablet 600 mg PO Q6H PRN #30 tabs 11/06/25 lidocaine 5 % topical patch 1 patch topical DAILY #15 ea 11/06/25 (Lidoderm) Allergies Allergy/AdvReac Type Severity Reaction Status Date / Time diphenhydramine (From Allergy Severe Other (See Verified 11/06/25 14:01 Benadryl) Comment) sertraline Allergy Intermediate Other (See Verified 11/06/25 14:01 Comment) Latex, Natural Rubber Allergy Mild Itching Verified 11/06/25 14:01 zolpidem (From Ambien) AdvReac Severe Psychosis Verified 11/06/25 14:01 bupropion AdvReac Intermediate Other (See Verified 11/06/25 14:01 Comment) loratadine (From Claritin) AdvReac Intermediate COUGH Verified 11/06/25 14:01 mirtazapine AdvReac Intermediate Other (See Verified 11/06/25 14:01 Comment) General Stated Complaint: Orthopedic CASTRO: 3 Course Vital Signs Vital signs: Vital Signs Temperature 37.1 C 11/06/25 13:07 Pulse 79 11/06/25 13:07 Respiratory Rate 16 11/06/25 13:07 Blood Pressure 138/83 11/06/25 13:07 Pulse Oximetry 98 11/06/25 13:07 Temperature 37.1 C 11/06/25 13:07 Temperature Source Oral 11/06/25 13:07 Pulse 79 11/06/25 13:07 Respiratory Rate 16 11/06/25 13:07 Blood Pressure 138/83 11/06/25 13:07 Blood Pressure Position Sitting 11/06/25 13:07 Pulse Oximetry 98 11/06/25 13:07 Oxygen Delivery Method Room Air 11/06/25 13:07 Oxygen Flow Rate 0 11/06/25 13:07 Pain Level 7 11/06/25 13:07 PFSH All Active Problems (Updated 11/06/25 @ 15:24 by Anthony Solo MD) Spinal stenosis (Acute) Lower back pain (Acute) Sciatica of left side (Acute) Tear of medial meniscus of left knee (Acute) Arthritis of left knee (Acute) Internal derangement of left knee (Acute) Left medial knee pain (Acute) Mass of left parotid gland (Acute) Facial paresthesia (Acute) Lumbar radiculopathy (Acute) Pars defect with spondylolisthesis (Acute) Restrictive lung disease (Acute) 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) (Acute) Standard chest x-ray abnormal (Acute) Prediabetes (Acute) Obesity (Chronic) Hypertension (Chronic) Chest pain, atypical (Acute) Trochanteric bursitis, left hip (Acute) History of total left hip arthroplasty (Acute 12/31/19) Tubular adenoma of colon (Acute) Avascular necrosis of bone of left hip (Acute) s/p L ROSE on 12/31/19 Postoperative anemia due to acute blood loss (Acute) Medical History (Updated 11/06/25 @ 15:24 by Anthony Solo MD) Internal derangement of right knee Abnormal chest x-ray Obesity (BMI 30.0-34.9) Insomnia due to mental condition History of prediabetes Personal history of COVID-19 Back pain with radiculopathy White coat syndrome with diagnosis of hypertension Hearing impairment Asthma, intermittent Allergic rhinitis due to animals H/O adenomatous polyp of colon Hyperlipidemia Vitamin D deficiency Fatigue Psoriasis Reactive depression Anxiety PTSD (post-traumatic stress disorder) Genital herpes Tension headache Exertional dyspnea Memory impairment Right hip pain Erectile dysfunction Detached retina Hx of concussion Hx of dislocation of shoulder Hx of pleural effusion Hx of tuberculosis MULTIPLE CXR CLEARING PT. 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
--- NOTE | 2025-11-06 14:08 | DI.RAD_ITS ---
Exam(s) XR HIP LT COMPLETE AP PELVIS EXAM: XR HIP LT COMPLETE AP PELVIS CLINICAL HISTORY: hx of replacement with left hip pain. TECHNIQUE: 2D digital imaging was performed. COMPARISON: CR XR HIP RT COMPLETE AP PELVIS from 05/05/2022 FINDINGS: 3 views No evidence of acute pelvic nor hip fracture. The left hip prosthesis appears intact with no evidence of fracture or loosening. There is no radiographic evidence of osteomyelitis. IMPRESSION: No acute osseous findings. DATA REPOSITORY: RADIATION DOSE DELIVERED:
[2025-11-06] MEDS: Dexamethasone 4 MG TAB 12 MG PO (14:47)
[2025-11-06 15:33] VITALS: BP 122/56; PULSE 55; RESP 20; O2SAT 98
== END 2025-11-06 15:34 | disposition home or self-care (01) ==
PROVIDERS: Emergency Provider General Practice; PCP Family Medicine
DX: M54.32 Sciatica, left side (principal); M48.00 Spinal stenosis, site unspecified; M54.50 Low back pain, unspecified; Z96.642 Presence of left artificial hip joint
CPT/HCPCS: 99284 ×2; 72131; 73502; J8540